=== PATIENT | male | born 1950 ===

== ENCOUNTER 2024-02-24 13:03 | Outpatient (REF) | payer OTHER, MEDICAID, SELFPAY ==
[2024-02-24 16:47] LABS: Urine Cytology See Pathology rpt
== END 2024-02-24 13:04 | disposition home or self-care (01) ==
LOC: HO.LAB 13:03
PROVIDERS: PCP Nurse Practitioner Family; Visit Provider Urology
DX: N39.0 Urinary tract infection, site not specified (principal); N50.89 Other specified disorders of the male genital organs; R32 Unspecified urinary incontinence; N40.1 Benign prostatic hyperplasia with lower urinary tract symptoms; R30.0 Dysuria; Z13.9 Encounter for screening, unspecified
CPT/HCPCS: 51798; 81003; 87086; 88112; 99202

== ENCOUNTER 2024-02-24 13:03 | Outpatient (AMB) | payer OTHER, MEDICAID, SELFPAY ==
--- NOTE | 2024-02-24 13:18 | MHC.OFFVIS ---
Intake Visit Reasons: scrotal abcess Intake Note: Patient is present for [facility]CR[facility] ABC[facility] Urology Medication:FINASTERIDE Antibiotic Allergy:NONE Blood Thinner:ASPIRIN TODAYS PVR:0ML'S [employer] Promotional Sales Required: No Allergies No Known Allergies Allergy (Verified 02/24/24 13:19) HPI Comments Details: States had colonscopy, and 2-3 days later, there was swelling in the testicle he states he received a cream which improved the swelling and now his symptoms are resolved. He states it ibanez when he urinates. He wears pull ups Review of Systems Const All systems reviewed & are unremarkable except as noted in HPI and below Reports no additional complaints Eyes Reports no additional complaints ENT Reports no additional complaints Card Reports no additional complaints Resp Reports no additional complaints GI Reports no additional complaints Reports as per HPI Musc Reports no additional complaints Skin/Breast Reports system reviewed and no additional complaints, except as documented Neuro Reports no additional complaints Psych Reports no additional complaints Endo Reports no additional complaints Vivek/Lymph Reports no additional complaints Aller/Immun Reports no additional complaints Physical Exam Const General: healthy appearing, no acute distress and well developed Orientation/consciousness: patient oriented x3 HEENT Head: Yes normocephalic and Yes atraumatic Eyes Conjunctivae: conjunctivae normal Neck Neck: Yes normal visual inspection Chest Chest palpation & inspection: normal inspection of the chest Resp Effort & Inspection: normal respiratory effort Cardio Rate: regular rate GI Inspection: Yes normal to inspection Palpation (GI): Soft to palpation Other: bilateral testicles, no swelling, nontender Penis: uncircumcised and phimosis Scrotum: scrotum normal Skin General skin exam: no rashes or lesions noted Neuro General: patient oriented x3 Psych Appearance: grossly normal Affect: normal affect Office Procedures Post Void Residual Post Residual Void Post Void Residual (PVR): 0 [id number] Void Residual by ultrasound Assessment & Plan Assessment & Plan Orders: Orders AMB Urinalysis Automated Today Z13.9 - Encounter for screening, unspecified Coding CPT Codes Post Residual Void - PVR CPT Code: [id number] Void Residual by ultrasound ([id number])
== END 2024-02-24 14:41 | disposition home or self-care (01) ==
PROVIDERS: PCP Nurse Practitioner Family; Visit Provider Urology
DX: Z13.9 Encounter for screening, unspecified (principal)

== ENCOUNTER 2024-03-07 08:57 | Outpatient (REF) | payer OTHER, SELFPAY ==
[2024-03-07 11:08] LABS: Prostate Specific Antigen 0.41 ng/mL (<0.05-4.0)
== END 2024-03-07 08:58 | disposition home or self-care (01) ==
LOC: HO.LAB 08:57
PROVIDERS: PCP Internal Medicine; Visit Provider Urology
DX: N41.2 Abscess of prostate (principal); Z12.5 Encounter for screening for malignant neoplasm of prostate
CPT/HCPCS: 36415; 84153

== ENCOUNTER 2024-03-30 09:31 | Outpatient (REF) | payer OTHER, SELFPAY ==
--- NOTE | ~2024-03-30 | US_ITS ---
CLINICAL HISTORY: R39.9 - UTI SYMPTOMS US Renal Comparison: None Findings: Right kidney normal size and echotexture, 13 cm length. Multiple benign cysts are noted. Left kidney normal size and echotexture, 11.7 cm length. Left-sided hydronephrosis and hydroureter. Normal color Doppler. The bladder is thick-walled, trabeculated and exhibits multiple diverticulum. Prevoid volume 400 mL. Postvoid volume 261 mL. Floating debris is present within the bladder. Bilateral ureteral jets are visualized. The prostate volume is 46 mL. IMPRESSION: Thick-walled trabeculated bladder with multiple diverticulum and significant postvoid residual. Left-sided hydronephrosis and hydroureter. This document has been electronically signed by: Garrison Martinez MD on 03/30/2024 13:16:53
--- OUTSIDE RECORDS SUMMARY | 2024-03-30 10:00 | XMS_ITS | Encounter Summary ---
Author Organization [facility] Address [address] [place] [address] Care Team Providers Care Webfocus Developer Name Role Phone Jos Pineda MD Primary Care Provider [phone] Reason for Visit * Reason Onset Date Comments Request For Order(s) 03/27/2024 [facility] - [id number] Encounter Details Date Type Department Care Team (Late st Contact Info) Description 03/27/2024 Telephone Internal Medicine - [place] [address] [place] [address] Nohelia Melo MA Request For Order(s) (Formerly [facility] - L3F7/) Social History Tobacco Use Types Packs/Day Years Used Date Smoking Tobacco: Every Day Cigarettes Smokeless Tobacco: Former Alcohol Use Standard Drinks/Week Comments No 0 (1 standard drink = 0.6 oz pur e alcohol) Sex and Gender Information Value Date Recorded Sex Assigned at Not on file Legal Sex Male 7:40 PM EST Gender Identity Not on file Sexual Orientation Not on file documented as of this encounter Progress Notes * Nohelia Melo MA - 03/29/2024 7:28 AM EST Scanned into chart and faxed to [facility] [phone] * Nohelia Melo MA - 03/27/2024 8:08 AM EST [facility] - L3F7 Please sign & fax [phone] documented in this encounter Plan of Treatment Upcoming Encounters Date Type Department Care Team (Late st Contact Info) Description 04/11/2024 10:00 AM EST Ancillary Procedure [facility] - [facility] 154 [address] [facility] 154 [place] [address] 04/27/2024 8:45 AM EDT Office Visit Orthopedic Surgery - [place] 250 175 [facility] 250 [place] [address] Sravan Jimenez DPM [address] [address] 05/05/2024 3:40 PM EDT Office Visit Endocrinology [facility] [address] [place] [address] Kylee Rueda PA 444 [place] [address] 08/30/2024 8:30 AM EDT Office Visit Internal Medicine - [place] 175 [facility] 200 [place] [address] Jos Pineda MD [address] [address] documented as of this encounter Visit Diagnoses Not on filedocumented in this encounter Additional Health Concerns Assessment Noted Time PHQ-9 Depression Total Score: 2 03/01/19 9:22 AM EST A fall risk assessment has been complete d for the patient 03/01/2024 9:19 AM EST documented as of this encounter Care Teams Webfocus Developer Relationship Specialty Start Date End Date Jos Pineda MD [address] [address] PCP - General Internal Medicine 12/17/17 documented as of this encounter
--- OUTSIDE RECORDS SUMMARY | 2024-03-30 10:00 | XMS_ITS | Encounter Summary ---
Author Organization [facility] Address [address] [place] [address] Care Team Providers Care Etcher Electrolytic Name Role Phone Jos Pineda MD Primary Care Provider [phone] Reason for Visit * Reason Onset Date Comments Request For Order(s) 03/27/2024 [facility] Care Cert 02/27/24-04/26/24 Encounter Details Date Type Department Care Team (Late st Contact Info) Description 03/27/2024 Telephone Internal Medicine - [place] [address] [place] [address] Nohelia Melo MA Request For Order(s) ([facility] Health Care Cert 02/27/24-04/26/24/) Social History Tobacco Use Types Packs/Day Years [...] Notes * Nohelia Melo MA - 03/29/2024 7:18 AM EST Scanned into chart and faxed to [facility] [phone] * Nohelia Melo MA - 03/27/2024 8:17 AM EST [facility] Health Care Cert 02/27/24-04/26/24 Please sign & fax [phone] documented in this encounter Plan of Treatment Upcoming Encounters Date Type Department Care Team (Late st Contact Info) Description 04/11/2024 10:00 AM EST Ancillary Procedure [facility] - [facility] 154 [address] [facility] 154 [place] [address] 04/27/2024 8:45 AM EDT Office Visit Orthopedic Surgery - [place] [address] [address] Sravan Jimenez DPM [address] [address] 05/05/2024 3:40 PM EDT Office [place] [facility] [address] [place] [address] Kylee Rueda PA [address] [place] [address] 08/30/2024 8:30 AM EDT Office Visit Internal Medicine [facility] 175 [facility] 200 [place] [address] Jos Pineda MD [address] [address] documented as of this encounter Visit Diagnoses Not on filedocumented in this encounter Additional Health Concerns Assessment Noted Time PHQ-9 Depression Total Score: 2 03/01/19 9:22 AM EST A fall risk assessment has been complete d for the patient 03/01/2024 9:19 AM EST documented as of this encounter Care Teams Etcher Electrolytic Relationship Specialty Start Date End Date Jos Pineda MD 175 [facility] 200 [place] [address] PCP - General Internal Medicine 12/17/17 documented as of this encounter
--- OUTSIDE RECORDS SUMMARY | 2024-03-30 10:00 | XMS_ITS | Clinical Summary ---
Author Organization [facility] Address [address] [place] [address] Care Team Providers Care Field Reimbursement Manager Name Role Phone Unavailable Primary Care Provider Unavailabl e Source Comments PLEASE NOTE, if this patient is a minor, it may be UNLAWFUL to discuss sensitive information that is contained in these records (such as FAMILY PLANNING, MENTAL HEALTH or SUBSTANCE ABUSE) with the minor patient's parent or other person without the patient's specific authorization.[facility] Allergies No known active allergies Medications divalproex (DEPAKOTE) [address] tabletIndications :Mood disorder (HCC-CMS) Take 1 Tab by mouth once daily. Swallow whole. Do not crush or chew. 6 Active divalproex (DEPAKOTE ER) 500 mg 24 hr tabletIndications :Mood disorder (HCC-CMS) Take 1 Tab by mouth nightly at bedtime. Swallow whole. Do not crush or chew. 6 Active risperiDONE (RISPERDAL) 2 mg tabletIndications :Mood disorder (HCC-CMS) Take 1 Tab by mouth 2 (two) times daily. 6 Active OLANZapine (ZYPREXA) 15 mg tabletIndications :Mood disorder (HCC-CMS) Take 1 Tab by mouth nightly at bedtime. 6 Active diphenhydrAMINE (BENADRYL) 50 mg tabletIndications :Insomnia due to other mental disorder Take 1 Tab by mouth nightly at bedtime as needed for sleep. 6 Active aspirin (ASPIRIN LOW DOSE) [address] tabletIndications :Diabetes mellitus type 2 in nonobese (HCC-CMS) Take 1 Tab by mouth once daily. 6 Active amLODIPine (NORVASC) 5 mg tabletIndications :Essential hypertension Take 1 Tab by mouth once daily. 6 Active lisinopril (PRINIVIL,ZESTRIL ) 5 mg tabletIndications :Essential hypertension 2.5 mg daily 6 Active metoprolol (LOPRESSOR) 25 mg tabletIndications :Essential hypertension 12.5 mg daily 6 Active simvastatin (ZOCOR) 20 mg tabletIndications :Dyslipidemia Take 1 Tab by mouth nightly at bedtime. 6 Active insulin glargine (LANTUS) 100 unit/mL injectionIndicati ons:Diabetes mellitus type 2 in nonobese ([facility]) Inject 80 Units into the skin once daily. 10 mL 6 Active liraglutide (VICTOZA) 0.6 mg/0.1 mL (18 mg/3 mL) injection penIndications:Di abetes mellitus type 2 in nonobese ([facility]) Inject 1.2 mg into the skin once daily. 6 Active Active Problems No known active problems Family History Medical History Relation Name Comments Depression Maternal Grandmother Diabetes Mother Relation Name Status Comments Father Maternal Grandmother Mother Alive Social History Tobacco Use Types Packs/Day Years Used Date Smoking Tobacco: Every Day Comments:since age 19 years of age, 1 pack a day Alcohol Use Standard Drinks/Week Comments No 0 (1 standard drink = 0.6 oz pur e alcohol) Social Connections Answer Date Recorded Connectedness 0 11/04/2023 Financial Resource Strain Answer Date R ecorded Financial Resource Strain 0 2020 Stress Answer Date Recorded Stress 0 02/06/2021 Physical Activity Answer Date Recorded Physical Activity 0 02/06/2021 Food Insecurity Answer Date Recorded Food 0 11/11/2023 Transportation Needs Answer Date Record ed Transportation 0 02/06/2021 Housing Stability Answer Date Recorded Housing 0 02/06/2021 Safety and Environment Answer Date Yaya rded Safety 0 02/06/2021 Utilities Answer Date Recorded Utilities 0 02/06/2021 Employment Answer Date Recorded Stress 0 11/04/2023 Sex and Gender Information Value Date Recorded Sex Assigned at Not on file Legal Sex Male 7:26 AM PDT Gender Identity Not on file Sexual Orientation Not on file Last Filed Vital Signs Vital Sign Reading Time Taken Comments Blood Pressure 110/68 08/23/2015 10:22 AM EDT Pulse 80 08/23/2015 10:22 AM EDT Temperature 36.5 ??C (97.7 ??F) 08/23/2015 10:22 AM E DT Respiratory Rate 16 08/23/2015 10:22 AM EDT Oxygen Saturation - - Inhaled Oxygen Concentration - - Weight 94.8 kg (209 lb) 08/23/2015 10:22 AM EDT Height 186.7 cm (6' 1.5 ) 08/23/2015 10:22 AM ED T Body Mass Index 27.2 08/23/2015 10:22 AM EDT Plan of Treatment Not on file Insurance MEDICARE - [place] MEDICAID
--- OUTSIDE RECORDS SUMMARY | 2024-03-30 10:00 | XMS_ITS | Encounter Summary ---
Author Organization [facility] Address [address] [place] [address] Care Team Providers Care Nibbler Operator Name Role Phone Jos Pineda MD Primary Care Provider [phone] Encounter Details Date Type Department Care Team (Late st Contact Info) Description 03/02/2024 Telephone Internal Medicine - [place] 175 [facility] 200 [place] [address] Jos Pineda MD 175 [facility] 200 [place] [address] Social History Tobacco Use Types Packs/Day Years [...] as of this encounter Progress Notes * Daily Gunn - 03/02/2024 9:16 AM EST Patient needs referral Podiatry - diabetic foot care. documented in this encounter Plan of Treatment Upcoming Encounters Date Type Department Care Team (Late st Contact Info) Description 04/11/2024 10:00 AM EST Ancillary Procedure [facility] - [facility] [address] [facility] 154 [place] [address] 04/27/2024 8:45 AM EDT Office Visit Orthopedic Surgery - [place] 250 175 [facility] 250 [place] [address] Sravan Jimenez DPElisha [address] [address] 05/05/2024 3:40 PM EDT Office Visit [place] [facility] [address] [place] [address] Kylee Rueda PA [address] [place] [address] 08/30/2024 8:30 AM EDT Office Visit Internal Medicine - [place] [address] [address] Jos Pineda MD [address] [address] documented as of this encounter Visit Diagnoses Not on filedocumented in this encounter Additional Health Concerns Assessment Noted Time PHQ-9 Depression Total Score: 2 03/01/19 9:22 AM EST A fall risk assessment has been complete d for the patient 03/01/2024 9:19 AM EST documented as of this encounter Care Teams Nibbler Operator Relationship Specialty Start Date End Date Jos Pineda MD [address] [address] PCP - General Internal Medicine 12/17/17 documented as of this encounter
--- OUTSIDE RECORDS SUMMARY | 2024-03-30 10:00 | XMS_ITS | Encounter Summary ---
Author Organization [facility] Address [address] [place] [address] Care Team Providers Care Content Development Specialist Name Role Phone Jos Pineda MD Primary Care Provider [phone] Reason for Visit * Reason Onset Date Comments Request For Order(s) 03/27/2024 [facility] - LXGY Encounter Details Date Type Department Care Team (Late st Contact Info) Description 03/27/2024 Telephone Internal Medicine - [place] [address] [facility] [address] [place] [address] Nohelia Melo MA Request For Order(s) ([facility] Care - LXGY) Social History Tobacco Use Types Packs/Day Years [...] Notes * Nohelia Melo MA - 03/29/2024 7:30 AM EST Scanned into chart and faxed to [facility] [phone] * Nohelia Melo MA - 03/27/2024 7:36 AM EST [facility] Care - LXGY Please sign & fax [phone] documented in this encounter Plan of Treatment Upcoming Encounters Date Type Department Care Team (Late st Contact Info) Description 04/11/2024 10:00 AM EST Ancillary Procedure [facility] - [facility] 154 [address] [facility] 154 [place] [address] 04/27/2024 8:45 AM EDT Office Visit Orthopedic Surgery - [place] 250 175 [facility] 250 [place] [address] Sravan Jimenez, DPM [address] [address] 05/05/2024 3:40 PM EDT Office Visit Endocrinology [facility] [address] [place] [address] Kylee Rueda PA [address] [place] [address] 08/30/2024 8:30 AM EDT Office Visit Internal Medicine - [place] 175 [facility] 200 [place] [address] Jos Pineda MD [address] [address] documented as of this encounter Visit Diagnoses Not on filedocumented in this encounter Additional Health Concerns Assessment Noted Time PHQ-9 Depression Total Score: 2 03/01/19 9:22 AM EST A fall risk assessment has been complete d for the patient 03/01/2024 9:19 AM EST documented as of this encounter Care Teams Content Development Specialist Relationship Specialty Start Date End Date Jos Pineda MD [address] [address] PCP - General Internal Medicine 12/17/17 documented as of this encounter
--- OUTSIDE RECORDS SUMMARY | 2024-03-30 10:01 | XMS_ITS | Encounter Summary ---
Author Organization [facility] Address [address] [place] [address] Care Team Providers Care Safety Equipment Tester Name Role Phone Jos Pineda MD Primary Care Provider Reason for Referral * Consultation (Routine) - Authorized Specialty Diagnoses / Procedures Referred By Contact Referred To Contact Podiatry / Orthopaedic Surgery Diagnoses Dermatophytosis of nail Jos Pineda MD 175 [facility] [address] [place] [address] Phone: tel: fax: Sravan Jimenez, DPM 175 [facility] [address] [place] [address] Phone: tel: fax: Referral ID Status Reason Start Date Expiration Date Visits Requested Visits Authorized [id number] Authorized Specialty Services Required 03/01/2024 03/01/2025 1 1 Reason for Visit * Reason Comments Medicare Annual Wellness Visit [facility] t Encounter Details Date Type Department Care Team (Late st Contact Info) Description 03/01/2024 9:30 AM EST Office Visit Internal Medicine - [place] 175 [facility] [address] [place] [address] Jos Pineda MD 175 [facility] 200 [place] [address] Type 2 diabetes mellitus without complication, with long-term current use of insulin ([facility]) (Primary Dx); Primary hypertension; Dermatophytosis of nail; Smoker Social History Tobacco Use Types Packs/Day Years [...] on file documented as of this encounter Last Filed Vital Signs Vital Sign Reading Time Taken Comments Blood Pressure 134/80 03/01/2024 9:16 AM EST Pulse 66 03/01/2024 9:16 AM EST Temperature 36.3 ??C (97.3 ??F) 03/01/2024 9:16 AM ES T Respiratory Rate - - Oxygen Saturation 97% 03/01/2024 9:16 AM EST Inhaled Oxygen Concentration - - Weight 92.5 kg (204 lb) 03/01/2024 9:16 AM EST Height 185.4 cm (6' 1 ) 03/01/2024 9:16 AM EST Body Mass Index 26.91 03/01/2024 9:16 AM EST documented in this encounter Ordered Prescriptions Prescription Sig Dispense Quantity Refills Last Filled Start Date End Date atorvastatin (LIPITOR) 10 mg tablet Take 1 tablet (10 mg total) by mouth 1 (one) time each day. 30 each 5 03/01/2024 08/28/2024 documented in this encounter Progress Notes * Jos Pineda MD - 03/01/2024 9:30 AM ESTAssociated Problem(s): Diabetes mellitus type 2, uncomplicated ([facility]) Diabetes need better control on Lantus insulin metformin and Humalog insulin A1c done recently was 8 * Jos Pineda MD - 03/01/2024 9:30 AM ESTAssociated Problem(s): Hypertension Hypertension is under control on lisinopril and amlodipine. * Jos Pineda MD - 03/01/2024 9:30 AM ESTAssociated Problem(s): Dermatophytosis of nail Orders: Ambulatory referral to Podiatry; Future * Jos Pineda MD - 03/01/2024 9:30 AM ESTAddended by: JOS PINEDA on: 03/13/2024 06:27 PM Modules accepted: Level of Service * Jos Pineda MD - 03/01/2024 9:30 AM EST Images from the original note were not included. Medicare Annual Wellness Visit Note Patient Name: Koko Sosa Date of : 1950 Race: Black or Koko chose not to disclose race. This has been discussed with the patient and they still prefer not to disclose their race. Ethnicity: Not Hispan/Lat Date of Service: 03/01/2024 Koko is a 73 y.o. male presenting for Medicare Annual Wellness Visit Subsequent History of Present Illness HPI Diabetes needs better control on metformin Lantus insulin and Humalog. Hypertension is under control on amlodipine and lisinopril. Comprehensive Medical and Social History: Patient Active Problem List Diagnosis Atrioventricular block, complete (CMS/HCC) Benign prostatic hyperplasia Cellulitis of leg, left Coronary artery disease Dermatophytosis of nail Diabetes mellitus type 2, uncomplicated (CMS/HCC) Dysphagia Edema Fall GERD (gastroesophageal reflux disease) Hyperlipidemia Hypertension Lactose intolerance Pulmonary nodules/lesions, multiple Schizophrenia (CMS/HCC) Sacral wound Type 2 diabetes mellitus with diabetic neuropathy, unspecified (CMS/HCC) Essential (primary) hypertension Schizoaffective disorder, unspecified (CMS/HCC) Gastro-esophageal reflux disease without esophagitis 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 Follow instructions given by office for timing diphenhydrAMINE (BENADRYL) 25 mg tablet 25 mg as needed. divalproex (DEPAKOTE) [address] tablet Take 500 mg by mouth 2 times daily. 500 mg in AM and 1000mg in PM finasteride (PROSCAR) 5 mg tablet Take 1 tablet (5 mg total) by mouth 1 (one) time each day. furosemide (LASIX) 20 mg tablet Take 1 tablet (20 mg total) by mouth 1 (one) time each day. gabapentin (NEURONTIN) 100 mg capsule Take 100 mg by mouth daily. Per [facility] report ibuprofen (ADVIL,MOTRIN) 600 mg tablet Take 1 tablet by mouth every 6 hours as needed for Pain. Take with food. insulin lispro (HumaLOG KwikPen Insulin) 100 unit/mL injection pen Use before each meal, up to 3 times a day, sliding scale 100-149: 0 units 150-199: 2 units 200-249: 3 units 250-299: 4 units 300-349:5 units 350-400: 6 units Greater than 400, call me. Lantus Solostar U-100 Insulin 100 unit/mL (3 mL) injection pen INJECT 48-50 UNITS INTO THE SKIN AT BEDTIME. 48-50 U PER NIGHT 45 mL 2 lisinopriL (PRINIVIL,ZESTRIL) 2.5 mg tablet Take 1 tablet (2.5 mg total) by mouth 1 (one) time eachday. metFORMIN (GLUCOPHAGE) 1,000 mg tablet TAKE 1 TABLET BY MOUTH TWICE A DAY WITH MEALS 180 tablet 1 metoprolol succinate (TOPROL-XL) 25 mg 24 hr tablet Take 1 tablet (25 mg total) by mouth 1 (one) time each day. naproxen sodium (ANAPROX) 220 mg tablet Take 1 Tablet by mouth 2 times daily (with meals). OLANZapine (ZyPREXA) 10 mg tablet Take 10 mg by mouth at bedtime. Per [facility] report pen needle, diabetic (BD Ultra-Fine Short Pen Needle) 31 gauge x 5/16 needle USE WITH INSULIN PEN ONCE DAILY. polyethylene glycol (GoLYTELY) 236-22.74-6.74 -5.86 gram solution Take 240 mL by mouth once for 1 dose. Take 4L by mouth once for one dose. May substitue any PEG. Starting at 6PM the night before your procedure drink 1 8oz glasses at your own pace until rectals run clear risperiDONE (RisperDAL) 2 mg tablet Take 2 mg by mouth 2 times daily. senna-docusate (Senna with Docusate Sodium) 8.6-50 mg per tablet Take 1 Tablet by mouth daily for 360 days tamsulosin (FLOMAX) 0.4 mg 24 hr capsule Take 1 Capsule by mouth daily. Take 30 mins after same meal every day. No current facility-administered medications for this visit. Past Medical History: Diagnosis Date Benign prostatic hyperplasia 05/23/2019 DX:Benign prostatic hyperplasia Coronary artery disease 05/23/2019 DX:Coronary artery disease; COMMENT: Old [place] 1995 Dermatophytosis of nail 01/26/2013 DX:Dermatophytosis of nail Diabetes mellitus type 2, uncomplicated ([facility]) 05/13/2017 DX:Diabetes mellitus type 2, uncomplicated ([facility]) GERD (gastroesophageal reflux disease) 05/23/2019 DX:GERD (gastroesophageal reflux disease) History of encephalopathy 04/14/2017 DX:History of encephalopathy History of rhabdomyolysis 04/14/2017 DX:History of rhabdomyolysis Hyperlipidemia 05/13/2017 DX:Hyperlipidemia Hypertension 05/13/2017 DX:Hypertension Lactose intolerance 05/23/2019 DX:Lactose intolerance Pulmonary nodules/lesions, multiple 09/04/2014 DX:Pulmonary nodules/lesions, multiple S/P placement of cardiac pacemaker 05/13/2017 DX:S/P placement of cardiac pacemaker; COMMENT: Comments: 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 Sacral wound 03/30/2017 DX:Sacral wound Schizophrenia ([facility]) 05/13/2017 DX:Schizophrenia ([facility]) Tobacco abuse disorder DX:Tobacco abuse disorder Past Surgical History: Procedure Laterality Date CATARACT EXTRACTION Bilateral 10/2014 PROCEDURE: HISTORICAL CATARACT REMOVAL COLONOSCOPY 12/19/2001 PROCEDURE: HISTORICAL COLONOSCOPY COLONOSCOPY 06/18/2016 PROCEDURE: HISTORICAL COLONOSCOPY; COMMENT: repeat 3 years OTHER SURGICAL HISTORY PROCEDURE: ME BIOPSY TESTIS INCISIONAL SEPARATE PROCEDURE Social History Socioeconomic History Marital status: Single Spouse name: Not on file Number of children: Not on file Years of education: 11 Highest education level: Not on file Occupational History Not on file Tobacco Use Smoking status: Every Day Current packs/day: 1.00 Types: Cigarettes Smokeless tobacco: Former Substance and Sexual Activity Alcohol use: No Drug use: Not Currently Types: Cocaine Sexual activity: Not on file Other Topics Concern Not on file Social History Narrative Not on file Family History Problem Relation Name Age of Onset Diabetes Mother 80.00 Other (Other: unkown) Father 52.00 Immunizations: Immunization History Administered Date(s) Administered Influenza, Unspecified 12/05/2020 [employer] SARS-CoV-2 COVID-19, vector-nr, rS-Ad26, preservative free 05/03/2020 Pfizer (ages 12 & older) Bivalent, COVID-19 04/04/2022 Pfizer SARS-CoV-2 COVID-19, mRNA, LNP-S, preservative free 12/05/2020 Pneumococcal conjugate 20 valent (Prevnar 20, PCV 20) 2mo and older 03/19/2022 Hospitalization in the last year: Has not been hospitalized in the past 12 months. Current Providers and Suppliers: Patient Care Team: Jos Pineda MD as PCP - General (Internal Medicine) Eliseo Morejon MD as Surgeon (Cardiology) Olivia Haskins NP as Nurse Practitioner (Cardiology) Patient does not have/use current medical supplier Risk Assessments: Cognitive Function Assessment No cognitive concerns, No screenings indicated. Depression Screening (PHQ2/9): Depression Screening Over the last 2 weeks, how often have you been bothered by little interest or pleasure in doing things?: Several days Over the last 2 weeks, how often have you been bothered by feeling down, depressed, or hopeless?: Several days Depression Risk: 2 PHQ9 Full Set of Questions Over the last 2 weeks, how often have you been bothered by little interest or pleasure in doing things?: Several days Over the last 2 weeks, how often have you been bothered by feeling down, depressed, or hopeless?: Several days Over the last 2 weeks, how often have you been bothered by trouble falling or staying asleep, or sleeping too much?: Not at all Over the last 2 weeks, how often have you been bothered by feeling tired or having little energy?: Not at all Over the last 2 weeks, how often have you been bothered by poor appetite or overeating? : Not at all Over the last 2 weeks, how often have you been bothered by feeling bad about yourself -- or that you are a failure or have let yourself or your family down?: Not at all Over the last 2 weeks, how often have you been bothered by trouble concentrating on things, such asreading the newspaper or watching television?: Not at all Over the last 2 weeks, how often have you been bothered by moving or speaking so slowly that other people could have noticed? Or the opposite -- being so fidgety or restless that you have been movingaround a lot more than usual?: Not at all Over the last 2 weeks, how often have you been bothered by thoughts that you would be better off or of hurting yourself in some way?: Not at all Depression Risk Score NEW: 2 Depression Plan : Screen was negative Anxiety Screening: Alcohol Screening: Substance Abuse Screening: Pain: Pain Medications: Patient does not take any opioid medications BMI: Body mass index is 26.91 kg/m??. The BMI is above average. No BMI management plan is appropriate. Functional Ability and Level of Safety Review Health Status: In general, the patient reports health as: good In general, patient reports life as: good Patient reports sleep pattern as: sleeping well Activity of Daily Living (ADLs): Do you need help from others for your personal care such as eating, dressing, toileting, or gettingaround the house?: No Do you experience incontinence?: Yes Instrumental Activities of Daily Living (IADLs): Do you need help with using the telephone?: No Do you need help with shopping?: No Do you need help with food preparation?: No Do you need help with housekeeping?: No Do you need help with laundry?: No Do you need help handling finances?: No Do you drive?: No Do you manage your own medication?: No Physical Activity: Do you exercise for about 20 minutes or more three days a week?: Yes, always Nutritional Assessment: Do you eat a balanced diet including daily serving of fruits, vegetables, and whole grains?: Yes, most of the time Social Influencer of Health (SIOH): Sexual Health: Have you been bothered by sexual problems: No Fall Risk: Have you fallen in the past year? no. Are you worried about falling? no. . Hearing: No data recorded Vision Screening: Required for Medicare Initial Preventative Physical Exam (IPPE) No data recorded Objective BP 134/80 (BP Location: Right arm, Patient Position: Sitting, BP Cuff Size: Adult long) Pulse 66 Temp 36.3 ??C (97.3 ??F) (Temporal) Ht 1.854 m (73 ) Wt 92.5 kg (204 lb) BMI 26.91 kg/m?? SpO2: 97 % Physical Exam Cardiovascular heart sound normal lungs clear abdomen negative ENVIRONMENTAL ENGINEERING MANAGER nonfocal. Assessment/Plan Patient presented today for an Initial Medicare Wellness Visit with management of chronic condition(s). Assessment & Plan Type 2 diabetes mellitus without complication, with long-term current use of insulin ([facility]) Diabetes need better control on Lantus insulin metformin and Humalog insulin A1c done recently was 8 Primary hypertension Hypertension is under control on lisinopril and amlodipine. Dermatophytosis of nail Orders: Ambulatory referral to Podiatry; Future Smoker Still smokes half pack per day. Advised to quit smoking. Advance Care Planning Discussion: Advance Care Planning was discussed. Koko reports that he does not have advance directives or surrogate decision maker. Patient has not identified their surrogate decision maker. During the visit we discussed: Code Status was discussed No Order A total time of 16 minutes or greater was spent on Advance Care Planning today :No Fall Prevention Education Discussed: clear pathways/stairs Health Maintenance Topic Date Due Diabetes: Annual Foot Exam Never done Diabetes: Annual Retina Eye Exam Never done DTaP,Tdap,and Td Vaccines (1 - Tdap) Never done Hepatitis A Vaccines (1 of 2 - Risk 2-dose series) Never done Zoster Vaccines (1 of 2) Never done RSV Immunization Patients 60+ Years Old (1 - Risk 60-74 years 1-dose series) Never done Abdominal Aortic Aneurysm (AAA) Screen Never done Depression Screening Never done Hepatitis C Screening Never done Social Influencers of Health Screening Never done Medicare Annual Wellness Visit Never done Influenza Vaccine (1) 10/17/2023 COVID-19 Vaccine ( season) 2023 Diabetes: Blood Sugar Control Test (HGBA1C) 08/07/2024 Diabetes: Annual GFR (Glomerular Filtration Rate) 02/06/2025 Diabetes: Annual Urine Albumin-Creatinine Ratio (uACR) 02/06/2025 Hypertension/CHF/CAD Annual BMP Blood Test 02/06/2025 Falls Risk Assessment 03/01/2025 Cholesterol Screening (Lipid Panel) 09/17/2027 Colorectal Cancer Screening: Colonoscopy 10/25/2033 Pneumococcal Vaccine: 65+ Years Completed HIB Vaccines Aged Out Hepatitis B Vaccines Aged Out IPV Vaccines Aged Out MMR Vaccines Aged Out Varicella Vaccines Aged Out Meningococcal ACWY Vaccine Aged Out HPV Vaccines Aged Out RSV Immunization Patients Under 20 months Aged Out Fall risk is negative .depression screen negative .he is independent of activities of daily living.Home situation is safe .current on immunization and screening guidelines Jos Pineda MD INTERNAL MEDICINE - [place] 175 [facility] 200 [facility] [address] Dept: [phone] Dept documented in this encounter Plan of Treatment Upcoming Encounters Date Type Department Care Team (Late st Contact Info) Description 04/11/2024 10:00 AM EST Ancillary Procedure [facility] 154 [address] [facility] 154 [place] [address] 04/27/2024 8:45 AM EDT Office Visit Orthopedic Surgery - [place] [address] [address] Sravan Jimenez DPM [address] [address] 05/05/2024 3:40 PM EDT Office Visit Endocrinology [address] [address] Kylee Rueda PA [address] [place] [address] 08/30/2024 8:30 AM EDT Office Visit Internal Medicine - [place] 175 [facility] 200 [place] [phone] Jos Pineda MD [address] [address] Scheduled Referrals Name Type Priority Associated Diagnoses Order Schedule Ambulatory referral to Podiatry Outpatient Referral Routine Dermatophytosis of nail 1 Occurrences starting 03/01/2024 until 03/01/2025 documented as of this encounter Visit Diagnoses Diagnosis Type 2 diabetes mellitus without complication, with long-term current use of insulin ([facility])- Primary Primary hypertension Unspecified essential hypertension Dermatophytosis of nail Smoker Tobacco use disorder Encounter for adjustment or management of cardiac device documented in this encounter Additional Health Concerns Assessment Noted Time PHQ-9 Depression Total Score: 2 03/01/19 25 9:22 AM EST A fall risk assessment has been complete d for the patient 03/01/2024 9:19 AM EST documented as of this encounter Care Teams Safety Equipment Tester Relationship Specialty Start Date End Date Jos Pineda MD [address] [address] PCP - General Internal Medicine 12/17/17 documented as of this encounter
--- OUTSIDE RECORDS SUMMARY | 2024-03-30 10:01 | XMS_ITS | Encounter Summary ---
Author Organization [facility] Address [address] [place] [address] Care Team Providers Care Laborer Filter Plant Name Role Phone Jos Pineda MD Primary Care Provider [phone] Reason for Visit * Reason Onset Date Comments MEDICATION 02/29/2024 Encounter Details Date Type Department Care Team (Late st Contact Info) Description 02/29/2024 Telephone Endocrinology - [place] [address] [place] [address] Kylee Rueda PA [address] [place] [address] MEDICATION Social History Tobacco Use Types Packs/Day Years [...] as of this encounter Progress Notes * MIRELLA Zuleta - 03/01/2024 5:15 PM EST FYI * Sasha Villa - 02/29/2024 2:15 PM EST Lana from [facility] is calling, asking provider to consider a statin at next OV for his diabetes. No upcoming OV documented in this encounter Plan of Treatment Upcoming Encounters Date Type Department Care Team (Late st Contact Info) Description 04/11/2024 10:00 AM EST Ancillary Procedure [facility] - [facility] 154 300 [facility] 154 [place] [address] 04/27/2024 8:45 AM EDT Office Visit Orthopedic Surgery - [place] 250 175 [facility] 250 [place] [address] Sravan Jimenez, DPM 175 [facility] 250 [place] [address] 05/05/2024 3:40 PM EDT Office Visit Endocrinology [facility] [address] [place] [address] Kylee Rueda PA [address] [place] [address] 08/30/2024 8:30 AM EDT Office Visit Internal Medicine - [place] 175 [facility] 200 [place] [address] Jos Pineda MD [address] [address] documented as of this encounter Visit Diagnoses Not on filedocumented in this encounter Care Teams Laborer Filter Plant Relationship Specialty Start Date End Date Jos Pineda MD 175 [facility] 200 [place] [address] PCP - General Internal Medicine 12/17/17 documented as of this encounter
--- OUTSIDE RECORDS SUMMARY | 2024-03-30 10:01 | XMS_ITS | Encounter Summary ---
Author Organization [facility] Address [address] [place] [address] Care Team Providers Care Welder Journeyman Name Role Phone Jos Pineda MD Primary Care Provider [phone] Reason for Visit * Reason Onset Date Comments Scheduling Recall 02/18/2024 Encounter Details Date Type Department Care Team (Late st Contact Info) Description 02/18/[address] [place] [phone] Eliseo Morejon MD [address] [place] [address] [address] [place] [address] Scheduling Recall Social History Tobacco Use Types Packs/Day Years [...] as of this encounter Progress Notes * Leslye Cabrera - 02/18/2024 8:50 AM EST I called the patient to schedule a follow up office visit and no answer. I left a message on the machine with details and the number to call back and schedule at their earliest convenience. documented in this encounter Plan of Treatment Upcoming Encounters Date Type Department Care Team (Late st Contact Info) Description 04/11/2024 10:00 AM EST Ancillary Procedure [facility] 154 [address] [facility] 154 [place] [address] 04/27/2024 8:45 AM EDT Office Visit Orthopedic Surgery - [place] 250 175 [facility] 250 [place] [address] Sravan Jimenez, DPM 175 [facility] 250 [place] [address] 05/05/2024 3:40 PM EDT Office Visit Endocrinology - [place] [address] [place] [address] Kylee Rueda PA [address] [place] [address] 08/30/2024 8:30 AM EDT Office Visit Internal Medicine - [place] 175 [facility] 200 [place] [address] Jos Pineda MD 175 [facility] 200 [place] [address] documented as of this encounter Visit Diagnoses Not on filedocumented in this encounter Care Teams Welder Journeyman Relationship Specialty Start Date End Date Jos Pineda MD 175 [facility] 200 [place] [address] PCP - General Internal Medicine 12/17/17 documented as of this encounter
--- OUTSIDE RECORDS SUMMARY | 2024-03-30 10:01 | XMS_ITS | Clinical Summary ---
Author Organization 175 [facility] Address [address] [place] [address] Phone Care Team Providers Care Application Integration Engineer Name Role Phone Jos Pineda MD Primary Care Provider [phone] Allergies No known active allergies Medications senna-docusate (Senna with Docusate Sodium) 8.6-50 mg per tablet Take 1 Tablet by mouth daily for 360 days Active metoprolol succinate (TOPROL-XL) 25 mg 24 hr tablet Take 1 tablet (25 mg total) by mouth 1 (one) time each day. 06/23/19 24 Active pen needle, diabetic (BD Ultra-Fine Short Pen Needle) 31 gauge x 5/16 needle USE WITH INSULIN PEN ONCE DAILY. 06/03/19 24 Active lisinopriL (PRINIVIL,ZESTRIL ) 2.5 mg tablet Take 1 tablet (2.5 mg total) by mouth 1 (one) time each day. 09/24/19 23 Active furosemide (LASIX) 20 mg tablet Take 1 tablet (20 mg total) by mouth 1 (one) time each day. 05/19/19 24 Active naproxen sodium (ANAPROX) 220 mg tablet Take 1 Tablet by mouth 2 times daily (with meals). Active tamsulosin (FLOMAX) 0.4 mg 24 hr capsule Take 1 Capsule by mouth daily. Take 30 mins after same meal every day. Active finasteride (PROSCAR) 5 mg tablet Take 1 tablet (5 mg total) by mouth 1 (one) time each day. Active gabapentin (NEURONTIN) 100 mg capsule Take 100 mg by mouth daily. Per [facility] report Active divalproex (DEPAKOTE) [address] tablet Take 500 mg by mouth 2 times daily. 500 mg in AM and 1000mg in PM Active OLANZapine (ZyPREXA) 10 mg tablet Take 10 mg by mouth at bedtime. Per [facility] report Active ibuprofen (ADVIL,MOTRIN) 600 mg tablet Take 1 tablet by mouth every 6 hours as needed for Pain. Take with food. 08/27/19 21 Active risperiDONE (RisperDAL) 2 mg tablet Take 2 mg by mouth 2 times daily. Active alcohol swabs pads, medicated 06/08/19 09 Active diphenhydrAMINE (BENADRYL) 25 mg tablet 25 mg as needed. 07/05/19 15 Active bisacodyL (DULCOLAX) 5 mg EC tablet Take 2 tabs by mouth right before beginning bowel prep. Follow instructions given by office for timing Active polyethylene glycol (GoLYTELY) 236-22.74-6.74 -5.86 gram solution Take 240 mL by mouth once for 1 dose. Take 4L by mouth once for one dose. May substitue any PEG. Starting at 6PM the night before your procedure drink 1 8oz glasses at your own pace until rectals run clear Active metFORMIN (GLUCOPHAGE) 1,000 mg tabletIndications :Type 2 diabetes mellitus without complications (CMS/HCC) TAKE 1 TABLET BY MOUTH TWICE A DAY WITH MEALS 180 tablet 1 01/11/20 24 Active aspirin 81 mg chewable tablet TAKE 1 TABLET BY MOUTH EVERY DAY 90 tablet 1 01/11/20 24 Active insulin lispro (HumaLOG KwikPen Insulin) 100 unit/mL injection pen Use before each meal, up to 3 times a day, sliding scale 100-149: 0 units 150-199: 2 units 200-249: 3 units 250-299: 4 units 300-349:5 units 350-400: 6 units Greater than 400, call pa. 02/07/20 24 Active Lantus Solostar U-100 Insulin 100 unit/mL (3 mL) injection pen INJECT 48-50 UNITS INTO THE SKIN AT BEDTIME. 48-50 U PER NIGHT 45 mL 2 02/14/20 24 Active amLODIPine (NORVASC) 5 mg tabletIndications :Essential (primary) hypertension TAKE 1 TABLET BY MOUTH EVERY DAY 90 tablet 2 02/15/20 24 Active atorvastatin (LIPITOR) 10 mg tablet Take 1 tablet (10 mg total) by mouth 1 (one) time each day. 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 It seems to be more throat that esophagus. We will send the patient for a barium swallow and set up to see ENT Atrioventricular block, complete 06/07/2020 Overview (11/22/2023): Last Assessment & Plan: Patient with a history of complete heart block. Permanent pacing in place. Interrogation shows at least 4 years of generator life left. Interrogation also shows 2 short episodes of A-fib occurring in November the longest lasting for 10 seconds nonsense. No V. tach identified which has been a previous problem Cellulitis of leg, left 06/06/2020 Edema 06/06/2020 Fall 05/23/2020 Benign prostatic hyperplasia 05/23/2019 Coronary artery disease 05/23/2019 Overview (11/22/2023): Old [place] 1995 at age 45 Last Assessment & Plan: Previous history of myocardial infarction. No residual ischemia on stress testing. History nonsustained V. tach in the past no further episodes identified on monitor. Recent episode of weakness no indication of being cardiac. GERD (gastroesophageal reflux disease) 0 Lactose intolerance 05/23/2019 Diabetes mellitus type 2, uncomplicated 05/14/19 18 Assessment & Plan (03/01/2024 10:40 AM EST): Diabetes need better control on Lantus insulin metformin and Humalog insulin A1c done recently was 8 Hyperlipidemia 05/13/2017 Overview (11/22/2023): Last Assessment & Plan: Lipid profile 5 months ago within normal limits except for slightly low HDL Hypertension 05/13/2017 Overview (11/22/2023): Last Assessment & Plan: Well controlled on present medical therapies. No changes today. Assessment & Plan (03/01/2024 10:40 AM EST): Hypertension is under control on lisinopril and amlodipine. Schizophrenia 05/13/2017 Overview (11/22/2023): [facility] admit 06/2012 Sacral wound 03/30/2017 Pulmonary nodules/lesions, multiple 09/04/2014 Dermatophytosis of nail 01/26/2013 Assessment & Plan (03/01/2024 10:40 AM EST): Orders: Ambulatory referral to Podiatry; Future Encounters Date Type Department Care Team Description 03/30/2024 Telephone Internal Medicine - [place] [address] [phone] Nohelia Melo MA Request For Order(s) ([facility] - 6CLN/) 03/27/2024 Telephone Internal Medicine [facility] [address] [address] Nohelia Melo MA Request For Order(s) ([facility] 02/27/24-04/26/24/) 03/27/2024 Telephone Internal Medicine - [place] [address] [phone] Nohelia Melo MA Request For Order(s) ([facility] - [id number]/) 03/27/2024 Telephone Internal Medicine [facility] [address] [address] Nohelia Melo MA Request For Order(s) ([facility] - LXGY) 03/02/2024 Telephone Internal Medicine [facility] [address] [address] Jos Pineda MD 03/01/2024 9:30 AM EST Office Visit Internal Medicine [address] [phone] Jos Pineda MD Type 2 diabetes mellitus without complication, with long-term current use of insulin (CMS/HCC) (Primary Dx); Primary hypertension; Dermatophytosis of nail; Smoker 02/29/[address] [phone] Kylee Rueda PA MEDICATION 02/29/2024 Telephone Internal Medicine [address] [phone] Felicia Haney MA faxed order ([facility]) 02/18/2024 Telephone [facility] [address] [place] [phone] Eliseo Morejon MD Scheduling Recall 02/17/2024 Telephone Internal Medicine [address] [phone] Nohelia Melo MA Request For Order(s) ([facility] - [id number]/) 02/07/2024 11:40 AM EST Office Visit [address] [phone] Kylee Rueda PA Type 2 diabetes mellitus without complication, with long-term current use of insulin (CMS/HCC) (Primary Dx) 02/01/2024 Telephone Internal Medicine [address] [address] Nohelia Melo MA Request For Order(s) ([facility] - ALG4/) 01/28/2024 Billing Patient Not Present Internal Medicine [address] [phone] Jos Pineda MD Type 2 diabetes mellitus with diabetic neuropathy, unspecified whether mcfp insulin use (CMS/HCC) (Primary Dx); Essential (primary) hypertension; Schizoaffective disorder, unspecified type (CMS/HCC); Gastro-esophageal reflux disease without esophagitis; 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; Paranoid schizophrenia ([facility]) 01/21/2024 Telephone Internal Medicine - [place] [address] [phone] Nohelia Melo MA Request For Order(s) ([facility] - [id number]/) 01/20/2024 Telephone Internal Medicine [address] [phone] Nohelia Melo MA Request For Order(s) ([facility] - Cert 12/29/23-02/26/24 Plan Of Care /) 01/19/2024 Telephone Internal Medicine [address] [phone] Nohelia Melo MA Request For Order(s) ([facility] - [id number]/) 01/07/2024 Telephone Gastroenterology [address] [phone] Thierry Ordonez PA Provider Call Back from Last 3 Months Immunizations Name Administration Dates Next Due Influenza, Unspecified 12/05/2020 Pfizer SARS-CoV-2 COVID-19, mRNA, LNP-S, preservative free 12/05/2020 Pneumococcal conjugate 20 va lent (Prevnar 20, PCV 20) 2mo and older 03/19/2022 Surgical History Surgery Date Site/Laterality Comments COLONOSCOPY 12/19/2001 PROCEDURE: HISTORICAL COLONOSCOPY COLONOSCOPY 06/18/2016 PROCEDURE: HISTORICAL COLONOSCOPY; COMMENT: repeat 3 years CATARACT EXTRACTION 10/2014 Bilateral PROCEDURE: HISTORICAL CATARACT REMOVAL OTHER SURGICAL HISTORY PROCEDURE: AL BIOPSY TESTIS INCISIONAL SEPARATE PROCEDURE Medical History Medical History Date Comments History of encephalopathy 04/14/2017 DX:His tory of encephalopathy History of rhabdomyolysis 04/14/2017 DX:His tory of rhabdomyolysis Hyperlipidemia 05/13/2017 DX:Hyperlipidemi a Hypertension 05/13/2017 DX:Hypertension Dermatophytosis of nail 01/26/2013 DX:Kamas tophytosis of nail S/P placement of cardiac pacemaker 05/13/2017 DX:S/P placement of cardiac pacemaker; COMMENT: Comments: 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 Schizophrenia (CMS/HCC) 05/13/2017 DX:Schiz ophrenia (HCC) Pulmonary nodules/lesions, multiple 09/04/2014 DX:Pulmonary nodules/lesions, multiple Diabetes mellitus type 2, uncomplicated (CMS/HCC) 05/13/2017 DX:Diabetes mellitus type 2, uncomplicated (HCC) Sacral wound 03/30/2017 DX:Sacral wound Coronary artery disease 05/23/2019 DX:Coron timur artery disease; COMMENT: [place] 1995 GERD (gastroesophageal reflux disease) 0 DX:GERD (gastroesophageal reflux disease) Benign prostatic hyperplasia 05/23/2019 DX: Benign prostatic hyperplasia Lactose intolerance 05/23/2019 DX:Lactose i ntolerance Tobacco abuse disorder DX:Tobacc o abuse disorder Family History Medical History Relation Name Comments Other: unkown Father Diabetes Mother Relation Name Status Comments Father Mother Social History Tobacco Use Types Packs/Day Years Used Date Smoking Tobacco: Every Day Cigarettes Smokeless Tobacco: Former Alcohol Use Standard Drinks/Week Comments No 0 (1 standard drink = 0.6 oz pur e alcohol) Sex and Gender Information Value Date Recorded Sex Assigned at Not on file Legal Sex Male 7:40 PM EST Gender Identity Not on file Sexual Orientation Not on file Obstetrics History Last Filed Vital Signs Vital Sign Reading Time Taken Comments Blood Pressure 134/80 03/01/2024 9:16 AM EST Pulse 66 03/01/2024 9:16 AM EST Temperature 36.3 ??C (97.3 ??F) 03/01/2024 9:16 AM ES T Respiratory Rate 16 02/07/2024 11:22 AM EST Oxygen Saturation 97% 03/01/2024 9:16 AM EST Inhaled Oxygen Concentration - - Weight 92.5 kg (204 lb) 03/01/2024 9:16 AM EST Height 185.4 cm (6' 1 ) 03/01/2024 9:16 AM EST Body Mass Index 26.91 03/01/2024 9:16 AM EST Plan of Treatment Upcoming Encounters Date Type Department Care Team (Late st Contact Info) Description 04/11/2024 10:00 AM EST Ancillary Procedure [facility] - [address] [facility] [address] [place] [phone] 04/27/2024 8:45 AM EDT Office Visit Orthopedic Surgery - [place] 250 [address] [facility] 250 [place] [phone] Sravan Jimenze DPM 175 [facility] 250 [place] [address] 05/05/2024 3:40 PM EDT Office Visit Endocrinology - [place] [address] [place] [address] Kylee Rueda PA [address] [place] [address] 08/30/2024 8:30 AM EDT Office Visit Internal Medicine - [place] 175 [facility] 200 [place] [phone] Jos Pineda MD 175 [facility] 200 [place] [address] Health Maintenance Due Date Last Done Comments Diabetes: Annual Foot Exam 04/24/1961 Diabetes: Annual Retina Eye Exam 04/24/1961 DTaP,Tdap,and Td Vaccines (1 - Tdap) 04/24/1970 Hepatitis A Vaccines (1 of 2 - Risk 2-dose series) 04/24/1970 Zoster Vaccines (1 of 2) 04/24/2001 RSV Immunization Patients 60+ Years Old (1 - Risk 60-74 years 1-dose series) 2011 Abdominal Aortic Aneurysm (AAA) Screen 01/24/2022 Hepatitis C Screening 01/24/2022 Social Influencers of Health Screening 01/24/2022 COVID-19 Vaccine ( season) 2023 04/04/2022, 06/10/2021, 12/05/2020, Additional history exists Influenza Vaccine (#1) 2023 , 12/05/2020, 01/15/2004, Additional history exists Diabetes: Blood Sugar Control Test (HGBA1C) 08/07/2024 02/07/2024, 09/30/2023, 09/30/2023, Additional history exists Diabetes: Annual Urine Albumin-Creatinine Ratio (uACR) 02/06/2025 02/07/2024, 09/16/2022 Diabetes: Annual GFR (Glomerular Filtration Rate) 02/06/2025 02/07/2024, 06/28/2023, 06/28/2023 Hypertension/CHF/CAD Annual BMP Blood Test 02/06/2025 02/07/2024, 06/28/2023, 06/28/2023 Depression Screening 03/01/2025 03/01/2024 Falls Risk Assessment 03/01/2025 03/01/2024 Medicare Annual Wellness Visit 03/01/2025 03/01/2024 Cholesterol Screening (Lipid Panel) 09/17/2027 09/16/2022, 08/23/2015 Colorectal Cancer Screening: Colonoscopy 10/25/2033 10/26/2023 Pneumococcal Vaccine: 50+ Years Completed 03/19/2022, 07/15/2001 HIB Vaccines Aged Out No longer eligi ble based on patient's age to complete this topic HPV Vaccines Aged Out No longer eligi ble based on patient's age to complete this topic Hepatitis B Vaccines Aged Out No long er eligible based on patient's age to complete this topic IPV Vaccines Aged Out No longer eligi ble based on patient's age to complete this topic MMR Vaccines Aged Out No longer eligi ble based on patient's age to complete this topic Meningococcal ACWY Vaccine Aged Out N o longer eligible based on patient's age to complete this topic Meningococcal B Vacine Aged Out No lo nger eligible based on patient's age to complete this topic RSV Immunization Patients Under 20 months Aged Out No longer eligible based on patient's age to complete this topic Varicella Vaccines Aged Out No longer eligible based on patient's age to complete this topic Procedures Procedure Name Priority Date/Time Associated Diagnosis Comments HEMOGLOBIN A1C Routine 02/07/2024 12:18 PM EST Type 2 diabetes mellitus without complication, with long-term current use of insulin ([facility]) BASIC METABOLIC PANEL Routine 02/07/2024 12:18 PM EST Type 2 diabetes mellitus without complication, with long-term current use of insulin ([facility]) MICROALBUMIN CREATININE URINE RATIO Routine 02/07/2024 12:18 PM EST Type 2 diabetes mellitus without complication, with long-term current use of insulin ([facility]) HM COLONOSCOPY Routine 10/26/2023 LIPID PANEL Routine 09/16/2022 from Last 3 Months or Most Recently Relevant to Health Maintenance Results * (ABNORMAL) Microalbumin creatinine urine ratio (02/07/2024 12:18 PM EST) Creatinine, Urine 41.0 mg/dL LAB CHEMISTRY METHOD 02/07/2024 3:00 PM EST [facility] Microalb, Ur 29.6(H) 0.0 - 29.0 mg/L LAB CHEMISTRY METHOD 02/07/2024 3:00 PM EST [facility] Microalb/Crea t Ratio 72(H) <30 mg/g creat LAB CHEMISTRY METHOD 02/07/2024 3:00 PM EST [facility] Urine Urine specimen obtained by clean catch procedure / Unknown Non-blood Collection / Unknown 02/07/2024 12:18 PM EST 02/07/2024 12:18 PM EST us Kylee VU LAB URINE ORDERABLES Final Resul t [facility] [address] [place] [address], * (ABNORMAL) Hemoglobin A1c (02/07/2024 12:18 PM EST) Hemoglobin A1C 8.0(H) <6.5 % LAB CHEMISTRY METHOD 02/07/2024 2:27 PM EST [facility] Mean Bld Glu Estim. 183 mg/dL LAB CHEMISTRY METHOD 02/07/2024 2:27 PM EST [facility] Blood Venous blood specimen / Unknown Venipuncture / Unknown 02/07/2024 12:18 PM EST 02/07/2024 12:18 PM EST us Kylee VU LAB BLOOD ORDERABLES Final Resul t [facility] [address] [place] [address], [place] [phone] * (ABNORMAL) Basic metabolic panel (02/07/2024 12:18 PM EST) Sodium 137 133 - 145 mmol/L LAB CHEMISTRY METHOD 02/07/2024 5:07 PM [facility] Potassium 4.3 3.5 - 5.5 mmol/L LAB CHEMISTRY METHOD 02/07/2024 5:07 PM [facility] Chloride 101 96 - 110 mmol/L LAB CHEMISTRY METHOD 02/07/2024 5:07 PM [facility] CO2 31 21 - 32 mmol/L LAB CHEMISTRY METHOD 02/07/2024 5:07 PM [facility] Anion Gap 5 3 - 11 LAB CHEMISTRY METHOD 02/07/2024 5:07 PM [facility] Glucose 208(H) 70 - 100 mg/dL LAB CHEMISTRY METHOD 02/07/2024 5:07 PM [facility] BUN 10 5 - 25 mg/dL LAB CHEMISTRY METHOD 02/07/2024 5:07 PM [facility] Creatinine 0.73 0.70 - 1.30 mg/dL LAB CHEMISTRY METHOD 02/07/2024 5:07 PM [facility] eGFR 97 >=60 mL/min/1. 73m2 LAB CHEMISTRY METHOD 02/07/2024 5:07 PM [facility] Comment:Calculation based on the??Chronic Kidney Disease Epidemiology Collaboration (CKD-EPI) equation refit??without adjustment for race. BUN/Creatinine Ratio 13.7 LAB CHEMISTRY METHOD 02/07/2024 5:07 PM [facility] Calcium 9.1 8.5 - 10.5 mg/dL LAB CHEMISTRY METHOD 02/07/2024 5:07 PM EST [facility] Blood Venous blood specimen / Unknown Venipuncture / Unknown 02/07/2024 12:18 PM EST 02/07/2024 12:18 PM EST Kylee VU LAB BLOOD ORDERABLES Final Resul t [facility] [address] [place] [address], [place] [phone] * Colonoscopy (10/26/2023) Colonoscopy no interpretation , abstracted Anatomical Region Laterality Modality Other Historical Provider HEALTH MAINTENANCE Final Result * (ABNORMAL) Lipid panel (09/16/2022) LDL/HDL Ratio 5(A) 0 - 4 Triglycerides 134 0 - 150 mg/dL Cholesterol 139 0 - 200 mg/dL HDL 28(A) >=40 mg/dL LDL Cholesterol 85 0 - 100 mg/dL Blood Venous blood specimen / Unknown Historical Provider LAB BLOOD ORDERABLES Yani l Result from Last 3 Months or Most Recently Relevant to Health Maintenance Insurance [employer] Advance Directives Documents on File Type Date Recorded Patient Er Manager Expl anation Health Care Decision (hx) 04/11/2020 AD ARMANDO DIRECTIVE Health Care Decision (hx) 04/11/2020 AD ARMANDO DIRECTIVE Health Care Decision (hx) 04/10/2020 AD ARMANDO DIRECTIVE Care Teams Application Integration Engineer Relationship Specialty Start Date End Date Jos Pineda MD [address] [address] PCP - General Internal Medicine 12/17/17
--- OUTSIDE RECORDS SUMMARY | 2024-03-30 10:01 | XMS_ITS | Encounter Summary ---
Author Organization [facility] Address [address] [place] [address] Care Team Providers Care Reinforcer Name Role Phone Jos Pineda MD Primary Care Provider [phone] Reason for Visit * Reason Onset Date Comments faxed order 02/29/2024 [facility] Encounter Details Date Type Department Care Team (Late st Contact Info) Description 02/29/2024 Telephone Internal Medicine - [place] [address] [facility] [address] [place] [address] Felicia Haney MA faxed order ([facility]) Social History Tobacco Use Types Packs/Day Years [...] as of this encounter Progress Notes * Felicia Haney MA - 03/01/2024 1:36 PM EST Faxed to [facility] [phone] * Felicia Haney MA - 02/29/2024 2:06 PM EST [facility] written order for Adult diapers. Placed in providers folder for signature. documented in this encounter Plan of Treatment Upcoming Encounters Date Type Department Care Team (Late st Contact Info) Description 04/11/2024 10:00 AM EST Ancillary Procedure [facility] - [facility] [address] [facility] [address] [place] [address] 04/27/2024 8:45 AM EDT Office Visit Orthopedic Surgery - [place] 250 [facility] [address] [place] [address] Sravan Jimenez DPElisha 175 [facility] [address] [place] [address] 05/05/2024 3:40 PM EDT Office Visit Endocrinology [facility] [address] [place] [address] Kylee Rueda PA [address] [place] [address] 08/30/2024 8:30 AM EDT Office Visit Internal Medicine - [place] 175 [facility] [address] [place] [address] Jos Pineda MD 175 [facility] 200 [place] [address] documented as of this encounter Visit Diagnoses Not on filedocumented in this encounter Care Teams Reinforcer Relationship Specialty Start Date End Date Jos Pineda MD 175 [facility] 200 [place] [address] PCP - General Internal Medicine 12/17/17 documented as of this encounter
== END 2024-03-30 09:32 | disposition home or self-care (01) ==
LOC: HO.US 09:31
PROVIDERS: PCP Internal Medicine; Visit Provider Urology
DX: R39.9 Unspecified symptoms and signs involving the genitourinary system (principal)
CPT/HCPCS: 76770

== ENCOUNTER → 2024-03-30 09:33 | Outpatient (BNV) | payer OTHER, SELFPAY | PROVIDERS: PCP Internal Medicine; Visit Provider Radiology Vascular & Interventional Radiology | DX: R39.9 Unspecified symptoms and signs involving the genitourinary system (principal) | CPT/HCPCS: 76770 ==

== ENCOUNTER 2024-04-13 15:53 | Outpatient (AMB) | payer OTHER, SELFPAY ==
--- NOTE | 2024-04-13 16:23 | MHC.OFFVIS ---
Intake Visit Reasons: 6w/US/PSA(set) Intake Note: Patient is present for 6w US/ PSA f/u Urology Meds:finasteride Antibiotic Allergies: no Blood Thinners: ASA Scheduling Coordinator Required: No Accompanied by: Self / Same As Patient Allergies No Known Allergies Allergy (Verified 04/13/24 16:32) HPI Comments Details: 04/13/24--Bakari is a 73-year-old male presenting for the follow-up of urinary system evaluations. An ultrasound has identified left kidney hydronephrosis, hydroureter and bladder wall thickening, suggestive of potential complication from Benign Prostatic Hyperplasia (BPH). His treatment history includes Finasteride, he states he stopped the tamsulosin because it caused him diarrhea. A PSA blood test showed normal results, 0.41 ng/mL. Today- hematuria on urinalysis, discussed further diagnostic plans including a CT urogram. Urinary Symptoms Review - Hematuria has been noted. Results - Labs: PSA level at 0.41 on March 07, 2024 - Imaging: Ultrasound results indicating hydronephrosis in the left kidney and thickening of the bladder wall. 02/24/24--Koko is a 73 year old male who is here for testicular pain and scrotal swelling. He states he had colonscopy, and then about 2-3 days later, there was swelling in the testicle he states he received a cream which improved the swelling and now his symptoms are resolved. He states it ibanez sometimes when he urinates. He wears pull ups. Exam--bilateral testicles, no swelling, nontender Review of Systems Const All systems reviewed & are unremarkable except as noted in HPI and below Reports no additional complaints Eyes Reports no additional complaints ENT Reports no additional complaints Card Reports no additional complaints Resp Reports no additional complaints GI Reports no additional complaints Reports as per HPI Musc Reports no additional complaints Skin/Breast Reports system reviewed and no additional complaints, except as documented Neuro Reports no additional complaints Psych Reports no additional complaints Endo Reports no additional complaints Vivek/Lymph Reports no additional complaints Aller/Immun Reports no additional complaints Results AMB Urinalysis, Automated UA Leukoctes 500 Ezra/uL Last Edit by Cari Wei MA on 04/13/24 16:34 UA Nitrite Negative Last Edit by Cari Wei MA on 04/13/24 16:34 UA Urobilinogen 0.2 mg/dL Last Edit by Cari Wei MA on 04/13/24 16:34 UA Protein 15 mg/dL Last Edit by Cari Wei MA on 04/13/24 16:34 UA pH 6.0 Last Edit by Cari Wei MA on 04/13/24 16:34 UA Blood 25 Demetrius/uL Last Edit by Cari Wei MA on 04/13/24 16:34 UA Specific [place] 1.015 Last Edit by Cari Wei MA on 04/13/24 16:34 UA Ketone Negative Last Edit by Cari Wei MA on 04/13/24 16:34 UA Bilirubin 0 mg/dL Last Edit by Cari Wei MA on 04/13/24 16:34 UA Glucose 0 mg/dL Last Edit by Cari Wei MA on 04/13/24 16:34 Results Reviewed Results Reviewed: Laboratory Last Values Urine pH (Auto) 6.0 04/13/24 16:31 Specific [place] (Auto) 1.015 04/13/24 16:31 Urine Protein (Auto) 15 mg/dL 04/13/24 16:31 Glucose (UA)(Auto) 0 mg/dL 04/13/24 16:31 Urine Ketones (Auto) Negative 04/13/24 16:31 Urine Blood (Auto) 25 Demetrius/uL 04/13/24 16:31 Urine Nitrite (Auto) Negative 04/13/24 16:31 Urine Bilirubin (Auto) 0 mg/dL 04/13/24 16:31 Urine Urobilinogen (Auto) 0.2 mg/dL 04/13/24 16:31 Leukocyte Esterase (Auto) 500 Ezra/uL 04/13/24 16:31 Date of Service: 03/30/24 CLINICAL HISTORY: R39.9 - UTI SYMPTOMS US Renal Comparison: None Findings: Right kidney normal size and echotexture, 13 cm length. Multiple benign cysts are noted. Left kidney normal size and echotexture, 11.7 cm length. Left-sided hydronephrosis and hydroureter. Normal color Doppler. The bladder is thick-walled, trabeculated and exhibits multiple diverticulum. Prevoid volume 400 mL. Postvoid volume 261 mL. Floating debris is present within the bladder. Bilateral ureteral jets are visualized. The prostate volume is 46 mL. IMPRESSION: Thick-walled trabeculated bladder with multiple diverticulum and significant postvoid residual. Left-sided hydronephrosis and hydroureter. Assessment & Plan Assessment & Plan (1) BPH loc w urin obs/LUTS: Code(s): N40.1 - Benign prostatic hyperplasia with lower urinary tract symptoms Category: Medical (2) Hematuria: Code(s): R31.9 - Hematuria, unspecified Category: Medical (3) Bladder wall thickening: Code(s): N32.89 - Other specified disorders of bladder Category: Medical (4) Hydronephrosis, left: Code(s): N13.30 - Unspecified hydronephrosis Category: Medical (5) Hydroureter, left: Code(s): N13.4 - Hydroureter Category: Medical Plan Discussion Notes During the visit, I discussed the ultrasound findings and the associated kidney and bladder concerns with the patient. We have planned further diagnostic imaging including a CT urogram. I explained the necessity of blood work prior to this imaging to ensure renal function is uncompromised. A cystoscopy was also discussed, including the process and goal of directly observing the bladder. I assured him of its safety, and that numbing jelly will minimize discomfort. Consent for these evaluations was obtained after discussing the risks and benefits. The patient is set for follow-up in roughly six weeks to reassess and proceed with the results. Plan The immediate plan involves obtaining a CT urogram to assess any underlying renal pathology causing the observed kidney swelling. Concurrently, a cystoscopy is scheduled to directly evaluate any internal bladder changes. Necessary blood work for kidney function to precede the CT scan is ordered. Continuation of Finasteride for managing Bladder Prostate Hypertrophy is advised, while avoiding previous intolerant medication. Follow-up in six weeks will coordinate with the test outcomes. Orders: Orders AMB Urinalysis Automated Today Z13.9 - Encounter for screening, unspecified Urine Cytology Today R30.0 - Dysuria CT urogram Today N13.30 - Unspecified hydronephrosis, N13.4 - Hydroureter, R31.9 - Hematuria, unspecified Urine Culture Today R30.0 - Dysuria Creatinine Today R31.9 - Hematuria, unspecified Blood Urea Nitrogen Today R31.9 - Hematuria, unspecified Patient Instructions: Patient Instructions - Undergo blood work for kidney function next week. - A CT urogram will be scheduled; await a call from Radiology for details. - Follow-up appointment in six weeks to review imaging results. - Continue Finasteride 5 mg daily. - Report any new or worsening symptoms immediately. - Avoid previously intolerant medications. The patient had an opportunity to ask questions regarding treatment plan. The patient expressed understanding and agreement with the above treatment plan. The patient is aware they should contact our office by phone for worsening of their current condition or the appearance of new symptoms. Compliance is encouraged with any medications and followup testing that is ordered. It is a privilege to be allowed the opportunity to participate in the urologic care of your patient. If you have any questions or concerns regarding treatment for the above conditions please do not hesitate to contact me. The office telephone contact is [phone]. This note is constructed in part using voice recognition software. While every effort has been made to ensure accuracy collar fuser errors may have been included. Yours sincerely, Sonia Rojas MD Scribe Plan - Not visible on output: Patient was informed and verbally consented to the use of an ambient scribe for clinic note documentation during this visit. Coding Level of Care Code Est Pt Level 4 (34313) Diagnoses BPH loc w urin obs/LUTS N40.1 Hematuria R31.9 Bladder wall thickening N32.89 Hydronephrosis, left N13.30 Hydroureter, left N13.4
--- OUTSIDE RECORDS SUMMARY | 2024-04-13 19:08 | XMS_ITS | Encounter Summary ---
Author Organization [facility] Address [address] [place] [address] Care Team Providers Care Home Health Clinician Name Role Phone Jos Pineda MD Primary Care Provider [phone] Reason for Visit * Other Medical (Routine) - Authorized Specialty Diagnoses / Procedures Referred By Rasheeda silverio Referred To Contact Cardiology Diagnoses Encounter for adjustment or management of cardiac device [per device clinic, 1yr.]; 10/06/23 device chk,sched w pt, appt ltr gvn -emilys Procedures CARDIAC DEVICE CHECK - IN CLINIC DEVICE CHECK - IN CLINIC Jos Pineda MD [address] [place] [address] Phone: tel: fax: [facility] - [address] [place] [address] Phone: tel: fax: Referral ID Status Reason Start Date Expiration Date V isits Requested Visits Authorized [id number] Authorized 09/22/2023 09/20/2024 5 5 Encounter Details Date Type Department Care Team (Latest Contact Info) Description 04/11/2024 10:00 AM EST Ancillary Procedure [facility] Cardiology [facility] [address] [place] [phone] Encounter for adjustment or management of cardiac device Social History Tobacco Use Types Packs/Day Years [...] on file documented as of this encounter Plan of Treatment Upcoming Encounters Date Type Department Care Team (Late st Contact Info) Description 04/27/2024 8:45 AM EDT Office Visit Orthopedic Surgery - [place] [address] [facility] [address] [place] [address] Sravan Jimenez, DPElisha 175 [facility] [address] [place] [address] 05/05/2024 3:40 PM EDT Office Visit [place]ocrinology [facility] [address] [place] [address] Kylee Rueda PA [address] [place] [address] 08/30/2024 8:30 AM EDT Office Visit Internal Medicine - [place] 175 [facility] [address] [place] [address] Jos Pineda MD 175 [facility] 200 [place] [address] 10/11/2024 10:30 AM EDT Ancillary Procedure [facility] - [facility] [address] [facility] [address] [place] [address] documented as of this encounter Procedures Procedure Name Priority Date/Time Associated Diagnosis Comments CARDIAC DEVICE CHECK- IN CLINIC- MURJ Routine 04/11/2024 9:50 AM EST Encounter for adjustment or management of cardiac device documented in this encounter Results * CARDIAC DEVICE CHECK- IN CLINIC- MURJ (04/11/2024 9:50 AM EST) Date Time Interrogation Session [id number] CV DEVICE CHECK Implantable Pulse Generator [employer] CV DEVICE CHECK Implantable Pulse Generator Type IPG CV DEVICE CHECK Implantable Pulse Generator Model Assurity MRI 2272 CV DEVICE CHECK Implantable Pulse Generator Serial Number [id number] CV DEVICE CHECK Implantable Pulse Generator Implant Date [id number] CV DEVICE CHECK Battery Voltage 2.950 CV D EVICE CHECK Battery Status Middle of Service CV DEVICE CHECK Ananda Statistic RA Percent Paced 23.00 CV DEVICE CHECK Ananda Statistic RV Percent Paced 99.86 CV DEVICE CHECK Atrial Tachy Statistic AT/AF [place] Percent 1.00 CV DEVICE CHECK Lead Channel Sensing Intrinsic Amplitude 4.500 CV DEVICE CHECK Lead Channel Setting Sensing Sensitivity 0.50 CV DEVICE CHECK Lead Channel Impedance Value 440 CV DEVICE CHECK Lead Channel Pacing Threshold Amplitude 0.750 CV DEVICE CHECK Lead Channel Pacing Threshold Pulse Width 0.5 CV DEVICE CHECK Lead Channel RA Pacing Threshold Date 2024-04-11 CV DEVICE CHECK Lead Channel Setting Pacing Amplitude 1.750 CV DEVICE CHECK Lead Channel Setting Pacing Pulse Width 0.5 CV DEVICE CHECK Lead Channel Sensing Intrinsic Amplitude 9.700 CV DEVICE CHECK Lead Channel Setting Sensing Sensitivity 2.00 CV DEVICE CHECK Lead Channel Impedance Value 460 CV DEVICE CHECK Lead Channel Pacing Threshold Amplitude 0.500 CV DEVICE CHECK Lead Channel Pacing Threshold Pulse Width 0.5 CV DEVICE CHECK Lead Channel RV Pacing Threshold Date 2024-04-11 CV DEVICE CHECK Lead Channel Setting Pacing Amplitude 0.750 CV DEVICE CHECK Lead Channel Setting Pacing Pulse Width 0.5 CV DEVICE CHECK Ananda Setting Mode (NBG Code) DDD CV DEVICE CHECK Ananda Setting Lower Rate Limit 60 CV DEVICE CHECK Ananda Setting AT Mode Switch Rate 180 CV DEVICE CHECK Ananda Setting Maximum Tracking Rate 120 CV DEVICE CHECK Ananda Setting Maximum Sensor Rate 120 CV DEVICE CHECK Ananda Setting PAV Delay 180 CV DEVICE CHECK Ananda Setting ARI Delay 150 CV DEVICE CHECK Date of Service 2024-10-04 CV DEVICE CHECK Anatomical Region Laterality Modality Device Interroga tion 04/11/2024 Impressions 04/12/2024 8:46 PM EST Normal In-Office: No Events * Normal Device Function * Alerts or events: No sustained events noted * Battery: MOS, 3.10 yrs * Sensing, impedance and thresholds reviewed and tested * Presenting Rhythm: - CONCRETE POURER 60 - 80's * Underlying Rhythm: VS 40's * Heart Rate Histograms reviewed * Pacing and Detection Parameters were evaluated Narrative Procedure Note Rosario Damico MD - 04/12/2024 IMPRESSION: Normal In-Office: No Events * Normal Device Function * Alerts or events: No sustained events noted * Battery: MOS, 3.10 yrs * Sensing, impedance and thresholds reviewed and tested * Presenting Rhythm: - CONCRETE POURER 60 - 80's * Underlying Rhythm: VS 40's * Heart Rate Histograms reviewed * Pacing and Detection Parameters were evaluated us Order Referral Cardiovascular CV IMPLANTABLE CAR DIAC DEVICE PROCEDURES Final Result documented in this encounter Visit Diagnoses Diagnosis Encounter for adjustment or management of cardiac device Encounter for adjustment or management of cardiac device documented in this encounter Additional Health Concerns Assessment Noted Time PHQ-9 Depression Total Score: 2 03/01/19 9:22 AM EST A fall risk assessment has been complete d for the patient 03/01/2024 9:19 AM EST documented as of this encounter Care Teams Home Health Clinician Relationship Specialty Start Date End Date Jos Pinead MD 175 [facility] 200 [place] [address] PCP - General Internal Medicine 12/17/17 documented as of this encounter
--- OUTSIDE RECORDS SUMMARY | 2024-04-13 19:09 | XMS_ITS | Encounter Summary ---
Author Organization [facility] Address [address] [place] [address] Care Team Providers Care Spooling Operator Name Role Phone Jos Pineda MD Primary Care Provider [phone] Reason for Visit * Reason Onset Date Comments Request For Order(s) 04/12/2024 [facility] Care - S5T3 Encounter Details Date Type Department Care Team (Late Contact Info) Description 04/12/2024 Telephone Internal Medicine - [place] [address] [facility] [address] [place] [address] Nohelia Melo MA Request For Order(s) ([facility] Care - S5T3) Social History Tobacco Use Types Packs/Day Years [...] Progress Notes * Nohelia Melo MA - 04/12/2024 7:30 AM EST [facility] - S5T3 Please sign & fax [phone] documented in this encounter Plan of Treatment Upcoming Encounters Date Type Department Care Team (Late Contact Info) Description 04/27/2024 8:45 AM EDT Office Visit Orthopedic Surgery - [place] [address] [facility] [address] [place] [phone] Sravan Jimenez, DPM 175 [facility] [address] [place] [address] 05/05/2024 3:40 PM EDT Office Visit Endocrinology - [place] [address] [place] [address] Kylee Rueda PA [address] [place] [address] 08/30/2024 8:30 AM EDT Office Visit Internal Medicine - [place] [address] [facility] [address] [place] [phone] Jos Pineda MD [address] [address] 10/11/2024 10:30 AM EDT Ancillary Procedure [facility] - [facility] [address] [facility] [address] [place] [address] documented as of this encounter Visit Diagnoses Not on filedocumented in this encounter Additional Health Concerns Assessment Noted Time PHQ-9 Depression Total Score: 2 03/01/19 25 9:22 AM EST A fall risk assessment has been complete d for the patient 03/01/2024 9:19 AM EST documented as of this encounter Care Teams Spooling Operator Relationship Specialty Start Date End Date Jos Pineda MD 175 [facility] [address] [place] [address] PCP - General Internal Medicine 12/17/17 documented as of this encounter
--- OUTSIDE RECORDS SUMMARY | 2024-04-13 19:09 | XMS_ITS | Encounter Summary ---
Author Organization [facility] Address [address] [place] [address] Care Team Providers Care Health Information Assistant Name Role Phone Jos Pineda MD Primary Care Provider [phone] Encounter Details Date Type Department Care Team (Late Contact Info) Description 03/02/2024 Telephone Internal Medicine - [place] [address] [facility] [address] [place] [phone] Jos Pineda MD [address] [facility] [address] [place] [address] Social History Tobacco Use Types Packs/Day Years [...] AM EDT Office Visit Orthopedic Surgery - [place] [address] [facility] [address] [place] [phone] Sravan Jimenez, DPM 175 [facility] 250 [place] [address] 05/05/2024 3:40 PM EDT Office Visit Endocrinology - [place] [address] [place] [address] Kylee Rueda PA [address] [place] [address] 08/30/2024 8:30 AM EDT Office Visit Internal Medicine - [place] 175 [facility] 200 [place] [address] Jos Pineda MD [address] [address] 10/11/2024 10:30 AM EDT Ancillary Procedure [facility] - [facility] [address] [facility] [address] [place] [address] documented as of this encounter Visit Diagnoses Not on filedocumented in this encounter Additional Health Concerns Assessment Noted Time PHQ-9 Depression Total Score: 2 03/01/19 9:22 AM EST A fall risk assessment has been complete d for the patient 03/01/2024 9:19 AM EST documented as of this encounter Care Teams Health Information Assistant Relationship Specialty Start Date End Date Jos Pineda MD 175 [facility] 200 [place] [address] PCP - General Internal Medicine 12/17/17 documented as of this encounter
--- OUTSIDE RECORDS SUMMARY | 2024-04-13 19:09 | XMS_ITS | Clinical Summary ---
Author Organization 175 [facility] Address [address] [place] [address] Phone Care Team Providers Care Foreign Exchange Clerk Name Role Phone Jos Pineda MD Primary Care Provider [phone] Allergies No known active allergies Medications senna-docusate (Senna with Docusate Sodium) 8.6-50 mg per tablet Take 1 Tablet by mouth daily for 360 days Active pen needle, diabetic (BD Ultra-Fine Short Pen Needle) 31 gauge x 5/16 needle USE WITH INSULIN PEN ONCE DAILY. 024 Active lisinopriL (PRINIVIL,ZESTRI L) 2.5 mg tablet Take 1 tablet (2.5 mg total) by mouth 1 (one) time each day. 023 Active furosemide (LASIX) 20 mg tablet Take 1 tablet (20 mg total) by mouth 1 (one) time each day. 024 Active naproxen sodium (ANAPROX) 220 mg tablet [...] as needed for Pain. Take with food. Active risperiDONE (RisperDAL) 2 mg tablet Take 2 mg by mouth 2 times daily. Active alcohol swabs pads, medicated Active diphenhydrAMINE (BENADRYL) 25 mg tablet 25 mg as needed. Active bisacodyL (DULCOLAX) 5 mg EC tablet [...] run clear Active metFORMIN (GLUCOPHAGE) 1,000 mg tabletIndication s:Type 2 diabetes mellitus without complications (CMS/HCC) TAKE 1 TABLET BY MOUTH TWICE A DAY WITH MEALS 180 tablet 1 Active aspirin 81 mg chewable tablet TAKE 1 TABLET BY MOUTH EVERY DAY 90 tablet 1 Active insulin lispro (HumaLOG KwikPen Insulin) 100 unit/mL injection pen Use before each meal, up to 3 times a day, sliding scale 100-149: 0 units 150-199: 2 units 200-249: 3 units 250-299: 4 units 300-349:5 units 350-400: 6 units Greater than 400, call me. Active Lantus Solostar U-100 Insulin 100 unit/mL (3 mL) injection pen INJECT 48-50 UNITS INTO THE SKIN AT BEDTIME. 48-50 U PER NIGHT 45 mL 2 Active amLODIPine (NORVASC) 5 mg tabletIndication s:Essential (primary) hypertension TAKE 1 TABLET BY MOUTH EVERY DAY 90 tablet 2 Active atorvastatin (LIPITOR) 10 mg tablet Take 1 tablet (10 mg total) by mouth 1 (one) time each day. 30 each 5 025 2024 Active metoprolol succinate (TOPROL-XL) 25 mg 24 hr tablet TAKE 1 TABLET BY MOUTH EVERY DAY 90 tablet 1 025 Active metoprolol succinate (TOPROL-XL) 25 mg 24 hr tablet Take 1 tablet (25 mg total) by mouth 1 (one) time each day. 024 2024 Discontinued Active Problems Problem Noted Date Diagnosed Date [...] Coronary artery disease 05/23/2019 Overview (11/22/2023): Old [place] 1994 at age 45 Last Assessment & [...] Encounters Date Type Department Care Team Description 04/12/2024 Telephone Internal Medicine [facility] 175 [facility] 200 [place] [phone] Nohelia Melo MA Request For Order(s) ([facility] Care - S5T3) 04/11/2024 10:00 AM EST Ancillary Procedure [facility] - [facility] [address] [facility] [address] [place] [address] Encounter for adjustment or management of cardiac device 03/30/2024 Telephone Internal Medicine [facility] 175 [facility] [address] [place] [address] Nohelia Melo MA Request For Order(s) ([facility] Care - 6CLN/) 03/27/2024 Telephone Internal Medicine - [place] 175 [facility] 200 [place] [address] Nohelia Melo MA Request For Order(s) ([facility] Cert 02/27/24-04/26/24/) 03/27/2024 Telephone Internal Medicine - [address] [address] Nohelia Melo MA Request For Order(s) ([facility] - [id number]/) 03/27/2024 Telephone Internal Medicine [address] [address] Nohelia Melo MA Request For Order(s) ([facility] - LXGY) 03/02/2024 Telephone Internal Medicine [address] [address] Jos Pineda MD 03/01/2024 9:30 AM EST Office Visit Internal Medicine [address] [phone] Jos Pineda MD Type 2 diabetes mellitus without complication, with long-term current use of insulin (CMS/HCC) (Primary Dx); Primary hypertension; Dermatophytosis of nail; Smoker 02/29/2024 Telephone Endocrinology - [address] [phone] Kylee Rueda PA MEDICATION 02/29/2024 Telephone Internal Medicine [address] [phone] Felicia Haney MA faxed order ([facility]) 02/18/2024 Telephone [facility] - [address] [place] [address] Eliseo Morejon MD Scheduling Recall 02/17/2024 Telephone Internal Medicine [address] [address] Nohelia Melo MA Request For Order(s) ([facility] - [id number]/) 02/07/2024 11:40 AM EST Office Visit Endocrinology [address] [phone] Kylee Rueda PA Type 2 diabetes mellitus without complication, with long-term current use of insulin (CMS/HCC) (Primary Dx) 02/01/2024 Telephone Internal Medicine [facility] [address] [phone] Nohelia Melo MA Request For Order(s) ([facility] - ALG4/) 01/28/2024 Billing Patient Not Present Internal Medicine [facility] [address] [phone] Jos Pineda MD Type 2 diabetes mellitus with diabetic neuropathy, unspecified whether superintendent terminal insulin use (CMS/[facility]) (Primary Dx); Essential (primary) hypertension; Schizoaffective disorder, unspecified type (CMS/[facility]); Gastro-esophageal reflux disease without esophagitis; 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; Paranoid schizophrenia ([facility]) 01/21/2024 Telephone Internal Medicine [facility] [address] [phone] Nohelia Melo MA Request For Order(s) ([facility] - [id number]/) 01/20/2024 Telephone Internal Medicine - [place] [address] [phone] Nohelia Melo MA Request For Order(s) ([facility] Care - Cert 12/29/23-02/26/24 Plan Of Care /) 01/19/2024 Telephone Internal Medicine [address] [phone] Nohelia Melo MA Request For Order(s) ([facility] - 31CJ/) from Last 3 Months Immunizations Name Administration [...] HISTORICAL CATARACT REMOVAL OTHER SURGICAL HISTORY PROCEDURE: OK BIOPSY TESTIS INCISIONAL SEPARATE PROCEDURE Medical History Medical History Date Comments History of encephalopathy 04/14/2017 DX:His tory of encephalopathy History of rhabdomyolysis 04/14/2017 DX:His tory of rhabdomyolysis Hyperlipidemia 05/13/2017 DX:Hyperlipidemi a Hypertension 05/13/2017 DX:Hypertension Dermatophytosis of nail 01/26/2013 DX:[place] tophytosis of nail S/P placement of cardiac pacemaker 05/13/2017 DX:S/P placement of cardiac pacemaker; COMMENT: Comments: 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 Schizophrenia (CMS/HCC) 05/13/2017 DX:Schiz ophrenia (HCC) Pulmonary nodules/lesions, multiple 09/04/2014 DX:Pulmonary nodules/lesions, multiple Diabetes mellitus type 2, uncomplicated (CMS/HCC) 05/13/2017 DX:Diabetes mellitus type 2, uncomplicated ([facility]) Sacral wound 03/30/2017 DX:Sacral wound Coronary artery disease 05/23/2019 DX:Coron timur artery disease; COMMENT: Old [place] 1995 GERD (gastroesophageal reflux disease) 0 DX:GERD [...] AM EDT Office Visit Orthopedic Surgery - [place] 250 175 [facility] [address] [place] [phone] Sravan Jimenez DPElisha 175 [facility] 250 [place] [address] 05/05/2024 3:40 PM EDT Office Visit Endocrinology [facility] [address] [place] [address] Kylee Rueda PA [address] [place] [address] 08/30/2024 8:30 AM EDT Office Visit Internal Medicine - [place] 175 [facility] [address] [place] [address] Jos Pineda MD 175 [facility] 200 [place] [address] 10/11/2024 10:30 AM EDT Ancillary Procedure [facility] - [facility] 154 300 [facility] 154 [place] [phone] Health Maintenance Due Date Last Done Comments [...] Influencers of Health Screening 01/24/2022 COVID-19 Vaccine (5 - 4-25 season) 2023 04/04/2022, 06/10/2021, 12/05/2020, Additional history [...] for adjustment or management of cardiac device HEMOGLOBIN A1C Routine 02/07/2024 12:18 PM EST Type 2 diabetes mellitus without complication, with long-term current use of insulin ([facility]) BASIC METABOLIC PANEL Routine 02/07/2024 12:18 PM EST Type 2 diabetes mellitus without complication, with long-term current use of insulin ([facility]) MICROALBUMIN CREATININE URINE RATIO Routine 02/07/2024 12:18 PM EST Type 2 diabetes mellitus without complication, with long-term current use of insulin ([facility]) HM COLONOSCOPY Routine 10/26/2023 LIPID PANEL Routine 09/16/2022 from Last 3 Months or Most Recently Relevant to Health Maintenance Results * CARDIAC DEVICE CHECK- [facility] (04/11/2024 9:50 AM EST) Date Time Interrogation Session [id number] CV DEVICE CHECK Implantable Pulse Generator Chemistry Quality Control Analyst [facility] CV DEVICE CHECK Implantable Pulse Generator Type IPG CV DEVICE CHECK Implantable Pulse Generator Model Assurity MRI 2272 CV DEVICE CHECK Implantable Pulse Generator Serial Number [id number] CV DEVICE CHECK Implantable Pulse Generator Implant Date [id number] CV DEVICE CHECK Battery Voltage 2.950 CV D EVICE CHECK Battery Status Middle of Service CV DEVICE CHECK Ananda Statistic RA Percent Paced 23.00 CV DEVICE CHECK Ananda Statistic RV Percent Paced 99.86 CV DEVICE CHECK Atrial Tachy Statistic AT/AF Only Percent 1.00 CV DEVICE CHECK Lead Channel [...] reviewed and tested * Presenting Rhythm: - DIESEL ENGINE TESTER 60 - 80's * Underlying Rhythm: VS 40's * Heart Rate Histograms reviewed * Pacing and Detection Parameters were evaluated Narrative Procedure Note Rosario Damico MD - 04/12/2024 IMPRESSION: Normal In-Office: No Events * Normal Device Function * Alerts or events: No sustained events noted * Battery: MOS, 3.10 yrs * Sensing, impedance and thresholds reviewed and tested * Presenting Rhythm: - DIESEL ENGINE TESTER 60 - 80's * Underlying Rhythm: VS 40's * Heart Rate Histograms reviewed * Pacing and Detection Parameters were evaluated us Order Referral Cardiovascular CV IMPLANTABLE CAR DIAC DEVICE PROCEDURES Final Result * (ABNORMAL) Microalbumin creatinine urine ratio (02/07/2024 12:18 PM EST) Creatinine, Urine 41.0 mg/dL LAB CHEMISTRY METHOD 02/07/2024 3:00 PM EST [facility] Microalb, Ur 29.6(H) 0.0 - 29.0 mg/L LAB CHEMISTRY METHOD 02/07/2024 3:00 PM EST [facility] Microalb/Crea t Ratio 72(H) <30 mg/g creat LAB CHEMISTRY METHOD 02/07/2024 3:00 PM EST [facility] Urine Urine specimen obtained by clean catch procedure / Unknown Non-blood Collection / Unknown 02/07/2024 12:18 PM EST 02/07/2024 12:18 PM EST Kylee VU LAB URINE ORDERABLES Final Resul t Performing Organization Address City/[facility]/ZIP Co de Phone Number [facility] [address] [place] [address], [place] [phone] * (ABNORMAL) Hemoglobin A1c (02/07/2024 12:18 PM EST) Hemoglobin A1C 8.0(H) <6.5 % LAB CHEMISTRY METHOD 02/07/2024 2:27 PM [facility] Mean Bld Glu Estim. 183 mg/dL LAB CHEMISTRY METHOD 02/07/2024 2:27 PM [facility] Blood Venous blood specimen / Unknown Venipuncture / Unknown 02/07/2024 12:18 PM EST 02/07/2024 12:18 PM EST Kylee VU LAB BLOOD ORDERABLES Final Resul t [facility] [address] [place] [address], [place] [phone] * (ABNORMAL) Basic metabolic panel (02/07/2024 12:18 PM EST) Sodium 137 133 - 145 mmol/L LAB CHEMISTRY METHOD 02/07/2024 5:07 PM [facility] Potassium 4.3 3.5 - 5.5 mmol/L LAB CHEMISTRY METHOD 02/07/2024 5:07 PM [facility] Chloride 101 96 - 110 mmol/L LAB CHEMISTRY METHOD 02/07/2024 5:07 PM [facility] CO2 31 21 - 32 mmol/L LAB CHEMISTRY METHOD 02/07/2024 5:07 PM [facility] Anion Gap 5 3 - 11 LAB CHEMISTRY METHOD 02/07/2024 5:07 PM [facility] Glucose 208(H) 70 - 100 mg/dL LAB CHEMISTRY METHOD 02/07/2024 5:07 PM [facility] BUN 10 5 - 25 mg/dL LAB CHEMISTRY METHOD 02/07/2024 5:07 PM [facility] Creatinine 0.73 0.70 - 1.30 mg/dL LAB CHEMISTRY METHOD 02/07/2024 5:07 PM [facility] eGFR 97 >=60 mL/min/1. 73m2 LAB CHEMISTRY METHOD 02/07/2024 5:07 PM [facility] Comment:Calculation based on the??Chronic Kidney Disease Epidemiology Collaboration (CKD-EPI) equation refit??without adjustment for race. BUN/Creatinine Ratio 13.7 LAB CHEMISTRY METHOD 02/07/2024 5:07 PM [facility] Calcium 9.1 8.5 - 10.5 mg/dL LAB CHEMISTRY METHOD 02/07/2024 5:07 PM [facility] Blood Venous blood specimen / Unknown Venipuncture / Unknown 02/07/2024 12:18 PM EST 02/07/2024 12:18 PM EST us Kylee VU LAB BLOOD ORDERABLES Final Resul t [facility] [address] [place] [address], [place] [phone] * Colonoscopy (10/26/2023) Colonoscopy no interpretation , abstracted Anatomical Region Laterality Modality Other us Historical Provider HEALTH MAINTENANCE Final Result * (ABNORMAL) Lipid panel (09/16/2022) LDL/HDL Ratio 5(A) 0 - 4 Triglycerides 134 0 - 150 mg/dL Cholesterol 139 0 - 200 mg/dL HDL 28(A) >=40 mg/dL LDL Cholesterol 85 0 - 100 mg/dL Blood Venous blood specimen / Unknown us Historical Provider LAB BLOOD ORDERABLES Yani l Result from Last 3 Months or Most Recently Relevant to Health Maintenance Insurance [employer] Advance Directives Documents on File Type Date Recorded 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
--- OUTSIDE RECORDS SUMMARY | 2024-04-13 19:09 | XMS_ITS | Encounter Summary ---
Author Organization [facility] Address [address] [place] [address] Care Team Providers Care Interior Assemblies Installer Name Role Phone Jos Pineda MD Primary Care Provider [phone] Reason for Visit * Reason Onset Date Comments Request For Order(s) 03/27/2024 [facility] - L3F7 Encounter Details Date Type Department Care Team (Late st Contact Info) Description 03/27/2024 Telephone Internal Medicine - [place] [address] [place] [address] Nohelia Melo MA Request For Order(s) ([facility] - L3F7/) Social History Tobacco Use Types [...] EST Scanned into chart and faxed to [facility] [phone] * Nohelia Melo MA - 03/27/2024 8:08 AM EST [facility] - L3F7 Please sign & fax [phone] documented in this encounter Plan of Treatment Upcoming Encounters Date Type Department Care Team (Late st Contact Info) Description 04/27/2024 8:45 AM EDT Office Visit Orthopedic Surgery - [place] 250 175 [facility] 250 [place] [address] Sravan Jimenez DPElisha 175 [facility] 250 [place] [address] 05/05/2024 3:40 PM EDT Office Visit Endocrinology - [place] [address] [place] [address] Kylee Rueda PA [address] [place] [address] 08/30/2024 8:30 AM EDT Office Visit Internal Medicine - [place] [address] [address] Jos Pineda MD [address] [address] 10/11/2024 10:30 AM EDT Ancillary Procedure [facility] - [facility] 154 300 [facility] 154 [place] [address] documented as of this encounter Visit Diagnoses Not on filedocumented in this encounter Additional Health Concerns Assessment Noted Time PHQ-9 Depression Total Score: 2 03/01/19 25 9:22 AM EST A fall risk assessment has been complete d for the patient 03/01/2024 9:19 AM EST documented as of this encounter Care Teams Interior Assemblies Installer Relationship Specialty Start Date End Date Jos Pineda MD 175 [facility] 200 [place] [address] PCP - General Internal Medicine 12/17/17 documented as of this encounter
--- OUTSIDE RECORDS SUMMARY | 2024-04-13 19:09 | XMS_ITS | Encounter Summary ---
Author Organization [facility] Address [address] [place] [address] Care Team Providers Care Coil Winder Name Role Phone Jos Pineda MD Primary Care Provider [phone] Reason for Visit * Reason Onset Date Comments Scheduling Recall 02/18/2024 Encounter Details Date Type Department Care Team (Late st Contact Info) Description 02/18/[address] [place] [address] Eliseo Morejon MD [address] [place] [address] [address] [place] [address] Scheduling Recall Social History Tobacco Use Types [...] AM EDT Office Visit Orthopedic Surgery - [place] 250 175 [facility] [address] [place] [phone] Sravan Jimenez DPElisha 175 [facility] 250 [place] [address] 05/05/2024 3:40 PM EDT Office Visit Endocrinology - [place] [address] [place] [address] Kylee Rueda PA [address] [place] [address] 08/30/2024 8:30 AM EDT Office Visit Internal Medicine - [place] 175 [facility] 200 [place] [phone] Jos Pineda MD 175 [facility] [address] [place] [address] 10/11/2024 10:30 AM EDT Ancillary Procedure [facility] - [facility] 154 300 [facility] [address] [place] [phone] documented as of this encounter Visit Diagnoses Not on filedocumented in this encounter Care Teams Coil Winder Relationship Specialty Start Date End Date Jos Pineda MD 175 [facility] [address] [place] [address] PCP - General Internal Medicine 12/17/17 documented as of this encounter
--- OUTSIDE RECORDS SUMMARY | 2024-04-13 19:09 | XMS_ITS | Clinical Summary ---
Author Organization [facility] Address [address] [place] [address] Care Team Providers Care Education Professional Name Role Phone Unavailable Primary Care Provider [...] injectionIndicati ons:Diabetes mellitus type 2 in nonobese ([facility]) Inject 80 Units into the skin once daily. 10 mL 6 Active liraglutide (VICTOZA) 0.6 mg/0.1 mL (18 mg/3 mL) injection penIndications:Di abetes mellitus type 2 in nonobese ([facility]) Inject 1.2 mg into the skin once [...]
--- OUTSIDE RECORDS SUMMARY | 2024-04-13 19:09 | XMS_ITS | Encounter Summary ---
Author Organization [facility] Address [address] [place] [address] Care Team Providers Care Bpm Developer Name Role Phone Jos Pineda MD Primary Care Provider [phone] Reason for Visit * Reason Onset Date Comments Request For Order(s) 03/30/2024 [facility] Care - 6CLN Encounter Details Date Type Department Care Team (Late st Contact Info) Description 03/30/2024 Telephone Internal Medicine - [place] [address] [facility] [address] Nohelia Melo MA Request For Order(s) ([facility] - 6CLN/) Social History Tobacco Use Types Packs/Day Years [...] Progress Notes * Nohelia Melo MA - 03/31/2024 8:46 AM EST Scanned into chart and faxed to [facility] [phone] * Nohelia Melo MA - 03/30/2024 9:45 AM EST [facility] - 6CLN Please sign & fax [phone] documented in this encounter Plan of Treatment Upcoming Encounters Date Type Department Care Team (Late st Contact Info) Description 04/27/2024 8:45 AM EDT Office Visit Orthopedic Surgery - [place] 250 175 [facility] 250 [place] [address] Sravan Jimenez, DPM 175 [facility] 250 [place] [address] 05/05/2024 3:40 PM EDT Office Visit Endocrinology - [place] 444 [place] [address] Kylee Rueda PA [address] [place] [address] 08/30/2024 8:30 AM EDT Office Visit Internal Medicine - [place] [address] [address] Jos Pineda MD [address] [address] 10/11/2024 10:30 AM EDT Ancillary Procedure [facility] - [facility] 154 300 [facility] 154 [place] [address] documented as of this encounter Visit Diagnoses Not on filedocumented in this encounter Additional Health Concerns Assessment Noted Time PHQ-9 Depression Total Score: 2 03/01/19 9:22 AM EST A fall risk assessment has been complete d for the patient 03/01/2024 9:19 AM EST documented as of this encounter Care Teams Bpm Developer Relationship Specialty Start Date End Date Jos Pineda MD 175 [facility] 200 [place] [address] PCP - General Internal Medicine 12/17/17 documented as of this encounter
--- OUTSIDE RECORDS SUMMARY | 2024-04-13 19:09 | XMS_ITS | Encounter Summary ---
Author Organization [facility] Address [address] [place] [address] Care Team Providers Care Scaffolding Helper Name Role Phone Jos Pineda MD Primary Care Provider [phone] Reason for Visit * Reason Onset Date Comments Request For Order(s) 03/27/2024 [facility] Care - LXGY Encounter Details Date Type Department Care Team (Late st Contact Info) Description 03/27/2024 Telephone Internal Medicine - [place] [address] [place] [address] Nohelia Melo MA Request For Order(s) ([facility] Care - LXGY) Social History Tobacco Use [...] EST Scanned into chart and faxed to [facility] [phone] * Nohelia Melo MA - 03/27/2024 7:36 AM EST [facility] Care - LXGY Please sign & fax [phone] documented in this encounter Plan of Treatment Upcoming Encounters Date Type Department Care Team (Late st Contact Info) Description 04/27/2024 8:45 AM EDT Office Visit Orthopedic Surgery - [place] 250 175 [facility] 250 [place] [address] Sravan Jimenez, DPM 175 [facility] 250 [place] [address] 05/05/2024 3:40 PM EDT Office Visit Endocrinology - [place] 444 [place] [address] Kylee Rueda PA 444 [place] [address] 08/30/2024 8:30 AM EDT Office Visit Internal Medicine - [place] 175 [facility] 200 [place] [address] Jos Pineda MD [address] [address] 10/11/2024 10:30 AM EDT Ancillary Procedure [facility] - [facility] 154 300 [facility] 154 [place] [address] documented as of this encounter Visit Diagnoses Not on filedocumented in this encounter Additional Health Concerns Assessment Noted Time PHQ-9 Depression Total Score: 2 03/01/19 25 9:22 AM EST A fall risk assessment has been complete d for the patient 03/01/2024 9:19 AM EST documented as of this encounter Care Teams Scaffolding Helper Relationship Specialty Start Date End Date Jos Pineda MD 175 [facility] 200 [place] [address] PCP - General Internal Medicine 12/17/17 documented as of this encounter
--- OUTSIDE RECORDS SUMMARY | 2024-04-13 19:09 | XMS_ITS | Encounter Summary ---
Author Organization [facility] Address [address] [place] [address] Care Team Providers Care Gamma Operator Name Role Phone Jos Pineda MD Primary Care Provider [phone] Reason for Visit * Reason Onset Date Comments Request For Order(s) 03/27/2024 [facility] Care Cert 02/27/24-04/26/24 Encounter Details Date Type Department Care Team (Late st Contact Info) Description 03/27/2024 Telephone Internal Medicine - [place] [address] [place] [address] Nohelia Melo MA Request For Order(s) ([facility] Health Care Cert 02/27/24-04/26/24/) Social History Tobacco [...] EST Scanned into chart and faxed to [facility] [phone] * Nohelia Melo MA - 03/27/2024 8:[address] [facility] Care Cert 1/12/25-04/26/24 Please sign & fax [phone] documented in this encounter Plan of Treatment Upcoming Encounters Date Type Department Care Team (Late st Contact Info) Description 04/27/2024 8:45 AM EDT Office Visit Orthopedic Surgery - [place] [address] [facility] 250 [place] [address] Sravan Jimenez, DPM [address] [address] 05/05/2024 3:40 PM EDT Office Visit Endocrinology [facility] [address] [place] [address] Kylee Rueda PA [address] [place] [address] 08/30/2024 8:30 AM EDT Office Visit Internal Medicine - [place] 175 [facility] 200 [place] [address] Jos Pineda MD 175 [facility] 200 [place] [address] 10/11/2024 10:30 AM EDT Ancillary Procedure [facility] - [facility] 154 300 [facility] 154 [place] [address] documented as of this encounter Visit Diagnoses Not on filedocumented in this encounter Additional Health Concerns Assessment Noted Time PHQ-9 Depression Total Score: 2 03/01/19 9:22 AM EST A fall risk assessment has been complete d for the patient 03/01/2024 9:19 AM EST documented as of this encounter Care Teams Gamma Operator Relationship Specialty Start Date End Date Jos Pineda MD 175 [facility] 200 [place] [address] PCP - General Internal Medicine 12/17/17 documented as of this encounter
--- OUTSIDE RECORDS SUMMARY | 2024-04-13 19:09 | XMS_ITS | Encounter Summary ---
Author Organization [facility] Address [address] [place] [address] Care Team Providers Care Toe Pounder Name Role Phone Jos Pineda MD Primary Care Provider [phone] Reason for Visit * Reason Onset Date Comments MEDICATION 02/29/2024 Encounter Details Date Type Department Care Team (Late st Contact Info) Description 02/29/2024 Telephone Endocrinology - [place] [address] [place], [place] [phone] Kylee Rueda PA 444 [place] [address] MEDICATION Social History Tobacco Use Types Packs/Day [...] [place] - 02/29/2024 2:15 PM EST Lana prieto [facility] is calling, asking provider to consider a statin at next OV for his diabetes. No upcoming OV documented in this encounter Plan of Treatment Upcoming Encounters Date Type Department Care Team (Late st Contact Info) Description 04/27/2024 8:45 AM EDT Office Visit Orthopedic Surgery - [place] 250 175 [facility] 250 [place] [address] Sravan Jimenez, DPM 175 [facility] 250 [place] [address] 05/05/2024 3:40 PM EDT Office Visit Endocrinology - [place] [address] [place] [address] Kylee Rueda PA 444 [place] [address] 08/30/2024 8:30 AM EDT Office Visit Internal Medicine - [place] 175 [facility] 200 [place] [address] Jos Pineda MD [address] [address] 10/11/2024 10:30 AM EDT Ancillary Procedure [facility] - [facility] 154 300 [facility] 154 [place] [phone] documented as of this encounter Visit Diagnoses Not on filedocumented in this encounter Care Teams Toe Pounder Relationship Specialty Start Date End Date Jos Pineda MD 175 [facility] 200 [place] [address] PCP - General Internal Medicine 12/17/17 documented as of this encounter
== END 2024-04-13 16:48 | disposition home or self-care (01) ==
LOC: HO.HUSH 15:53
PROVIDERS: PCP Internal Medicine; Visit Provider Urology
DX: N40.1 Benign prostatic hyperplasia with lower urinary tract symptoms (principal); R31.9 Hematuria, unspecified; N32.89 Other specified disorders of bladder; N13.30 Unspecified hydronephrosis; N13.4 Hydroureter; Z13.9 Encounter for screening, unspecified
CPT/HCPCS: 99214

== ENCOUNTER 2024-04-13 15:53 | Outpatient (REF) | payer OTHER, SELFPAY ==
[2024-04-13 17:26] LABS: Urine Cytology See Pathology rpt
--- OUTSIDE RECORDS SUMMARY | 2024-04-13 19:32 | XMS_ITS | Encounter Summary ---
Author Organization [facility] Address [address] [place] [address] Care Team Providers Care Song And Dance Performer Name Role Phone Jos Pineda MD Primary Care Provider [phone] Reason for Visit * Reason Onset Date Comments Request For Order(s) 03/30/2024 [facility] - 6CLN Encounter Details Date Type Department Care Team (Late st Contact Info) Description 03/30/2024 Telephone Internal Medicine - [place] [address] [place] [address] Nohelia Melo MA Request For Order(s) ([facility] - 6CLN/) Social History Tobacco Use Types [...] and faxed to [facility] [phone] * Nohelia Melo MA - 03/30/2024 9:45 AM EST [facility] Care - 6CLN Please sign & fax [phone] documented in this encounter Plan of Treatment Upcoming Encounters Date Type Department Care Team (Late st Contact Info) Description 04/27/2024 8:45 AM EDT Office Visit Orthopedic Surgery - [place] 250 175 [facility] 250 [place] [address] Sravan Jimenez, DPM 175 [facility] 250 [place] [address] 05/05/2024 3:40 PM EDT Office Visit Endocrinology - [place] 444 [place] [address] Kylee Rueda PA 444 [place] [address] 08/30/2024 8:30 AM EDT Office Visit Internal Medicine - [place] [address] [address] Jos Pineda MD [address] [address] 10/11/2024 10:30 AM EDT Ancillary Procedure [facility] - [facility] 154 300 [facility] 154 [place] [address] documented as of this encounter Visit Diagnoses Not on filedocumented in this encounter Additional Health Concerns Assessment Noted Time PHQ-9 Depression Total Score: 2 03/01/19 9:22 AM EST A fall risk assessment has been complete d for the patient 03/01/2024 9:19 AM EST documented as of this encounter Care Teams Song And Dance Performer Relationship Specialty Start Date End Date Jos Pineda MD 175 [facility] 200 [place] [address] PCP - General Internal Medicine 12/17/17 documented as of this encounter
--- OUTSIDE RECORDS SUMMARY | 2024-04-13 19:32 | XMS_ITS | Encounter Summary ---
Author Organization [facility] Address [address] [place] [address] Care Team Providers Care Glass Enamel Mixer Name Role Phone Jos Pineda MD Primary Care Provider [phone] Reason for Visit * Other Medical (Routine) - Authorized Specialty Diagnoses / Procedures Referred By Rasheeda silverio Referred To Contact Cardiology Diagnoses Encounter for adjustment or management of cardiac device [per device clinic, 1yr.]; 10/06/23 device chk,sched w pt, appt ltr gvn -emilys Procedures CARDIAC DEVICE CHECK - IN CLINIC DEVICE CHECK - IN CLINIC Jos Pineda MD [address] [place] [address] Phone: tel: fax: [facility] - [address] [place] [address] Phone: tel: fax: Referral ID Status Reason Start Date Expiration Date V isits Requested Visits Authorized [id number] Authorized 09/22/2023 09/20/2024 5 5 Encounter Details Date Type Department Care Team (Latest Contact Info) Description 04/11/2024 10:00 AM EST Ancillary Procedure [facility] Cardiology [facility] - [address] [place] [address] Encounter for adjustment or management of cardiac [...] AM EDT Office Visit Orthopedic Surgery - [place] 250 175 [facility] 250 [place] [address] Sravan Jimenez, DPElisha 175 [facility] 250 [place] [address] 05/05/2024 3:40 PM EDT Office Visit Endocrinology [facility] 444 [place] [address] Kylee Rueda PA 444 [place] [address] 08/30/2024 8:30 AM EDT Office Visit Internal Medicine - [place] 175 [facility] 200 [place] [address] Jos Pineda MD 175 [facility] 200 [place] [address] 10/11/2024 10:30 AM EDT Ancillary Procedure [facility] - [facility] 154 300 [facility] 154 [place] [address] documented as of this encounter Procedures Procedure Name Priority Date/Time Associated Diagnosis Comments CARDIAC DEVICE CHECK- IN CLINIC- MURJ Routine 04/11/2024 9:50 AM EST Encounter for adjustment or management of cardiac device documented in this encounter Results * CARDIAC DEVICE CHECK- IN CLINIC- MURJ (04/11/2024 9:50 AM EST) Date Time Interrogation Session [id number] CV DEVICE CHECK Implantable Pulse Generator Gear Keeper [employer] CV DEVICE CHECK Implantable Pulse Generator Type IPG CV DEVICE CHECK Implantable Pulse Generator Model Assurity MRI 2272 CV DEVICE CHECK Implantable Pulse Generator Serial Number [id number] CV DEVICE CHECK Implantable Pulse Generator Implant Date [id number] CV DEVICE CHECK Battery Voltage 2.950 CV D EVICE CHECK Battery Status Middle of Service CV DEVICE CHECK Ananda Statistic RA Percent Paced 23.00 CV DEVICE CHECK Ananda Statistic RV Percent Paced 99.86 CV DEVICE CHECK Atrial Tachy Statistic AT/AF [place] Percent 1.00 CV DEVICE CHECK Lead Channel [...] Maximum Sensor Rate 120 CV DEVICE CHECK [place] Setting PAV Delay 180 CV DEVICE CHECK [...] reviewed and tested * Presenting Rhythm: - LOOP SEWER 60 - 80's * Underlying Rhythm: VS 40's * Heart Rate Histograms reviewed * Pacing and Detection Parameters were evaluated Narrative Procedure Note Rosario Damico MD - 04/12/2024 IMPRESSION: Normal In-Office: No Events * Normal Device Function * Alerts or events: No sustained events noted * Battery: MOS, 3.10 yrs * Sensing, impedance and thresholds reviewed and tested * Presenting Rhythm: - LOOP SEWER 60 - 80's * Underlying Rhythm: VS [...] documented as of this encounter Care Teams Glass Enamel Mixer Relationship Specialty Start Date End Date Jos Pineda MD 175 [facility] 200 [place] [address] PCP - General Internal Medicine 12/17/17 documented as of this encounter
--- OUTSIDE RECORDS SUMMARY | 2024-04-13 19:33 | XMS_ITS | Encounter Summary ---
Author Organization [facility] Address [address] [place] [address] Care Team Providers Care Senior Information Security Analyst Name Role Phone Jos Pineda MD Primary Care Provider [phone] Reason for Visit * Reason Onset Date Comments Request For Order(s) 03/27/2024 [facility] Care - LXGY Encounter Details Date Type Department Care Team (Late st Contact Info) Description 03/27/2024 Telephone Internal Medicine - [place] [address] [place] [address] Nohelia Melo [place] Request For Order(s) ([facility] Care - LXGY) Social History Tobacco Use [...] EST Scanned into chart and faxed to [facility] [phone] * Nohelia Melo MA - 03/27/2024 7:36 AM EST [facility] Care - LXGY Please sign & fax [phone] documented in this encounter Plan of Treatment Upcoming Encounters Date Type Department Care Team (Late st Contact Info) Description 04/27/2024 8:45 AM EDT Office Visit Orthopedic Surgery - [place] 250 175 [facility] 250 [place] [address] Sravan Jimenez, DPM 175 [facility] 250 [place] [address] 05/05/2024 3:40 PM EDT Office Visit Endocrinology - [place] 444 [place] [address] Kylee Rueda PA 444 [place] [address] 08/30/2024 8:30 AM EDT Office Visit Internal Medicine - [place] 175 [facility] 200 [place] [address] Jos Pineda MD [address] [address] 10/11/2024 10:30 AM EDT Ancillary Procedure [facility] - [facility] 154 300 [facility] 154 [place] [address] documented as of this encounter Visit Diagnoses Not on filedocumented in this encounter Additional Health Concerns Assessment Noted Time PHQ-9 Depression Total Score: 2 03/01/19 25 9:22 AM EST A fall risk assessment has been complete d for the patient 03/01/2024 9:19 AM EST documented as of this encounter Care Teams Senior Information Security Analyst Relationship Specialty Start Date End Date Jos Pineda MD 175 [facility] 200 [place] [address] PCP - General Internal Medicine 12/17/17 documented as of this encounter
--- OUTSIDE RECORDS SUMMARY | 2024-04-13 19:33 | XMS_ITS | Encounter Summary ---
Author Organization [facility] Address [address] [place] [address] Care Team Providers Care City Administrator Name Role Phone Jos Pineda MD Primary Care Provider [phone] Reason for Visit * Reason Onset Date Comments MEDICATION 02/29/2024 Encounter Details Date Type Department Care Team (Late st Contact Info) Description 02/29/2024 Telephone Endocrinology - [place] [address] [place], [place] [phone] Kylee Rueda PA [address] [place] [address] MEDICATION Social History Tobacco Use Types Packs/Day [...] - 02/29/2024 2:15 PM EST Lana prieto [facility] is calling, asking provider to consider a statin at next OV for his diabetes. No upcoming OV documented in this encounter Plan of Treatment Upcoming Encounters Date Type Department Care Team (Late st Contact Info) Description 04/27/2024 8:45 AM EDT Office Visit Orthopedic Surgery - [place] 250 175 [facility] 250 [place] [address] Sravan Jimenez, DPM 175 [facility] 250 [place] [address] 05/05/2024 3:40 PM EDT Office Visit Endocrinology - [place] 444 [place] [address] Kylee Rueda PA 444 [place] [address] 08/30/2024 8:30 AM EDT Office Visit Internal Medicine - [place] 175 [facility] 200 [place] [address] Jso Pineda MD [address] [address] 10/11/2024 10:30 AM EDT Ancillary Procedure [facility] - [facility] 154 300 [facility] 154 [place] [address] documented as of this encounter Visit Diagnoses Not on filedocumented in this encounter Care Teams City Administrator Relationship Specialty Start Date End Date Jos Pineda MD 175 [facility] 200 [place] [address] PCP - General Internal Medicine 12/17/17 documented as of this encounter
--- OUTSIDE RECORDS SUMMARY | 2024-04-13 19:33 | XMS_ITS | Encounter Summary ---
Author Organization [facility] Address [address] [place] [address] Care Team Providers Care Scribing Machine Operator Name Role Phone Jos Pineda MD Primary Care Provider Reason for Visit * Reason Onset Date Comments Request For Order(s) 03/27/2024 [facility] Health Care Cert 02/27/24-04/26/24 Encounter Details Date Type Department Care Team (Late st Contact Info) Description 03/27/2024 Telephone Internal Medicine - [place] [address] [place] [address] Nohelia Melo [place] Request For Order(s) ([facility] Health Care Cert 02/27/24-04/26/24/) Social History [...] chart and faxed to [facility] [phone] * Nohelia Melo MA - 03/27/2024 8:17 AM EST [facility] Care Cert 1/12/25-04/26/24 Please sign & fax [phone] documented in this encounter Plan of Treatment Upcoming Encounters Date Type Department Care Team (Late st Contact Info) Description 04/27/2024 8:45 AM EDT Office Visit Orthopedic Surgery - [place] 250 175 [facility] 250 [place] [address] Sravan Jimenez, DPM [address] [address] 05/05/2024 3:40 PM EDT Office Visit Endocrinology [facility] 444 [place] [address] Kylee Rueda PA 444 [place] [address] 08/30/2024 8:30 AM EDT Office Visit Internal Medicine - [place] 175 [facility] 200 [place] [address] Jos Pineda MD 175 [facility] 200 [place] [address] 10/11/2024 10:30 AM EDT Ancillary Procedure [facility] - [facility] 154 300 [facility] 154 [place] [address] documented as of this encounter Visit Diagnoses Not on filedocumented in this encounter Additional Health Concerns Assessment Noted Time PHQ-9 Depression Total Score: 2 03/01/19 9:22 AM EST A fall risk assessment has been complete d for the patient 03/01/2024 9:19 AM EST documented as of this encounter Care Teams Scribing Machine Operator Relationship Specialty Start Date End Date Jos Pineda MD 175 [facility] 200 [place] [address] PCP - General Internal Medicine 12/17/17 documented as of this encounter
--- OUTSIDE RECORDS SUMMARY | 2024-04-13 19:33 | XMS_ITS | Clinical Summary ---
Author Organization [facility] Address 175 [place] [address] Phone Care Team Providers Care Tack Cutter Name Role Phone Jos Pineda MD Primary Care Provider [phone] Allergies No known active allergies Medications senna-docusate [...] Coronary artery disease 05/23/2019 Overview (11/22/2023): Old [place] 1995 at age 45 Last Assessment & [...] Care Team Description 04/12/2024 Telephone Internal Medicine [facility] 175 [facility] 200 [place] [phone] Nohelia Melo MA Request For Order(s) ([facility] Care - S5T3) 04/11/2024 10:00 AM EST Ancillary Procedure [facility] - [facility] [address] 300 [facility] 154 [place] [address] Encounter for adjustment or management of cardiac device 03/30/2024 Telephone Internal Medicine [facility] 175 [facility] 200 [place] [address] Nohelia Melo MA Request For Order(s) ([facility] Care - 6CLN/) 03/27/2024 Telephone Internal Medicine - [place] 175 [facility] 200 [place] [address] Nohelia Melo MA Request For Order(s) ([facility] Cert 02/27/24-04/26/24/) 03/27/2024 Telephone Internal Medicine - [address] [address] Nohelia Melo MA Request For Order(s) ([facility] - L3F7/) 03/27/2024 Telephone Internal Medicine [address] [address] Nohelia Melo MA Request For Order(s) ([facility] - LXGY) 03/02/2024 Telephone Internal Medicine [address] [address] Jos Pineda MD 03/01/2024 9:30 AM EST Office Visit Internal Medicine [address] [phone] Jos Pineda MD Type 2 diabetes mellitus without complication, with long-term current use of insulin (CMS/HCC) (Primary Dx); Primary hypertension; Dermatophytosis of nail; Smoker 02/29/2024 Telephone Endocrinology - [address] [phone] Kylee Rueda PA MEDICATION 02/29/2024 Telephone Internal Medicine [address] [phone] Felicia Haney MA faxed order ([facility]) 02/18/2024 Telephone [facility] - [address] [place] [address] Eliseo Morejon MD Scheduling Recall 02/17/2024 Telephone Internal Medicine [address] [address] Nohelia Melo MA Request For Order(s) ([facility] - [id number]/) 02/07/2024 11:40 AM EST Office Visit Endocrinology [address] [phone] Kylee Rueda PA Type 2 diabetes mellitus without complication, with long-term current use of insulin (CMS/HCC) (Primary Dx) 02/01/2024 Telephone Internal Medicine [facility] [address] [phone] Nohelia Melo MA Request For Order(s) ([facility] - ALG4/) 01/28/2024 Billing Patient Not Present Internal Medicine [facility] [address] [phone] Jos Pineda MD Type 2 diabetes mellitus with diabetic neuropathy, 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 ship 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 (CMS/[facility]) (Primary Dx); Essential (primary) hypertension; Schizoaffective disorder, unspecified type (CMS/[facility]); Gastro-esophageal reflux disease without esophagitis; 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; Paranoid schizophrenia ([facility]) 01/21/2024 Telephone Internal Medicine [facility] [address] [phone] Nohelia Melo MA Request For Order(s) ([facility] - [id number]/) 01/20/2024 Telephone Internal Medicine - [place] [address] [phone] Nohelia Melo MA Request For Order(s) ([facility] Care - Cert 12/29/23-02/26/24 Plan Of Care /) 01/19/2024 Telephone Internal Medicine [address] [phone] Nohelia Melo MA Request For Order(s) ([facility] - 31CJ/) from Last 3 Months Immunizations [...] HISTORICAL CATARACT REMOVAL OTHER SURGICAL HISTORY PROCEDURE: [place] BIOPSY TESTIS INCISIONAL SEPARATE PROCEDURE Medical History Medical History Date Comments History of encephalopathy 04/14/2017 DX:His tory of encephalopathy History of rhabdomyolysis 04/14/2017 DX:His tory of rhabdomyolysis Hyperlipidemia 05/13/2017 DX:Hyperlipidemi a Hypertension 05/13/2017 DX:Hypertension Dermatophytosis of nail 01/26/2013 DX:[employer] tophytosis of nail S/P placement of cardiac pacemaker 05/13/2017 DX:S/P placement of cardiac pacemaker; COMMENT: Comments: 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 Schizophrenia (CMS/HCC) 05/13/2017 DX:Schiz ophrenia (HCC) Pulmonary nodules/lesions, multiple 09/04/2014 DX:Pulmonary nodules/lesions, multiple Diabetes mellitus type 2, uncomplicated (CMS/HCC) 05/13/2017 DX:Diabetes mellitus type 2, uncomplicated ([facility]) Sacral wound 03/30/2017 DX:Sacral wound Coronary artery disease 05/23/2019 DX:Coron timur artery disease; COMMENT: Old [place] 1995 GERD (gastroesophageal reflux disease) 0 DX:GERD [...] EDT Office Visit Orthopedic Surgery - [place] 250 175 [facility] 250 [place] [phone] Sravan Jimenez DPElisha 175 [facility] 250 [place] [address] 05/05/2024 3:40 PM EDT Office Visit Endocrinology [facility] [address] [place] [address] Kylee Rueda PA [address] [place] [address] 08/30/2024 8:30 AM EDT Office Visit Internal Medicine - [place] 175 [facility] 200 [place] [address] Jos Pineda MD 175 [facility] 200 [place] [address] 10/11/2024 10:30 AM EDT Ancillary Procedure [facility] - [facility] 154 300 [facility] 154 [place] [phone] Health Maintenance Due Date Last Done Comments [...] complication, with long-term current use of insulin ([facility]) BASIC METABOLIC PANEL Routine 02/07/2024 12:18 PM EST Type 2 diabetes mellitus without complication, with long-term current use of insulin ([facility]) MICROALBUMIN CREATININE URINE RATIO Routine 02/07/2024 12:18 PM EST Type 2 diabetes mellitus without complication, with long-term current use of insulin ([facility]) HM COLONOSCOPY Routine 10/26/2023 LIPID PANEL Routine 09/16/2022 from Last 3 Months or Most Recently Relevant to Health Maintenance Results * CARDIAC DEVICE CHECK- [facility] (04/11/2024 9:50 AM EST) Date Time Interrogation Session [id number] CV DEVICE CHECK Implantable Pulse Generator [employer] CV DEVICE CHECK Implantable Pulse Generator Type IPG CV DEVICE CHECK Implantable Pulse Generator Model Assurity MRI 2272 CV DEVICE CHECK Implantable Pulse Generator Serial Number [id number] CV DEVICE CHECK Implantable Pulse Generator Implant Date [id number] CV DEVICE CHECK Battery Voltage 2.950 CV D EVICE CHECK Battery Status Middle of Service CV DEVICE CHECK Ananda Statistic RA Percent Paced 23.00 CV DEVICE CHECK Ananda Statistic RV Percent Paced 99.86 CV DEVICE CHECK Atrial Tachy Statistic AT/AF Grannis Percent 1.00 CV DEVICE CHECK Lead Channel [...] reviewed and tested * Presenting Rhythm: - SEWER PIPE LAYER 60 - 80's * Underlying Rhythm: VS 40's * Heart Rate Histograms reviewed * Pacing and Detection Parameters were evaluated Narrative Procedure Note Rosario Damico MD - 04/12/2024 IMPRESSION: Normal In-Office: No Events * Normal Device Function * Alerts or events: No sustained events noted * Battery: MOS, 3.10 yrs * Sensing, impedance and thresholds reviewed and tested * Presenting Rhythm: - SEWER PIPE LAYER 60 - 80's * Underlying Rhythm: VS 40's * Heart Rate Histograms reviewed * Pacing and Detection Parameters were evaluated us Order Referral Cardiovascular CV IMPLANTABLE CAR DIAC DEVICE PROCEDURES Final Result * (ABNORMAL) Microalbumin creatinine urine ratio (02/07/2024 12:18 PM EST) Creatinine, Urine 41.0 mg/dL LAB CHEMISTRY METHOD 02/07/2024 3:00 PM EST [facility] Microalb, Ur 29.6(H) 0.0 - 29.0 mg/L LAB CHEMISTRY METHOD 02/07/2024 3:00 PM EST [facility] Microalb/Crea t Ratio 72(H) <30 mg/g creat LAB CHEMISTRY METHOD 02/07/2024 3:00 PM EST [facility] Urine Urine specimen obtained by clean catch procedure / Unknown Non-blood Collection / Unknown 02/07/2024 12:18 PM EST 02/07/2024 12:18 PM EST Kylee VU LAB URINE ORDERABLES Final Resul t Performing Organization Address City/[facility]/ZIP Co de Phone Number [facility] [address] [place] [address], [place] [phone] * (ABNORMAL) Hemoglobin A1c (02/07/2024 12:18 PM EST) Hemoglobin A1C 8.0(H) <6.5 % LAB CHEMISTRY METHOD 02/07/2024 2:[address] [facility] Mean Bld Glu Estim. 183 mg/dL LAB CHEMISTRY METHOD 02/07/2024 2:[address] [facility] Blood Venous blood specimen / Unknown Venipuncture / Unknown 02/07/2024 12:18 PM EST 02/07/2024 12:18 PM EST Kylee VU LAB BLOOD ORDERABLES Final Resul t [facility] [address] [place] [address], [place] [phone] * (ABNORMAL) Basic metabolic panel (02/07/2024 12:18 PM EST) Sodium 137 133 - 145 mmol/L LAB CHEMISTRY METHOD 02/07/2024 5:[address] [facility] Potassium 4.3 3.5 - 5.5 mmol/L LAB CHEMISTRY METHOD 02/07/2024 5:[address] [facility] Chloride 101 96 - 110 mmol/L LAB CHEMISTRY METHOD 02/07/2024 5:[address] [facility] CO2 31 21 - 32 mmol/L LAB CHEMISTRY METHOD 02/07/2024 5:[address] [facility] Anion Gap 5 3 - 11 LAB CHEMISTRY METHOD 02/07/2024 5:[address] [facility] Glucose 208(H) 70 - 100 mg/dL LAB CHEMISTRY METHOD 02/07/2024 5:[address] [facility] BUN 10 5 - 25 mg/dL LAB CHEMISTRY METHOD 02/07/2024 5:[address] [facility] Creatinine 0.73 0.70 - 1.30 mg/dL LAB CHEMISTRY METHOD 02/07/2024 5:[address] [facility] eGFR 97 >=60 mL/min/1. 73m2 LAB CHEMISTRY METHOD 02/07/2024 5:[address] [facility] Comment:Calculation based on the??Chronic Kidney Disease Epidemiology Collaboration (CKD-EPI) equation refit??without adjustment for race. BUN/Creatinine Ratio 13.7 LAB CHEMISTRY METHOD 02/07/2024 5:[address] [facility] Calcium 9.1 8.5 - 10.5 mg/dL LAB CHEMISTRY METHOD 02/07/2024 5:[address] 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
--- OUTSIDE RECORDS SUMMARY | 2024-04-13 19:33 | XMS_ITS | Encounter Summary ---
Author Organization [facility] Address [address] [place] [address] Care Team Providers Care Saw Edge Fuser Circular Name Role Phone Jos Pineda MD Primary Care Provider [phone] Reason for Visit * Reason Onset Date Comments Request For Order(s) 04/12/2024 [facility] Care - S5T3 Encounter Details Date Type Department Care Team (Late Contact Info) Description 04/12/2024 Telephone Internal Medicine - [place] 175 [facility] [address] [place] [address] Nohelia Melo MA Request For Order(s) ([facility] Care - S5T3) Social History Tobacco Use [...] Melo MA - 04/12/2024 7:30 AM EST [facility] - S5T3 Please sign & fax [phone] documented in this encounter Plan of Treatment Upcoming Encounters Date Type Department Care Team (Late Contact Info) Description 04/27/2024 8:45 AM EDT Office Visit Orthopedic Surgery - [place] 250 175 [facility] [address] [place] [phone] Sravan Jimenez, DPM 175 [facility] [address] [place] [address] 05/05/2024 3:40 PM EDT Office Visit Endocrinology - [place] [address] [place] [address] Kylee Rueda PA 444 [place] [address] 08/30/2024 8:30 AM EDT Office Visit Internal Medicine - [place] 175 [facility] [address] [place] [phone] Jos Pineda MD [address] [address] 10/11/2024 10:30 AM EDT Ancillary Procedure [facility] - [facility] 154 300 [facility] [address] [place] [address] documented as of this encounter Visit Diagnoses Not on filedocumented in this encounter Additional Health Concerns Assessment Noted Time PHQ-9 Depression Total Score: 2 03/01/19 25 9:22 AM EST A fall risk assessment has been complete d for the patient 03/01/2024 9:19 AM EST documented as of this encounter Care Teams Saw Edge Fuser Circular Relationship Specialty Start Date End Date Jos Pineda MD 175 [facility] 200 [place] [address] PCP - General Internal Medicine 12/17/17 documented as of this encounter
--- OUTSIDE RECORDS SUMMARY | 2024-04-13 19:33 | XMS_ITS | Encounter Summary ---
Author Organization [facility] Address [address] [place] [address] Care Team Providers Care Supervisor Order Takers Name Role Phone Jos Pineda MD Primary Care Provider [phone] Reason for Visit * Reason Onset Date Comments Request For Order(s) 03/27/2024 [facility] - L3F7 Encounter Details Date Type Department Care Team (Late st Contact Info) Description 03/27/2024 Telephone Internal Medicine - [place] [address] [place] [address] Nohelia Melo MA Request For Order(s) ([facility] - L3F7/) Social History Tobacco Use Types [...] EST Scanned into chart and faxed to [facility] [phone] * Nohelia Melo MA - 03/27/2024 8:08 AM EST [facility] - L3F7 Please sign & fax [phone] documented in this encounter Plan of Treatment Upcoming Encounters Date Type Department Care Team (Late st Contact Info) Description 04/27/2024 8:45 AM EDT Office Visit Orthopedic Surgery - [place] 250 175 [facility] [address] [place] [address] Sravan Jimenez DPElisha 175 [facility] [address] [place] [address] 05/05/2024 3:40 PM EDT Office Visit Endocrinology - [place] [address] [place] [address] Kylee Rueda PA [address] [place] [address] 08/30/2024 8:30 AM EDT Office Visit Internal Medicine - [place] [address] [address] Jos Pineda MD [address] [address] 10/11/2024 10:30 AM EDT Ancillary Procedure [facility] - [facility] 154 300 [facility] [address] [place] [address] documented as of this encounter Visit Diagnoses Not on filedocumented in this encounter Additional Health Concerns Assessment Noted Time PHQ-9 Depression Total Score: 2 03/01/19 25 9:22 AM EST A fall risk assessment has been complete d for the patient 03/01/2024 9:19 AM EST documented as of this encounter Care Teams Supervisor Order Takers Relationship Specialty Start Date End Date Jos Pineda MD 175 [facility] 200 [place] [address] PCP - General Internal Medicine 12/17/17 documented as of this encounter
--- OUTSIDE RECORDS SUMMARY | 2024-04-13 19:33 | XMS_ITS | Clinical Summary ---
Author Organization [facility] Address [address] [place] [address] Care Team Providers Care Instrumentation Specialist Name Role Phone Unavailable Primary Care Provider [...] injectionIndicati ons:Diabetes mellitus type 2 in nonobese ([facility]) Inject 80 Units into the skin once daily. 10 mL 6 Active liraglutide (VICTOZA) 0.6 mg/0.1 mL (18 mg/3 mL) injection penIndications:Di abetes mellitus type 2 in nonobese ([facility]) Inject 1.2 mg into the skin [...] Treatment Not on file [place]
--- OUTSIDE RECORDS SUMMARY | 2024-04-13 19:33 | XMS_ITS | Encounter Summary ---
Author Organization [facility] Address [address] [place] [address] Care Team Providers Care Geothermal Heat Pump Machinist Name Role Phone Jos Pineda MD Primary Care Provider [phone] Encounter Details Date Type Department Care Team (Late Contact Info) Description 03/02/2024 Telephone Internal Medicine - [place] 175 [facility] [address] [place] [phone] Jos Pineda MD 175 [facility] [address] [place] [address] Social History Tobacco Use Types Packs/Day Years [...] AM EDT Office Visit Orthopedic Surgery - [place] 250 175 [facility] [address] [place] [phone] Sravan Jimenez, DPM 175 [facility] 250 [place] [address] 05/05/2024 3:40 PM EDT Office Visit Endocrinology - [place] [address] [place] [address] Kylee Rueda PA [address] [place] [address] 08/30/2024 8:30 AM EDT Office Visit Internal Medicine - [place] 175 [facility] 200 [place] [address] Jos Pineda MD [address] [address] 10/11/2024 10:30 AM EDT Ancillary Procedure [facility] - [facility] 154 300 [facility] [address] [place] [address] documented as of this encounter Visit Diagnoses Not on filedocumented in this encounter Additional Health Concerns Assessment Noted Time PHQ-9 Depression Total Score: 2 03/01/19 9:22 AM EST A fall risk assessment has been complete d for the patient 03/01/2024 9:19 AM EST documented as of this encounter Care Teams Geothermal Heat Pump Machinist Relationship Specialty Start Date End Date Jos Pineda MD 175 [facility] 200 [place] [address] PCP - General Internal Medicine 12/17/17 documented as of this encounter
--- OUTSIDE RECORDS SUMMARY | 2024-04-13 19:33 | XMS_ITS | Encounter Summary ---
Author Organization [facility] [place] [facility] Address [address] [place] [address] Care Team Providers Care Ditch Tender Name Role Phone Jos Pineda MD Primary Care Provider [phone] Reason for Visit * Reason Onset Date Comments Scheduling Recall 02/18/2024 Encounter Details Date Type Department Care Team (Late st Contact Info) Description 02/18/[address] [place] [address] Eliseo Morejon MD [address] [place] [address] DRIVE [address] [place] [address] Scheduling Recall Social History Tobacco Use Types [...] EDT Office Visit Orthopedic Surgery - [place] 250 175 [facility] 250 [place] [phone] Sravan Jimenez DPElisha 175 [facility] 250 [place] [address] 05/05/2024 3:40 PM EDT Office Visit Endocrinology - [place] 444 [place] [address] Kylee Rueda PA 444 [place] [address] 08/30/2024 8:30 AM EDT Office Visit Internal Medicine - [place] 175 [facility] 200 [place] [phone] Jos Pineda MD 175 [facility] 200 [place] [address] 10/11/2024 10:30 AM EDT Ancillary Procedure [facility] - [facility] 154 300 [facility] 154 [place] [address] documented as of this encounter Visit Diagnoses Not on filedocumented in this encounter Care Teams Ditch Tender Relationship Specialty Start Date End Date Jos Pineda MD 175 [facility] 200 [place] [address] PCP - General Internal Medicine 12/17/17 documented as of this encounter
== END 2024-04-13 15:54 | disposition home or self-care (01) ==
LOC: HO.LNP 15:53
PROVIDERS: PCP Internal Medicine; Visit Provider Urology
DX: R30.0 Dysuria (principal); N40.1 Benign prostatic hyperplasia with lower urinary tract symptoms; R39.9 Unspecified symptoms and signs involving the genitourinary system; R31.9 Hematuria, unspecified; N32.89 Other specified disorders of bladder; N13.30 Unspecified hydronephrosis; N13.4 Hydroureter; Z13.9 Encounter for screening, unspecified
CPT/HCPCS: 81003; 87086; 88112; 99212

== ENCOUNTER 2024-05-25 07:51 | Outpatient (REF) | payer OTHER, SELFPAY ==
--- OUTSIDE RECORDS SUMMARY | 2024-05-25 07:55 | XMS_ITS | Encounter Summary ---
Author Organization [facility] Address [address] [place] [address] Care Team Providers Care Payment Specialist Name Role Phone Jos Pineda MD Primary Care Provider Reason for Visit * Reason Onset Date Comments Request For Order(s) 05/24/2024 [facility] e Health Care Cert 04/27/24-06/25/24 Encounter Details Date Type Department Care Team (Late st Contact Info) Description 05/24/2024 Telephone Internal Medicine - [place] [address] [place] [address] Nohelia Melo MA Request For Order(s) ([facility] Cert 04/27/24-06/25/24/) Social History Tobacco Use Types Packs/Day Years [...] Progress Notes * Nohelia Melo MA - 05/24/2024 1:31 PM EDT [facility] 04/27/24-06/25/24 Please sign & fax [phone] documented in this encounter Plan of Treatment Upcoming Encounters Date Type Department Care Team (Late st Contact Info) Description 07/27/2024 8:45 AM EDT Office Visit Orthopedic Surgery - [place] 250 175 [facility] 250 [place] [phone] Sravan Jimenez DPElisha 175 [facility] 250 [place] [address] 08/30/2024 8:30 AM EDT Office Visit Internal Medicine - [place] 175 [facility] 200 [place] [address] Jos Pineda MD 175 [facility] 200 [place] [address] 10/11/2024 10:30 AM EDT Ancillary Procedure [facility] - [facility] 154 300 [facility] 154 [place] [address] 12/11/2024 3:40 PM EDT Office Visit Endocrinology - [place] 444 [place] [address] Kylee Rueda PA 444 [place] [address] documented as of this encounter Visit Diagnoses Not on filedocumented in this encounter Additional Health Concerns Assessment Noted Time PHQ-9 Depression Total Score: 2 03/01/19 9:22 AM EST A fall risk assessment has been complete d for the patient 03/01/2024 9:19 AM EST documented as of this encounter Care Teams Payment Specialist Relationship Specialty Start Date End Date Jos Pineda MD 175 [facility] 200 [place] [address] PCP - General Internal Medicine 12/17/17 documented as of this encounter
--- OUTSIDE RECORDS SUMMARY | 2024-05-25 07:56 | XMS_ITS | Clinical Summary ---
Author Organization [facility] Address [address] [place] [address] Care Team Providers Care Construction Craft Laborer Name Role Phone Unavailable Primary Care Provider [...] (DEPAKOTE) [address] tabletIndications :Mood disorder ([facility] V24) Take 1 Tab by mouth once daily. Swallow whole. Do not crush or chew. 6 Active divalproex (DEPAKOTE ER) 500 mg 24 hr tabletIndications :Mood disorder ([facility] V24) Take 1 Tab by mouth nightly at bedtime. Swallow whole. Do not crush or chew. 6 Active risperiDONE (RISPERDAL) 2 mg tabletIndications :Mood disorder ([facility] V24) Take 1 Tab by mouth 2 (two) times daily. 6 Active OLANZapine (ZYPREXA) 15 mg tabletIndications :Mood disorder ([facility] V24) Take 1 Tab by mouth nightly at bedtime. 6 Active diphenhydrAMINE (BENADRYL) 50 mg tabletIndications :Insomnia due to other mental disorder Take 1 Tab by mouth nightly at bedtime as needed for sleep. 6 Active aspirin (ASPIRIN LOW DOSE) [address] tabletIndications :Diabetes mellitus type 2 in nonobese ([facility]) Take 1 Tab by mouth once daily. [...] injectionIndicati ons:Diabetes mellitus type 2 in nonobese ([facility]) Inject 80 Units into the skin once daily. 10 mL 6 Active liraglutide (VICTOZA) 0.6 mg/0.1 mL (18 mg/3 mL) injection penIndications:Di abetes mellitus type 2 in nonobese ([facility]) Inject 1.2 mg [...] Treatment Not on file [place]
--- OUTSIDE RECORDS SUMMARY | 2024-05-25 07:56 | XMS_ITS | Encounter Summary ---
Author Organization [facility] Address [address] [place] [address] Care Team Providers Care Education Officer Name Role Phone Jos Pineda MD Primary Care Provider [phone] Reason for Visit * Reason Onset Date Comments Med Refill 05/08/2024 Encounter Details Date Type Department Care Team (Late Contact Info) Description 05/08/2024 Telephone Orthopedic Surgery - [place] [address] [phone] Sravan Jimenez, DPM [address] [address] Med Refill Social History Tobacco Use Types Packs/Day Years [...] as of this encounter Progress Notes * Florence Grover - 05/08/2024 10:32 AM EDT Koko is calling for a refill of the Clotrimazole 1% cream, [facility] request a larger tude of the cream if possible documented in this encounter Plan of Treatment Upcoming Encounters Date Type Department Care Team (Late Contact Info) Description 07/27/2024 8:45 AM EDT Office Visit Orthopedic Surgery - [place] 250 175 [facility] 250 [place] [phone] Sravan Jimenez DPM 175 [facility] 250 [place] [address] 08/30/2024 8:30 AM EDT Office Visit Internal Medicine - [place] 175 [facility] 200 [place] [address] Jos Pineda MD 175 [facility] 200 [place] [address] 10/11/2024 10:30 AM EDT Ancillary Procedure [facility] 154 300 [facility] 154 [place] [address] 12/11/2024 3:40 PM EDT Office Visit Endocrinology - [place] [address] [place] [address] Kylee Rueda PA [address] [place] [address] documented as of this encounter Visit Diagnoses Not on filedocumented in this encounter Additional Health Concerns Assessment Noted Time PHQ-9 Depression Total Score: 2 03/01/19 25 9:22 AM EST A fall risk assessment has been complete d for the patient 03/01/2024 9:19 AM EST documented as of this encounter Care Teams Education Officer Relationship Specialty Start Date End Date Jos Pineda MD 175 [facility] 200 [place] [address] PCP - General Internal Medicine 12/17/17 documented as of this encounter
--- OUTSIDE RECORDS SUMMARY | 2024-05-25 07:56 | XMS_ITS | Clinical Summary ---
Author Organization 175 [facility] Address 175 [place] [address] Phone Care Team Providers Care Recyclable Materials Sorter Name Role Phone Jos Pineda MD Primary Care Provider [phone] Allergies No known active allergies Medications senna-docusate [...] (one) time each day. 09/24/19 23 Active naproxen sodium (ANAPROX) 220 mg tablet [...] tabletIndications :Type 2 diabetes mellitus without complications (CMS/HCC V24, CMS/HCC V28) TAKE 1 TABLET BY MOUTH TWICE A [...] 350-400: 6 units Greater than 400, call ut. 02/07/20 24 Active Lantus Solostar U-100 Insulin [...] each day. 30 each 5 03/01/19 25 // 025 Active metoprolol succinate (TOPROL-XL) 25 mg 24 hr tablet TAKE 1 TABLET BY MOUTH EVERY DAY 90 tablet 1 04/10/19 25 Active furosemide (LASIX) 20 mg tablet TAKE 1 TABLET BY MOUTH EVERY DAY 30 tablet 5 04/26/19 25 Active clotrimazole (LOTRIMIN) 1 % cream Apply topically 2 (two) times a day. 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 It seems to be more throat that esophagus. We will send the patient for a barium swallow and set up to see ENT Atrioventricular block, complete ([facility] V24, [facility] V28) 06/07/2020 Overview (11/22/2023): Last Assessment & Plan: [...] Coronary artery disease 05/23/2019 Overview (11/22/2023): Old [place] 1994 at age 45 Last Assessment & Plan: Previous history of myocardial infarction. No residual ischemia on stress testing. History nonsustained V. tach in the past no further episodes identified on monitor. Recent episode of weakness no indication of being cardiac. GERD (gastroesophageal reflux disease) 0 Lactose intolerance 05/23/2019 Diabetes mellitus type 2, un complicated ([facility], [facility] V28) 05/13/2017 Assessment & Plan (03/01/2024 10:40 AM EST): [...] under control on lisinopril and amlodipine. Schizophrenia ([facility] V24, [facility] V28) 018 Overview (11/22/2023): [facility] admit 06/2012 Sacral wound 03/30/2017 Pulmonary nodules/lesions, multiple 09/04/2014 Dermatophytosis of nail 01/26/2013 Assessment & Plan (03/01/2024 10:40 AM EST): Orders: Ambulatory referral to Podiatry; Future Encounters Date Type Department Care Team Description 05/24/2024 Telephone Internal Medicine - [place] [address] [address] Jos Pineda MD 05/24/2024 Telephone Internal Medicine [facility] 175 [facility] 200 [place] [address] Nohelia Melo MA Request For Order(s) ([facility] Care Cert 04/27/24-06/25/24/) 05/23/2024 Telephone Internal Medicine [facility] 175 [facility] 200 [place] [address] Noheila Melo MA Request For Order(s) ([facility] Care - 164K/) 05/08/2024 Telephone Orthopedic Surgery [facility] [address] [phone] Sravan Jimenez DPM Med Refill 05/05/2024 3:40 PM EDT Office Visit [address] [address] Kylee Rueda PA Type 2 diabetes mellitus without complication, with long-term current use of insulin ([facility] V24, [facility] V28) (Primary Dx); Primary hypertension; Hyperlipidemia, unspecified hyperlipidemia type 05/01/2024 Telephone Internal Medicine [facility] [address] [phone] Nohelia Melo [place] Request For Order(s) ([facility] - VPUB) 04/27/2024 8:45 AM EDT Office Visit Orthopedic Surgery [facility] [address] [phone] Sravan Jimenez DPM Tinea pedis of both feet (Primary Dx); Dermatophytosis of nail; Pain in toe of right foot; Pain in toe of left foot; Diabetic mononeuropathy simplex ([facility] V24, [facility] V28); Type II diabetes mellitus with peripheral circulatory disorder ([facility] V24, [facility] V28) 04/12/2024 Telephone Internal Medicine [address] [phone] Nohelia Melo [place] Request For Order(s) ([facility] - [id number]) 04/11/2024 10:00 AM EST Ancillary Procedure [facility] 154 300 [facility] 154 [place] [phone] Encounter for adjustment or management of cardiac device 03/30/2024 Telephone Internal Medicine [address] [phone] Nohelia Melo MA Request For Order(s) ([facility] - [id number]/) 03/27/2024 Telephone Internal Medicine [address] [address] Nohelia Melo [place] Request For Order(s) ([facility] Care Cert 02/27/24-04/26/24/) 03/27/2024 Telephone Internal Medicine [address] [address] Nohelia Melo [place] Request For Order(s) ([facility] - [id number]/) 03/27/2024 Telephone Internal Medicine [address] [address] Nohelia Melo [place] Request For Order(s) ([facility] - LXGY) 03/02/2024 Telephone Internal Medicine [address] [address] Jos Pineda MD 03/01/2024 9:30 AM EST Office Visit Internal Medicine [address] [address] Jos Pineda MD Type 2 diabetes mellitus without complication, with long-term current use of insulin ([facility] V24, [facility] V28) (Primary Dx); Primary hypertension; Dermatophytosis of nail; Smoker 02/29/[address] [address] Kylee Rueda PA MEDICATION 02/29/2024 Telephone Internal Medicine [address] [phone] Felicia Haney [place] faxed order ([facility]) from Last 3 Months Immunizations Name Administration [...] HISTORICAL CATARACT REMOVAL OTHER SURGICAL HISTORY PROCEDURE: RI BIOPSY TESTIS INCISIONAL SEPARATE PROCEDURE Medical History Medical History Date Comments History of encephalopathy 04/14/2017 DX:His tory of encephalopathy History of rhabdomyolysis 04/14/2017 DX:His tory of rhabdomyolysis Hyperlipidemia 05/13/2017 DX:Hyperlipidemi a Hypertension 05/13/2017 DX:Hypertension Dermatophytosis of nail 01/26/2013 DX:[place] tophytosis of nail S/P placement of cardiac pacemaker 05/13/2017 DX:S/P placement of cardiac pacemaker; COMMENT: Comments: 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 Schizophrenia ([facility] V24, [facility] V28) 05/13/2017 DX:Schizophrenia (HCC) Pulmonary nodules/lesions, multiple 09/04/2014 DX:Pulmonary nodules/lesions, multiple Diabetes mellitus type 2, uncomplicated (CMS/HCC V24, [facility] V28) 05/13/2017 DX:Diabetes mellitus type 2, uncomplicated ([facility]) Sacral wound 03/30/2017 DX:Sacral wound Coronary artery disease 05/23/2019 DX:Coron timur artery disease; COMMENT: Old [place] 1994 GERD (gastroesophageal reflux disease) 0 DX:GERD [...] Tobacco: Every Day Cigarettes Smokeless Tobacco: Former Tobacco Cessation:Ready to Q uit: Not Asked; Counseling Given: Not Answered Alcohol Use Standard Drinks/Week Comments No 0 (1 standard drink = 0.6 oz pur e alcohol) Sex and Gender Information Value Date Recorded Sex Assigned at Not on file Legal Sex Male 7:40 PM EST Gender Identity Not on file Sexual Orientation Not on file Obstetrics History Last Filed Vital Signs Vital Sign Reading Time Taken Comments Blood Pressure 123/71 05/05/2024 3:33 PM EDT Pulse 68 05/05/2024 3:33 PM EDT Temperature 36.1 ??C (97 ??F) 05/05/2024 3:33 PM EDT Respiratory Rate 16 02/07/2024 11:22 AM EST Oxygen Saturation 98% 05/05/2024 3:33 PM EDT Inhaled Oxygen Concentration - - Weight 91.2 kg (201 lb) 05/05/2024 3:33 PM EDT Height 185.4 cm (6' 1 ) 05/05/2024 3:33 PM EDT Body Mass Index 26.52 05/05/2024 3:33 PM EDT Plan of Treatment Upcoming Encounters Date Type Department Care Team (Late st Contact Info) Description 07/27/2024 8:45 AM EDT Office Visit Orthopedic Surgery - [place] 250 175 [facility] 250 [place] [phone] Sravan Jimenez DPM 175 [facility] 250 [place] [address] 08/30/2024 8:30 AM EDT Office Visit Internal Medicine - [place] 175 [facility] 200 [place] [address] Jos Pineda MD 175 [facility] 200 [place] [address] 10/11/2024 10:30 AM EDT Ancillary Procedure [facility] 154 300 [facility] 154 [place] [address] 12/11/2024 3:40 PM EDT Office Visit Endocrinology - [place] 444 [place] [address] Kylee Rueda PA 444 [place] [address] Health Maintenance Due Date Last Done Comments Diabetes: Annual Foot Exam 04/24/1961 Diabetes: Annual Retina Eye Exam 04/24/1961 DTaP,Tdap,and Td Vaccines (1 - Tdap) 04/24/1970 Hepatitis A Vaccines (1 of 2 - Risk 2-dose series) 04/24/1970 Zoster Vaccines (1 of 2) 04/24/2001 RSV Immunization Adult Patients (1 - Risk 60-74 years 1-dose series) 2011 Abdominal Aortic Aneurysm (AAA) Screen 01/24/2022 Hepatitis C Screening 01/24/2022 Social Influencers of Health Screening 01/24/2022 COVID-19 Vaccine ( season) 2023 04/04/2022, 06/10/2021, 12/05/2020, Additional history exists Diabetes: Blood Sugar Control Test (HGBA1C) 08/07/2024 02/07/2024, 09/30/2023, 09/30/2023, Additional history exists Influenza Vaccine (Season Ended) 2024 12/06/2020, 12/05/2020, 01/15/2004, Additional history exists Diabetes: Annual Urine Albumin-Creatinine [...] age to complete this topic Meningococcal B Vaccine Aged Out No l onger eligible based on patient's age to complete this topic RSV Immunization Patients Under 20 months Aged Out No longer eligible based on patient's age to complete this topic Varicella Vaccines Aged Out No longer eligible based on patient's age to complete this topic Procedures Procedure Name Priority Date/Time Associated Diagnosis Comments EXTERNAL CLINICAL LAB 04/13/2024 [place]ARDIAC [place]ICE [place]- [place] [facility] [facility] Routine 04/11/2024 9:50 AM EST Encounter for adjustment or management of cardiac device EXTERNAL ULTRASOUND REPORT 03/30/2024 EXTERNAL ULTRASOUND REPORT 03/30/2024 MICROALBUMIN CREATININE URINE RATIO Routine 02/07/2024 12:18 PM EST Type 2 diabetes mellitus without complication, with long-term current use of insulin ([facility] V24, [facility] V28) BASIC METABOLIC PANEL Routine 02/07/2024 12:18 PM EST Type 2 diabetes mellitus without complication, with long-term current use of insulin ([facility] V24, [facility] V28) HEMOGLOBIN A1C Routine 02/07/2024 12:18 PM EST Type 2 diabetes mellitus without complication, with long-term current use of insulin ([facility] V24, [facility] V28) HM COLONOSCOPY Routine 10/26/2023 LIPID PANEL Routine 09/16/2022 from Last 3 Months or Most Recently Relevant to Health Maintenance Results * External clinical lab (04/13/2024) us Provider [facility] BLOOD ORDERABLES Fin al Result * CARDIAC DEVICE CHECK- [facility] (04/11/2024 9:50 AM EST) Date Time Interrogation Session [id number] CV DEVICE CHECK Implantable Pulse Generator Shipping Specialist [place] CV DEVICE CHECK Implantable Pulse Generator Type IPG CV DEVICE CHECK Implantable Pulse Generator Model Assurity MRI 2272 CV DEVICE CHECK Implantable Pulse Generator Serial Number [id number] CV DEVICE CHECK Implantable Pulse Generator Implant Date [id number] CV DEVICE CHECK Battery Voltage 2.950 CV D EVICE CHECK Battery Status Middle of Service CV DEVICE CHECK Ananda Statistic RA Percent Paced 23.00 CV DEVICE CHECK Ananda Statistic RV Percent Paced 99.86 CV DEVICE CHECK Atrial Tachy Statistic AT/AF [place] Percent 1.00 CV DEVICE CHECK Lead Channel [...] reviewed and tested * Presenting Rhythm: - KEY OPERATOR 60 - 80's * Underlying Rhythm: VS 40's * Heart Rate Histograms reviewed * Pacing and Detection Parameters were evaluated Narrative Procedure Note Rosario Damico MD - 04/12/2024 IMPRESSION: Normal In-Office: No Events * Normal Device Function * Alerts or events: No sustained events noted * Battery: MOS, 3.10 yrs * Sensing, impedance and thresholds reviewed and tested * Presenting Rhythm: - KEY OPERATOR 60 - 80's * Underlying Rhythm: VS 40's * Heart Rate Histograms reviewed * Pacing and Detection Parameters were evaluated us Order Referral Cardiovascular CV IMPLANTABLE CAR DIAC DEVICE PROCEDURES Final Result * External Ultrasound Report (03/30/2024) Only the most recent of2 resultswithin the time period is included. Anatomical Region Laterality Modality Ultrasound us Provider [facility] IMG US PROCEDURES Final Result * (ABNORMAL) Microalbumin creatinine urine ratio (02/07/2024 12:18 PM EST) Creatinine, Urine 41.0 mg/dL LAB CHEMISTRY METHOD 02/07/2024 3:00 PM EST [facility] Microalb, Ur 29.6(H) 0.0 - 29.0 mg/L LAB CHEMISTRY METHOD 02/07/2024 3:00 PM EST [facility] Microalb/Crea t Ratio 72(H) <30 mg/g creat LAB CHEMISTRY METHOD 02/07/2024 3:00 PM EST [facility] Urine Urine specimen obtained by clean catch procedure / Unknown Non-blood Collection / Unknown 02/07/2024 12:18 PM EST 02/07/2024 12:18 PM EST us Kylee VU LAB URINE ORDERABLES Final Resul t [facility] [address] [place] [address], * (ABNORMAL) Hemoglobin A1c (02/07/2024 12:18 PM EST) Hemoglobin A1C 8.0(H) <6.5 % LAB CHEMISTRY METHOD 02/07/2024 2:27 PM EST [facility] Mean Bld Glu Estim. 183 mg/dL LAB CHEMISTRY METHOD 02/07/2024 2:27 PM EST [facility] Blood Venous blood specimen / Unknown Venipuncture / Unknown 02/07/2024 12:18 PM EST 02/07/2024 12:18 PM EST us Kylee VU LAB BLOOD ORDERABLES Final Resul t [facility] [address] [place] [address], * (ABNORMAL) Basic metabolic panel (02/07/2024 12:18 [...] 13.7 LAB CHEMISTRY METHOD 02/07/2024 5:07 PM EST [facility] Calcium 9.1 8.5 - 10.5 mg/dL LAB CHEMISTRY METHOD 02/07/2024 5:07 PM EST [facility] Blood Venous blood specimen / Unknown Venipuncture / Unknown 02/07/2024 12:18 PM EST 02/07/2024 12:18 PM EST Kylee VU LAB BLOOD ORDERABLES Final Resul t [facility] [address] [place] [address], * Colonoscopy (10/26/2023) Pathologist [facility] Colonoscopy no interpretation , abstracted Anatomical Region Laterality Modality Other Historical Provider HEALTH MAINTENANCE Final Result * (ABNORMAL) Lipid panel (09/16/2022) [facility] LDL/HDL Ratio 5(A) 0 - 4 Triglycerides [...] Documents on File Type Date Recorded 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
--- OUTSIDE RECORDS SUMMARY | 2024-05-25 07:56 | XMS_ITS | Encounter Summary ---
Author Organization [facility] Address [address] [place] [address] Care Team Providers Care General Hardware Salesperson Name Role Phone Jos Pineda MD Primary Care Provider [phone] Reason for Visit * Reason Onset Date Comments Request For Order(s) 05/23/2024 [facility] - [facility] Encounter Details Date Type Department Care Team (Late Contact Info) Description 05/23/2024 Telephone Internal Medicine [facility] 175 [facility] 200 [place] [phone] Nohelia Melo MA Request For Order(s) ([facility] Care - 164K/) Social History Tobacco Use Types Packs/Day Years [...] Progress Notes * Nohelia Melo MA - 05/23/2024 7:44 AM EDT [facility] - 164[facility] Please sign & fax [phone] documented in this encounter Plan of Treatment Upcoming Encounters Date Type Department Care Team (Late Contact Info) Description 07/27/2024 8:45 AM EDT Office Visit Orthopedic Surgery - [place] 250 175 [facility] 250 [place] [address] Sravan Jimenez, DPM 175 [facility] 250 [place] [address] 08/30/2024 8:30 AM EDT Office Visit Internal Medicine - [place] 175 [facility] 200 [place] [address] Jos Pineda MD 175 [facility] 200 [place] [address] 10/11/2024 10:30 AM EDT Ancillary Procedure [facility] - [facility] 154 300 [facility] 154 [place] [phone] 12/11/2024 3:40 PM EDT Office Visit Endocrinology - [place] [address] [place] [address] Kylee Rueda PA [address] [place] [address] documented as of this encounter Visit Diagnoses Not on filedocumented in this encounter Additional Health Concerns Assessment Noted Time PHQ-9 Depression Total Score: 2 03/01/19 25 9:22 AM EST A fall risk assessment has been complete d for the patient 03/01/2024 9:19 AM EST documented as of this encounter Care Teams General Hardware Salesperson Relationship Specialty Start Date End Date Jos Pineda MD 175 [facility] 200 [place] [address] PCP - General Internal Medicine 12/17/17 documented as of this encounter
--- OUTSIDE RECORDS SUMMARY | 2024-05-25 07:56 | XMS_ITS | Encounter Summary ---
Author Organization [facility] Address [address] [place] [address] Care Team Providers Care Self Propelled Mining Machine Operator Name Role Phone Jos Pineda MD Primary Care Provider Encounter Details Date Type Department Care Team (Late st Contact Info) Description 05/24/2024 Telephone Internal Medicine [facility] [address] [place] [phone] Jos Pineda MD [address] [place] [address] Social History Tobacco Use Types Packs/Day Years [...] as of this encounter Progress Notes * Mable Conrad - 05/24/2024 2:47 PM EDT [facility] is calling [phone] Requesting a One Touch glucometer w/supplies for pt? Please send to [facility] on [address] Ty KAJAL 03/01/24 documented in this encounter Plan of Treatment Upcoming Encounters Date Type Department Care Team (Late st Contact Info) Description 07/27/2024 8:45 AM EDT Office Visit Orthopedic Surgery - [place] [address] [place] [address] Sravan Jimenez DPM 175 [facility] 250 [place] [address] 08/30/2024 8:30 AM EDT Office Visit Internal Medicine - [place] 175 [facility] 200 [place] [address] Jos Pineda MD 175 [facility] 200 [place] [address] 10/11/2024 10:30 AM EDT Ancillary Procedure [facility] - [facility] 154 300 [facility] 154 [place] [address] 12/11/2024 3:40 PM EDT Office Visit Endocrinology - [place] [address] [place] [address] Kylee Rueda PA 444 [place] [address] documented as of this encounter Visit Diagnoses Not on filedocumented in this encounter Additional Health Concerns Assessment Noted Time PHQ-9 Depression Total Score: 2 03/01/19 9:22 AM EST A fall risk assessment has been complete d for the patient 03/01/2024 9:19 AM EST documented as of this encounter Care Teams Self Propelled Mining Machine Operator Relationship Specialty Start Date End Date Jos Pineda MD [address] [address] PCP - General Internal Medicine 12/17/17 documented as of this encounter
[2024-05-25 09:05] LABS: Blood Urea Nitrogen 5 mg/dL (9-16); Estimated Glomerular Filt Rate > 60
== END 2024-05-25 07:52 | disposition home or self-care (01) ==
LOC: HO.LAB 07:51
PROVIDERS: PCP Internal Medicine; Visit Provider Urology
DX: R31.9 Hematuria, unspecified (principal)
CPT/HCPCS: 36415; 82565; 84520

== ENCOUNTER 2024-06-14 08:08 | Outpatient (REF) | payer OTHER, SELFPAY ==
--- NOTE | ~2024-06-14 | CT_ITS ---
CLINICAL HISTORY: R31.9 - Hematuria, unspecified CT abdomen and pelvis without/with contrast Comparison: None Findings: Lung bases clear. No acute bony abnormalities. Degenerative change lumbar spine and hips. Liver and spleen within normal limits. Pancreas and adrenal glands unremarkable. Cholelithiasis without gallbladder distention. Heterogeneous irregular trabeculated bladder wall. Bladder wall thickening noted, greater on the left. Bladder wall thickening also more prominent anteriorly. Differential includes acute cystitis as well as mass. Left hydronephrosis and ureteral dilation noted. No left ureteral stone noted. No focal bilateral renal abnormality. No right hydronephrosis or renal stone. Abdominal aorta is normal in caliber. No free fluid or adenopathy in the pelvis. No diverticulitis. Appendix unremarkable. Impression: Left hydronephrosis and ureteral dilation without stone Heterogeneous bladder wall thickening with adjacent stranding Bladder mass is not excludable Pattern may indicate acute cystitis as well This document has been electronically signed by: Tariq Mora MD on 06/14/2024 19:23:42
--- OUTSIDE RECORDS SUMMARY | 2024-06-14 08:17 | XMS_ITS | Clinical Summary ---
Author Organization [facility] Address [address] [place] [address] Care Team Providers Care Frit Mixer Name Role Phone Unavailable Primary Care Provider [...] (DEPAKOTE) [address] tabletIndications :Mood disorder ([facility] V24) Take 1 Tab by mouth once daily. Swallow whole. Do not crush or chew. 6 Active divalproex (DEPAKOTE ER) 500 mg 24 hr tabletIndications :Mood disorder ([facility] V24) Take 1 Tab by mouth nightly at bedtime. Swallow whole. Do not crush or chew. 6 Active risperiDONE (RISPERDAL) 2 mg tabletIndications :Mood disorder ([facility] V24) Take 1 Tab by mouth 2 (two) times daily. 6 Active OLANZapine (ZYPREXA) 15 mg tabletIndications :Mood disorder ([facility] V24) Take 1 Tab by mouth nightly at bedtime. 6 Active diphenhydrAMINE (BENADRYL) 50 mg tabletIndications :Insomnia due to other mental disorder Take 1 Tab by mouth nightly at bedtime as needed for sleep. 6 Active aspirin (ASPIRIN LOW DOSE) [address] tabletIndications :Diabetes mellitus type 2 in nonobese ([facility]) Take 1 Tab by mouth [...] injectionIndicati ons:Diabetes mellitus type 2 in nonobese ([facility]) Inject 80 Units into the skin once daily. 10 mL 6 Active liraglutide (VICTOZA) 0.6 mg/0.1 mL (18 mg/3 mL) injection penIndications:Di abetes mellitus type 2 in nonobese ([facility]) Inject 1.2 mg into the skin once [...] Treatment Not on file Insurance [place]
--- OUTSIDE RECORDS SUMMARY | 2024-06-14 08:17 | XMS_ITS | Encounter Summary ---
Author Organization [facility] Address [address] [place] [address] Care Team Providers Care Pediatric Social Worker Name Role Phone Jos Pineda MD Primary Care Provider [phone] Encounter Details Date Type Department Care Team ([facility] st Contact Info) Description 05/24/2024 Telephone Internal Medicine - [place] 175 [facility] [address] [place] [phone] Jos Pineda MD [address] [place] [address] Social History Tobacco Use Types Packs/Day Years [...] as of this encounter Progress Notes * Vijay Mckeon MA - 05/25/2024 9:17 AM EDT Please advise * Mable Conrad - 05/24/2024 2:47 PM EDT [facility] is calling [phone] Requesting a One Touch glucometer w/supplies for pt? Please send to [facility] on [facility] [address] Ty KAJAL 1/15/25 documented in this encounter Plan of Treatment Upcoming Encounters Date Type Department Care Team (Late st Contact Info) Description 07/27/2024 8:45 AM EDT Office Visit Orthopedic Surgery - [place] 250 175 [facility] 250 [place] [address] Sravan Jimenez, DPM 175 [facility] 250 [place] [address] 08/30/2024 8:30 AM EDT Office Visit Internal Medicine - [place] 175 [facility] 200 [place] [address] Jos Pineda MD 175 [facility] 200 [place] [address] 10/11/2024 10:30 AM EDT Ancillary Procedure [facility]iology Associates - [facility] 154 300 [facility] 154 [place] [address] 12/11/2024 3:40 PM EDT Office Visit Endocrinology - [place] 444 [place] [address] Kylee Rueda PA 444 [place] [address] documented as of this encounter Visit Diagnoses Not on filedocumented in this encounter Additional Health Concerns Assessment Noted Time PHQ-9 Depression Total Score: 2 03/01/19 25 9:22 AM EST A fall risk assessment has been complete d for the patient 03/01/2024 9:19 AM EST documented as of this encounter Care Teams Pediatric Social Worker Relationship Specialty Start Date End Date Jos Pineda MD 175 [facility] 200 [place] [address] PCP - General Internal Medicine 12/17/17 documented as of this encounter
--- OUTSIDE RECORDS SUMMARY | 2024-06-14 08:17 | XMS_ITS | Clinical Summary ---
Author Organization 175 [facility] Address 175 [place] [address] Phone Care Team Providers Care Heater Operator Helper Name Role Phone Jos Pineda MD Primary Care Provider [phone] Allergies No known active allergies Medications senna-docusate [...] 350-400: 6 units Greater than 400, call nh. 02/07/20 24 Active Lantus Solostar U-100 Insulin [...] DAY 30 tablet 5 04/26/19 25 Active blood-glucose meter kit 1 each 2 (two) times a day before meals. One touch 1 kit 1 05/26/19 25 Active clotrimazole (LOTRIMIN) 1 % cream Apply topically 2 (two) times a day. 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 It seems to be more throat that esophagus. We will send the patient for a barium swallow and set up to see ENT Atrioventricular block, complete ([facility] V24, [facility] V28) 06/07/2020 Overview (11/22/2023): Last Assessment & [...] 05/23/2019 Diabetes mellitus type 2, un complicated ([facility], [facility] V28) 05/13/2017 Assessment & Plan (03/01/2024 10:40 [...] under control on lisinopril and amlodipine. Schizophrenia ([facility] V24, [facility] V28) 018 Overview (11/22/2023): [facility] admit 06/2012 Sacral wound 03/30/2017 Pulmonary nodules/lesions, multiple 09/04/2014 Dermatophytosis of nail 01/26/2013 Assessment & Plan (03/01/2024 10:40 AM EST): Orders: Ambulatory referral to Podiatry; Future Encounters Date Type Department Care Team Description 05/24/2024 Telephone Internal Medicine - [place] [address] [phone] Jos Pineda MD 05/24/2024 Telephone Internal Medicine [facility] [address] [phone] Nohelia Melo [place] Request For Order(s) ([facility] Health Care Cert 04/27/24-06/25/24/) 05/23/2024 Telephone Internal Medicine [facility] [address] [phone] Nohelia Melo [place] Request For Order(s) ([facility] - 164K/) 05/08/2024 Telephone Orthopedic Surgery [facility] [address] [phone] Sravan Jimenez, ANNALISA Med Refill 05/05/2024 3:40 PM EDT Office Visit [address] [address] Kylee Rueda PA Type 2 diabetes mellitus without complication, with long-term current use of insulin ([facility] V24, [facility] V28) (Primary Dx); Primary hypertension; Hyperlipidemia, unspecified hyperlipidemia type 05/01/2024 Telephone Internal Medicine [facility] [address] [phone] Nohelia Melo [place] Request For Order(s) ([facility] - VPUB) 04/27/2024 8:45 AM EDT Office Visit Orthopedic Surgery [facility] [address] [phone] Sravan Jimenez, ANNALISA Tinea pedis of both feet (Primary Dx); Dermatophytosis of nail; Pain in toe of right foot; Pain in toe of left foot; Diabetic mononeuropathy simplex ([facility] V24, [facility] V28); Type II diabetes mellitus with peripheral circulatory disorder ([facility] V24, [facility] V28) 04/12/2024 Telephone Internal Medicine [facility] [address] [phone] Nohelia Melo [place] Request For Order(s) ([facility] - [id number]) 04/11/2024 10:00 AM EST Ancillary Procedure [facility]iology Associates - [facility] 154 300 [facility] 154 [place] [phone] Encounter for adjustment or management of cardiac device 03/30/2024 Telephone Internal Medicine [facility] 175 [facility] 200 [place] [phone] Nohelia Melo [place] Request For Order(s) ([facility] Care - 6CLN/) 03/27/2024 Telephone Internal Medicine - [place] [address] [address] Nohelia Melo [place] Request For Order(s) ([facility] 02/27/24-04/26/24/) 03/27/2024 Telephone Internal Medicine - [place] 175 [facility] 200 [place] [address] Nohelia Melo [place] Request For Order(s) ([facility] - [id number]/) 03/27/2024 Telephone Internal Medicine - [address] [address] Nohelia Melo [place] Request For Order(s) ([facility] Care - LXGY) from Last 3 Months Immunizations Name Administration Dates Next Due Influenza, Unspecified 12/05/2020 Pfizer SARS-CoV-2 COVID-19, mRNA, LNP-S, preservative free 12/05/2020 Pneumococcal conjugate 20 [facility] (Prevnar 20, PCV 20) 2mo and older 03/19/2022 Surgical History Surgery Date Site/Laterality Comments COLONOSCOPY 12/19/2001 PROCEDURE: HISTORICAL COLONOSCOPY COLONOSCOPY 06/18/2016 PROCEDURE: HISTORICAL COLONOSCOPY; COMMENT: repeat 3 years CATARACT EXTRACTION 10/2014 Bilateral PROCEDURE: HISTORICAL CATARACT REMOVAL OTHER SURGICAL HISTORY PROCEDURE: MS BIOPSY TESTIS INCISIONAL SEPARATE PROCEDURE Medical History Medical History Date Comments History of encephalopathy 04/14/2017 DX:His tory of encephalopathy History of rhabdomyolysis 04/14/2017 DX:His tory of rhabdomyolysis Hyperlipidemia 05/13/2017 DX:Hyperlipidemi a Hypertension 05/13/2017 DX:Hypertension Dermatophytosis of nail 01/26/2013 DX:[place] tophytosis of nail S/P placement of cardiac pacemaker 05/13/2017 DX:S/P placement of cardiac pacemaker; COMMENT: Comments: 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 Schizophrenia (CMS/HCC V24, CMS/HCC V28) 05/13/2017 DX:Schizophrenia (HCC) Pulmonary nodules/lesions, multiple 09/04/2014 DX:Pulmonary nodules/lesions, multiple Diabetes mellitus type 2, uncomplicated ([facility]/HCC V24, [facility] V28) 05/13/2017 DX:Diabetes mellitus type 2, uncomplicated ([facility]) Sacral wound 03/30/2017 DX:Sacral wound Coronary artery [...] AM EDT Office Visit Orthopedic Surgery - [place] [address] [phone] Sravan Jimenez, DPM [address] [address] 08/30/2024 8:30 AM EDT Office Visit Internal Medicine - [place] 175 [facility] 200 [place] [phone] Jos Pineda MD 175 [facility] [address] [place] [address] 10/11/2024 10:30 AM EDT Ancillary Procedure [facility] - [facility] 154 300 [facility] 154 [place] [phone] 12/11/2024 3:40 PM EDT Office Visit Endocrinology - [place] 444 [place] [address] Kylee Rueda PA 444 [place] [address] Health Maintenance Due Date Last Done Comments [...] Date/Time Associated Diagnosis Comments EXTERNAL CLINICAL LAB 05/25/2024 EXTERNAL CLINICAL LAB 04/13/2024 CARDIAC DEVICE CHECK- IN [facility]- [facility] [place] [place] Routine 04/11/2024 9:50 AM EST Encounter for adjustment or management of cardiac device EXTERNAL ULTRASOUND REPORT 03/30/2024 EXTERNAL ULTRASOUND REPORT 03/30/2024 MICROALBUMIN CREATININE URINE RATIO Routine 02/07/2024 12:18 PM EST Type 2 diabetes mellitus without complication, with long-term current use of insulin ([facility] V24, [facility] V28) BASIC METABOLIC PANEL Routine 02/07/2024 12:18 PM EST Type 2 diabetes mellitus without complication, with long-term current use of insulin (CMS/HCC V24, CMS/HCC V28) HEMOGLOBIN A1C Routine 02/07/2024 12:18 PM EST Type 2 diabetes mellitus without complication, with long-term current use of insulin (CMS/HCC V24, CMS/HCC V28) HM COLONOSCOPY Routine 10/26/2023 LIPID PANEL Routine 09/16/2022 from Last 3 Months or Most Recently Relevant to Health Maintenance Results * External clinical lab (05/25/2024) Only the most recent of2 resultswithin the time period is included. us Provider [facility] LAB BLOOD ORDERABLES Fin al Result * CARDIAC DEVICE CHECK- [facility]- [facility] [place] (04/11/2024 9:50 AM EST) Date Time Interrogation Session [id number] CV DEVICE CHECK Implantable Pulse Generator Assurance Manager Insurance [employer] CV DEVICE CHECK Implantable Pulse Generator Type IPG CV DEVICE CHECK Implantable Pulse Generator Model Assurity MRI 2272 CV DEVICE CHECK Implantable Pulse Generator Serial Number [id number] CV DEVICE CHECK Implantable Pulse Generator Implant Date [id number] CV DEVICE CHECK Battery Voltage 2.950 CV D EVICE CHECK Battery Status Middle of Service CV DEVICE CHECK Ananda Statistic RA Percent Paced 23.00 CV DEVICE CHECK Ananda Statistic RV Percent Paced 99.86 CV DEVICE CHECK Atrial Tachy Statistic AT/AF [place] Percent 1.00 CV DEVICE CHECK Lead Channel [...] reviewed and tested * Presenting Rhythm: - STRAW BOSS 60 - 80's * Underlying Rhythm: VS 40's * Heart Rate Histograms reviewed * Pacing and Detection Parameters were evaluated Narrative Procedure Note Rosario Damico MD - 04/12/2024 IMPRESSION: Normal In-Office: No Events * Normal Device Function * Alerts or events: No sustained events noted * Battery: MOS, 3.10 yrs * Sensing, impedance and thresholds reviewed and tested * Presenting Rhythm: - STRAW BOSS 60 - 80's * Underlying Rhythm: VS [...] mg/dL LAB CHEMISTRY METHOD 02/07/2024 3:00 PM [facility] Microalb, Ur 29.6(H) 0.0 - 29.0 mg/L LAB CHEMISTRY METHOD 02/07/2024 3:00 PM [facility] Microalb/Crea t Ratio 72(H) <30 mg/g creat LAB CHEMISTRY METHOD 02/07/2024 3:00 PM [facility] Urine Urine specimen obtained by clean catch procedure / Unknown Non-blood Collection / Unknown 02/07/2024 12:18 PM EST 02/07/2024 12:18 PM EST us Kylee VU LAB URINE ORDERABLES Final Resul t Performing Organization Address [facility]/ZIP Co de Phone Number [facility] [address] [place] [address], [place] [phone] * (ABNORMAL) Hemoglobin A1c (02/07/2024 12:18 PM EST) Hemoglobin A1C 8.0(H) <6.5 % LAB CHEMISTRY METHOD 02/07/2024 2:27 PM [facility] Mean Bld Glu Estim. 183 mg/dL LAB CHEMISTRY METHOD 02/07/2024 2:27 PM [facility] Blood Venous blood specimen / Unknown Venipuncture / Unknown 02/07/2024 12:18 PM EST 02/07/2024 12:18 PM EST us Kylee VU LAB BLOOD ORDERABLES Final Resul t [facility] [address] [place] [address], [place] [phone] * (ABNORMAL) Basic metabolic panel (02/07/2024 12:18 PM EST) Sodium 137 133 - 145 mmol/L LAB CHEMISTRY METHOD 02/07/2024 5:07 PM [facility] Potassium 4.3 3.5 - 5.5 mmol/L LAB CHEMISTRY METHOD 02/07/2024 5:07 PM [facility] Chloride 101 96 - 110 mmol/L LAB CHEMISTRY METHOD 02/07/2024 5:07 PM [facility] CO2 31 21 - 32 mmol/L LAB CHEMISTRY METHOD 02/07/2024 5:07 PM [facility] Anion Gap 5 3 - 11 LAB CHEMISTRY METHOD 02/07/2024 5:07 PM [facility] Glucose 208(H) 70 - 100 mg/dL LAB CHEMISTRY METHOD 02/07/2024 5:07 PM [facility] BUN 10 5 - 25 mg/dL LAB CHEMISTRY METHOD 02/07/2024 5:07 PM [facility] Creatinine 0.73 0.70 - 1.30 mg/dL LAB CHEMISTRY METHOD 02/07/2024 5:07 PM [facility] eGFR 97 >=60 mL/min/1. 73m2 LAB CHEMISTRY METHOD 02/07/2024 5:07 PM [facility] Comment:Calculation based on the??Chronic Kidney Disease Epidemiology Collaboration (CKD-EPI) equation refit??without adjustment for race. 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
[2024-06-14] MEDS: iohexoL 350 MG/ML 100 ML INFUS..BTL IV (09:44)
== END 2024-06-14 08:09 | disposition home or self-care (01) ==
LOC: HO.CT 08:08
PROVIDERS: PCP Internal Medicine; Visit Provider Urology
DX: R31.9 Hematuria, unspecified (principal); N13.4 Hydroureter; N13.30 Unspecified hydronephrosis
CPT/HCPCS: 74178; Q9967

== ENCOUNTER → 2024-06-14 08:10 | Outpatient (BNV) | payer OTHER, SELFPAY | PROVIDERS: PCP Internal Medicine; Visit Provider Radiology Diagnostic Radiology | DX: R31.9 Hematuria, unspecified (principal) | CPT/HCPCS: 74178 ==

== ENCOUNTER 2024-08-03 08:58 | Outpatient (REF) | payer OTHER, SELFPAY | END 2024-08-03 08:59 | disposition home or self-care (01) | LOC: HO.LAB 08:58 | PROVIDERS: PCP Internal Medicine; Visit Provider Urology | DX: N40.1 Benign prostatic hyperplasia with lower urinary tract symptoms (principal); R31.9 Hematuria, unspecified; N32.89 Other specified disorders of bladder; N13.30 Unspecified hydronephrosis; N13.4 Hydroureter | CPT/HCPCS: 52000; 81003; 87086; 99212 ==

== ENCOUNTER 2024-08-03 08:58 | Outpatient (AMB) | payer OTHER, SELFPAY ==
--- NOTE | 2024-08-03 09:17 | A.OFFVIS_ITS ---
Intake Visit Reasons: Cysto/ CT follow up Intake Note: Pt presents to the office today for a cystoscopy/CT follow up. Urology meds:Finasteride Blood thinners:Aspirin Cystoscope: Lot:[id number] Exp:06/23/26 Allergies No Known Allergies Allergy (Verified 08/03/24 09:17) Medication List - Last Reconciled 08/03/24 by Sonia Rojas MD amlodipine 5 mg PO DAILY aspirin 1 tab PO DAILY divalproex 250 mg PO BID divalproex 500 mg PO BID finasteride (Proscar) 5 mg PO DAILY insulin glargine (Lantus Solostar U-100 Insulin) units subcut lisinopril 2.5 mg PO DAILY magnesium oxide 400 mg PO DAILY metformin 1,000 mg PO BID metoprolol succinate ER 25 mg PO DAILY olanzapine 10 mg PO BEDTIME risperidone 2 mg PO BID sennosides-docusate sodium 8.6-50 mg (Senexon-S) 1 tab PO DAILY tamsulosin (Flomax) 0.4 mg PO BEDTIME HPI Comments Details: 08/03/24--Here for office cystoscopy. Cystoscopy findings: prostatic urethra trilobar enlargement, bulbous urethra WNL, limited evaluation further evaluation with outpatient cysto, and bladder biopsy. History of Present Illness - The patient is a 74-year-old male presenting for follow-up due to microscopic hematuria and left hydronephrosis. - Microscopic hematuria was identified during a previous evaluation, prompting further investigation. - Left hydronephrosis was noted, and a CT urogram was performed on 06/14/24 to assess the condition. - The CT urogram revealed persistent left hydronephrosis without evidence of ureteral stones. - Bladder wall thickening was observed, necessitating further evaluation and potential biopsy. Results - CT urogram on 06/14/24 showed persistent left hydronephrosis without ureteral stones. - Bladder wall thickening noted on imaging. Discussion Notes I discussed with the patient the findings of the CT urogram, which showed persistent left hydronephrosis and bladder wall thickening. We talked about the need for further evaluation, including a potential biopsy to assess the bladder wall thickening. I explained the procedure would be done in the hospital to ensure thorough examination and safety. We also reviewed the patient's current medications and discussed starting Flomax and finasteride for prostate management. 04/13/24--Koko is a 73-year-old male presenting for the follow-up of urinary system evaluations. An ultrasound has identified left kidney hydronephrosis, hydroureter and bladder wall thickening, suggestive of potential complication from Benign Prostatic Hyperplasia (BPH). His treatment history includes Finasteride, he states he stopped the tamsulosin because it caused him diarrhea. A PSA blood test showed normal results, 0.41 ng/mL. Today- hematuria on urinalysis, discussed further diagnostic plans including a CT urogram. Urinary Symptoms Review - Hematuria has been noted. Results - Labs: PSA level at 0.41 on March 07, 2024 - Imaging: Ultrasound results indicating hydronephrosis in the left kidney and thickening of the bladder wall. 02/24/24--Koko is a 73 year old male who is here for testicular pain and scrotal swelling. He states he had colonscopy, and then about 2-3 days later, there was swelling in the testicle he states he received a cream which improved the swelling and now his symptoms are resolved. He states it ibanez sometimes when he urinates. He wears pull ups. Exam--bilateral testicles, no swelling, nontender Office Procedures Cystoscopy Consent Discussed risk and benefit or proposed procedure with the patient. Information consent for procedure given to the patient. Discussed technical aspects, risks, benefits and alternatives in full. Addressed all of the patient's questions and concerns regarding the procedure. The patient demonstrated knowledge and understanding. They wish to proceed with this procedure. Preparation The patient was prepped in the usual manner. A wood crew supervisor was present and in the room. Genitalia was prepped with betadine solution in a sterile manner. Lidocaine Jelly 2% was placed into the urethra and 16Fr flexible Olympus cystoscope was inserted into the meatus after adequate lubrication. Procedure Time out per protocol performed. The flexible cystoscope is passed transurethrally: The bladder was inspected in its entirety with utilization retroflexion displaying: Tumor(s): limited evaluation further evaluation with outpatient cysto, and bladder biopsy. Trabeculation: Moderate with cellule changes, and diverticuli Mucosal Erthema: Orifices: normal shape and position Urethra: normal Cystoscopy findings: prostatic urethra trilobar enlargement, bulbous urethra WNL, limited evaluation further evaluation with outpatient cysto, and bladder biopsy. [id number] DISPOSABLE SCOPE URO-G FLEXIBLE SCOPE Procedure code (CPT) selection complete Office Meds lidocaine HCl 2 % mucosal jelly in applicator Performing Provider: Sonia Rojas MD Performing [facility] Administered by: Luis Enrique Meraz LPN on 08/03/24 09:37 Dose Route Admin Location Dispensed Lot Number Expiration Date ND Roll Tender 10 mL intra-urethral 20 mL nitrofurantoin monohydrate/macrocrystals 100 mg capsule Performing Provider: Sonia Rojas MD Performing Location: [facility] Administered by: Luis Enrique Meraz LPN on 08/03/24 09:37 Dose Route Admin Location Dispensed Lot Number Expiration Date ND Roll Tender 100 mg PO 1 cap Results AMB Urinalysis, Automated UA Leukoctes 500 Ezra/uL Last Edit by Angeline Cardoso CMA on 08/03/24 09:37 UA Nitrite Negative Last Edit by Angeline Cardoso CMA on 08/03/24 09:37 UA Urobilinogen 3.5 mg/dL Last Edit by Angeline Cardoso CMA on 08/03/24 09:37 UA Protein 0.3 mg/dL Last Edit by Angeline Cardoso CMA on 08/03/24 09:37 UA pH 6.0 Last Edit by Angeline Cardoso CMA on 08/03/24 09:37 UA Blood 80 Demetrius/uL Last Edit by Angeline Cardoso CMA on 08/03/24 09:37 UA Specific [place] 1.015 Last Edit by Angeline Cardoso CMA on 08/03/24 09:37 UA Ketone Negative Last Edit by Angeline Cardoso CMA on 08/03/24 09:37 UA Bilirubin 0 mg/dL Last Edit by Angeline Cardoso CMA on 08/03/24 09:37 UA Glucose 30 mg/dL Last Edit by Angeline Cardoso CMA on 08/03/24 09:37 Results Reviewed Results Reviewed: Laboratory Last Values Urine pH (Auto) 6.0 08/03/24 09:22 Specific [place] (Auto) 1.015 08/03/24 09:22 Urine Protein (Auto) 0.3 mg/dL 08/03/24 09:22 Glucose (UA)(Auto) 30 mg/dL 08/03/24 09:22 Urine Ketones (Auto) Negative 08/03/24 09:22 Urine Blood (Auto) 80 Demetrius/uL 08/03/24 09:22 Urine Nitrite (Auto) Negative 08/03/24 09:22 Urine Bilirubin (Auto) 0 mg/dL 08/03/24 09:22 Urine Urobilinogen (Auto) 3.5 mg/dL 08/03/24 09:22 Leukocyte Esterase (Auto) 500 Ezra/uL 08/03/24 09:22 Date of Service: 06/14/24 CLINICAL HISTORY: R31.9 - Hematuria, unspecified CT abdomen and pelvis without/with contrast Comparison: None Findings: Lung bases clear. No acute bony abnormalities. Degenerative change lumbar spine and hips. Liver and spleen within normal limits. Pancreas and adrenal glands unremarkable. Cholelithiasis without gallbladder distention. Heterogeneous irregular trabeculated bladder wall. Bladder wall thickening noted, greater on the left. Bladder wall thickening also more prominent anteriorly. Differential includes acute cystitis as well as mass. Left hydronephrosis and ureteral dilation noted. No left ureteral stone noted. No focal bilateral renal abnormality. No right hydronephrosis or renal stone. Abdominal aorta is normal in caliber. No free fluid or adenopathy in the pelvis. No diverticulitis. Appendix unremarkable. Impression: Left hydronephrosis and ureteral dilation without stone Heterogeneous bladder wall thickening with adjacent stranding Bladder mass is not excludable Pattern may indicate acute cystitis as well Assessment & Plan Assessment & Plan (1) BPH loc w urin obs/LUTS: Code(s): N40.1 - Benign prostatic hyperplasia with lower urinary tract symptoms Category: Medical (2) Hematuria: Code(s): R31.9 - Hematuria, unspecified Category: Medical (3) Bladder wall thickening: Code(s): N32.89 - Other specified disorders of bladder Category: Medical (4) Hydronephrosis, left: Code(s): N13.30 - Unspecified hydronephrosis Category: Medical (5) Hydroureter, left: Code(s): N13.4 - Hydroureter Category: Medical Plan Plan - Schedule a cystoscopy bladder biopsy left retrograde, possible left ureteral stent - Initiate Flomax in the evening and finasteride in the daytime for prostate man agement. - Continue monitoring for any changes in urinary symptoms and follow up as needed. Orders: Orders AMB Urinalysis Automated 08/03/24 R31.9 - Hematuria, unspecified Urine Culture 08/03/24 R31.9 - Hematuria, unspecified AMB Cystoscopy 08/03/24 R31.9 - Hematuria, unspecified, R32 - Unspecified urinary incontinence, R30.0 - Dysuria, N32.89 - Other specified disorders of bladder, N40.1 - Benign prostatic hyperplasia with lower urinary tract symptoms Medications: New finasteride (Proscar) 5 mg PO DAILY 30 tabs 3RF tamsulosin (Flomax) 0.4 mg PO BEDTIME 30 caps 3RF Patient Instructions: The patient had an opportunity to ask questions regarding treatment plan. The patient expressed understanding and agreement with the above treatment plan. The patient is aware they should contact our office by phone for worsening of their current condition or the appearance of new symptoms. Compliance is encouraged with any medications and followup testing that is ordered. It is a privilege to be allowed the opportunity to participate in the urologic care of your patient. If you have any questions or concerns regarding treatment for the above conditions please do not hesitate to contact me. The office telephone contact is [phone]. This note is constructed in part using voice recognition software. While every effort has been made to ensure accuracy wrapping machine operator errors may have been included. Yours sincerely, Sonia Rojas MD Scribe Plan - Not visible on output: Patient was informed and verbally consented to the use of an ambient scribe for clinic note documentation during this visit. Coding Level of Care Code Est Pt Level 4 (58470) Diagnoses BPH loc w urin obs/LUTS N40.1 Hematuria R31.9 Bladder wall thickening N32.89 Hydronephrosis, left N13.30 Hydroureter, left N13.4 CPT Codes Cystoscopy - CPT: 49378-[id number] ([id number])
--- OUTSIDE RECORDS SUMMARY | 2024-08-03 09:33 | XMS_ITS | Clinical Summary ---
Author Organization 175 [facility] Address [address] [place] [address] Phone Care Team Providers Care Video Game Developer Name Role Phone Jos Pineda MD Primary Care Provider [phone] Allergies No known active allergies Medications senna-docusate [...] 350-400: 6 units Greater than 400, call ky. 02/07/20 24 Active Lantus Solostar U-100 Insulin [...] (two) times a day. 30 g 3 07/28/19 25 025 Active Active Problems Problem Noted Date Diagnosed Date Type 2 diabetes mellitus wit h diabetic neuropathy, unspecified ([facility] V24, [facility] V28) 01/28/2024 Essential (primary) hypertension 01/28/2024 Schizoaffective disorder, un specified ([facility] V24, [facility] V28) 01/28/2024 Gastro-esophageal reflux disease without esophag itis 01/28/2024 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 It seems to be more throat that esophagus. We will send the patient for a barium swallow and set up to see ENT Atrioventricular block, complete ([facility] V24, C [place]/[facility] V28) 06/07/2020 Overview (11/22/2023): Last [...] Coronary artery disease 05/23/2019 Overview (11/22/2023): Old SD 1995 at age 45 Last Assessment & Plan: Previous history of myocardial infarction. No residual ischemia on stress testing. History nonsustained V. tach in the past no further episodes identified on monitor. Recent episode of weakness no indication of being cardiac. GERD (gastroesophageal reflux disease) 0 Lactose intolerance 05/23/2019 Diabetes mellitus type 2, un complicated ([facility] V24, [facility] V28) 05/13/2017 Assessment & Plan (03/01/2024 10:40 [...] under control on lisinopril and amlodipine. Schizophrenia ([facility] V24, [facility] V28) 018 Overview (11/22/2023): [facility] admit 06/2012 Sacral wound 03/30/2017 Pulmonary nodules/lesions, multiple 09/04/2014 Dermatophytosis of nail 01/26/2013 Assessment & Plan (03/01/2024 10:40 AM EST): Orders: Ambulatory referral to Podiatry; Future Encounters Date Type Department Care Team Description 07/27/2024 8:45 AM EDT Office Visit Orthopedic Surgery - [place] [address] [address] Sravan Jimenez, DPM Metatarsalgia of both feet (Primary Dx); Dermatophytosis of nail; Tinea pedis of both feet; Corns and callosities; Pain in toe of right foot; Pain in toe of left foot; Diabetic mononeuropathy simplex ([facility] V24, [facility] V28); Type II diabetes mellitus with peripheral circulatory disorder ([facility] V24, [facility] V28); Acquired hammer toe of right foot; Hammer toe of left foot 06/14/2024 Telephone Internal Medicine [facility] 175 [facility] [address] [place] [phone] Nohelia Melo MA Request For Order(s) ([facility]/) 05/24/2024 Telephone Internal Medicine [facility] [address] [facility] [address] [place] [phone] Jos Pineda MD 05/24/2024 Telephone Internal Medicine [facility] [address] [facility] [address] [place] [phone] Nohelia Melo MA Request For Order(s) ([facility] Care Cert 04/27/24-06/25/24/) 05/23/2024 Telephone Internal Medicine [facility] [address] [facility] [address] [place] [phone] Nohelia Melo MA Request For Order(s) ([facility] - 164K/) 05/08/2024 Telephone Orthopedic Surgery [facility] [address] [facility] [address] [place] [address] Sravan Jimenez, DPM Med Refill 05/05/2024 3:40 PM EDT Office Visit [address] [phone] Kylee Rueda PA Type 2 diabetes mellitus without complication, with long-term current use of insulin ([facility] V24, [facility] V28) (Primary Dx); Primary hypertension; Hyperlipidemia, unspecified hyperlipidemia type from Last 3 Months Immunizations Name Administration [...] HISTORICAL CATARACT REMOVAL OTHER SURGICAL HISTORY PROCEDURE: FL BIOPSY TESTIS INCISIONAL SEPARATE PROCEDURE Medical History Medical History Date Comments History of encephalopathy 04/14/2017 DX:His tory of encephalopathy History of rhabdomyolysis 04/14/2017 DX:His tory of rhabdomyolysis Hyperlipidemia 05/13/2017 DX:Hyperlipidemi a Hypertension 05/13/2017 DX:Hypertension Dermatophytosis of nail 01/26/2013 DX:[place] tophytosis of nail S/P placement of cardiac pacemaker 05/13/2017 DX:S/P placement of cardiac pacemaker; COMMENT: Comments: 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 Schizophrenia ([facility] V24, [facility] V28) 05/13/2017 DX:Schizophrenia ([facility]) Pulmonary nodules/lesions, multiple 09/04/2014 DX:Pulmonary nodules/lesions, multiple Diabetes mellitus type 2, uncomplicated ([facility] V24, [facility] V28) 05/13/2017 DX:Diabetes mellitus type 2, uncomplicated ([facility]) Sacral wound 03/30/2017 DX:Sacral wound Coronary artery disease 05/23/2019 DX:Coron timur artery disease; COMMENT: Old [place] 1995 GERD (gastroesophageal reflux disease) 0 DX:GERD [...] 68 05/05/2024 3:33 PM EDT Temperature 36.1 C (97 F) 05/05/2024 3:33 PM EDT Respiratory Rate 16 [...] Care Team (Late st Contact Info) Description 08/30/2024 8:30 AM EDT Office Visit Internal Medicine - [place] 175 [facility] [address] [place] [address] Jos Pineda MD 175 [facility] [address] [place] [address] 09/26/2024 8:15 AM EDT Office Visit Orthopedic Surgery - [place] [address] [facility] [address] [place] [phone] Sravan Jimenez DPM 175 [facility] [address] [place] [address] 10/11/2024 10:30 AM EDT Ancillary Procedure [facility] [address] [facility] [address] [place] [address] 12/11/2024 3:40 PM EDT Office Visit Endocrinology [facility] [address] [place] [address] Kylee Rueda PA [address] [place] [address] Health Maintenance Due Date Last Done Comments [...] Associated Diagnosis Comments EXTERNAL CLINICAL LAB 05/25/2024 MICROALBUMIN CREATININE URINE RATIO Routine 02/07/2024 12:18 PM EST Type 2 diabetes mellitus without complication, with long-term current use of insulin ([facility] V24, [facility] V28) BASIC METABOLIC PANEL Routine 02/07/2024 12:18 PM EST Type 2 diabetes mellitus without complication, with long-term current use of insulin ([facility] V24, [facility] V28) HEMOGLOBIN A1C Routine 02/07/2024 12:18 PM EST Type 2 diabetes mellitus without complication, with long-term current use of insulin ([facility] V24, [facility] V28) HM COLONOSCOPY Routine 10/26/2023 LIPID PANEL Routine 09/16/2022 from Last 3 Months or Most Recently Relevant to Health Maintenance Results * External clinical lab (05/25/2024) Provider [facility] LAB BLOOD ORDERABLES Fin al Result * (ABNORMAL) Microalbumin creatinine urine ratio (02/07/2024 12:18 PM EST) Creatinine, Urine 41.0 mg/dL LAB CHEMISTRY METHOD 02/07/2024 3:00 PM [facility] Microalb, Ur 29.6(H) 0.0 - 29.0 mg/L LAB CHEMISTRY METHOD 02/07/2024 3:00 PM [facility] Microalb/Crea t Ratio 72(H) <30 mg/g creat LAB CHEMISTRY METHOD 02/07/2024 3:00 PM [facility] Urine Urine specimen obtained by clean catch procedure / Unknown Non-blood Collection / Unknown 02/07/2024 12:18 PM EST 02/07/2024 12:18 PM EST us Kylee [facility] LAB URINE ORDERABLES Final Resul t Performing Organization Address City/[facility]/ZIP Co de Phone Number [facility] [address] [place] [address], [place] [phone] * (ABNORMAL) Hemoglobin A1c (02/07/2024 12:18 PM EST) Pathologist [facility] Hemoglobin A1C 8.0(H) <6.5 % LAB CHEMISTRY METHOD 02/07/2024 2:27 PM [facility] Mean Bld Glu Estim. 183 mg/dL LAB CHEMISTRY METHOD 02/07/2024 2:27 PM [facility] Blood Venous blood specimen / Unknown Venipuncture / Unknown 02/07/2024 12:18 PM EST 02/07/2024 12:18 PM EST us Kylee [facility] LAB BLOOD ORDERABLES Final Resul t Performing Organization Address [facility]/ZIP Co de Phone Number [facility] [address] [place] [address], [place] [phone] * (ABNORMAL) Basic metabolic panel (02/07/2024 12:18 PM EST) Pathologist [facility] Sodium 137 133 - 145 mmol/L LAB CHEMISTRY METHOD 02/07/2024 5:07 PM [facility] Potassium 4.3 3.5 - 5.5 mmol/L LAB CHEMISTRY METHOD 02/07/2024 5:07 PM [facility] Chloride 101 96 - 110 mmol/L LAB CHEMISTRY METHOD 02/07/2024 5:07 PM [facility] CO2 31 21 - 32 mmol/L LAB CHEMISTRY METHOD 02/07/2024 5:07 PM [facility] Anion Gap 5 3 - 11 LAB CHEMISTRY METHOD 02/07/2024 5:07 PM [facility] Glucose 208(H) 70 - 100 mg/dL LAB CHEMISTRY METHOD 02/07/2024 5:07 PM [facility] BUN 10 5 - 25 mg/dL LAB CHEMISTRY METHOD 02/07/2024 5:07 PM [facility] Creatinine 0.73 0.70 - 1.30 mg/dL LAB CHEMISTRY METHOD 02/07/2024 5:07 PM [facility] eGFR 97 >=60 mL/min/1. 73m2 LAB CHEMISTRY METHOD 02/07/2024 5:07 PM [facility] Comment:Calculation based on the Chronic Kidney Disease Epidemiology Collaboration (CKD-EPI) equation refit without adjustment for race. BUN/Creatinine Ratio 13.7 LAB CHEMISTRY METHOD 02/07/2024 5:07 PM [facility] Calcium 9.1 8.5 - 10.5 mg/dL LAB CHEMISTRY METHOD 02/07/2024 5:07 PM [facility] Blood Venous blood specimen / Unknown Venipuncture / Unknown 02/07/2024 12:18 PM EST 02/07/2024 12:18 PM EST Kylee [facility] LAB BLOOD ORDERABLES Final Resul t [facility] [address] [place] [address], * Colonoscopy (10/26/2023) Colonoscopy no interpretation , abstracted Anatomical Region Laterality Modality Other Historical Provider MD HEALTH MAINTENANCE Final Result * (ABNORMAL) Lipid [...] Documents on File Type Date Recorded 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
== END 2024-08-03 10:57 | disposition home or self-care (01) ==
LOC: HO.HUSH 08:58
PROVIDERS: PCP Internal Medicine; Visit Provider Urology
DX: N40.1 Benign prostatic hyperplasia with lower urinary tract symptoms (principal); R31.9 Hematuria, unspecified; R32 Unspecified urinary incontinence; R30.0 Dysuria; N32.89 Other specified disorders of bladder
CPT/HCPCS: 52000; 99214

== ENCOUNTER 2024-09-12 05:35 | Day surgery (SDC) | payer OTHER, SELFPAY ==
--- OUTSIDE RECORDS SUMMARY | 2024-08-09 13:59 | XMS_ITS | Clinical Summary ---
Author Organization 175 [facility] Address [address] [place] [address] Phone Care Team Providers Care Production Planning Supervisor Name Role Phone Jos Pineda MD Primary Care Provider [phone] Allergies No known active allergies Medications senna-docusate [...] 350-400: 6 units Greater than 400, call vt. 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 It seems to be more throat that esophagus. We will send the patient for a barium swallow and set up to see ENT Atrioventricular block, complete ([facility] V24, [facility] V28) 06/07/2020 Overview (11/22/2023): Last Assessment [...] Coronary artery disease 05/23/2019 Overview (11/22/2023): Old SC 1995 at age 45 Last Assessment & Plan: Previous history of myocardial infarction. No residual ischemia on stress testing. History nonsustained V. tach in the past no further episodes identified on monitor. Recent episode of weakness no indication of being cardiac. GERD (gastroesophageal reflux disease) 0 Lactose intolerance 05/23/2019 Diabetes mellitus type 2, un complicated ([facility], [facility] V[facility]) 05/13/2017 Assessment & Plan (03/01/2024 10:40 [...] under control on lisinopril and amlodipine. Schizophrenia ([facility] V[facility], [facility] V28) 018 Overview (11/22/2023): [facility] admit 06/2012 Sacral wound 03/30/2017 Pulmonary nodules/lesions, multiple 09/04/2014 Dermatophytosis of nail 01/26/2013 Assessment & Plan (03/01/2024 10:40 AM EST): Orders: Ambulatory referral to Podiatry; Future Encounters Date Type Department Care Team Description 08/09/2024 [facility] [address] [address] Jos Pineda MD 08/09/2024 [facility] [address] [address] Jos Pineda MD [facility] 08/09/[address] [address] Jos Pineda MD Pre-op Exam 08/08/2024 Telephone Internal [address] [place] [address] Lana Madrid [place] 07/27/2024 8:45 AM EDT Office Visit Orthopedic Surgery [facility] 250 175 [facility] 250 [place] [phone] Sravan Jimenez, DPM Metatarsalgia of both feet (Primary Dx); Dermatophytosis of nail; Tinea pedis of both feet; Corns and callosities; Pain in toe of right foot; Pain in toe of left foot; Diabetic mononeuropathy simplex ([facility] V24, [facility] V28); Type II diabetes mellitus with peripheral circulatory disorder ([facility] V24, [facility] V28); Acquired hammer toe of right foot; Hammer toe of left foot 06/14/[address] [facility] [address] [phone] Nohelia Melo [place] Request For Order(s) ([facility] Care - A1VA/) 05/24/[address] [facility] [address] [address] Jos Pineda MD 05/24/[address] [facility] [address] [address] Nohelia Melo [place] Request For Order(s) ([facility] Health Care Cert 04/27/24-06/25/24/) 05/23/[address] [facility] [address] [address] Nohelia Melo [place] Request For Order(s) ([facility] Care - 164K/) from Last 3 Months Immunizations Name Administration [...] HISTORICAL CATARACT REMOVAL OTHER SURGICAL HISTORY PROCEDURE: IA BIOPSY TESTIS INCISIONAL SEPARATE PROCEDURE Medical History Medical History Date Comments History of encephalopathy 04/14/2017 DX:His tory of encephalopathy History of rhabdomyolysis 04/14/2017 DX:His tory of rhabdomyolysis Hyperlipidemia 05/13/2017 DX:Hyperlipidemi a Hypertension 05/13/2017 DX:Hypertension Dermatophytosis of nail 01/26/2013 DX:[place] tophytosis of nail S/P placement of cardiac pacemaker 05/13/2017 DX:S/P placement of cardiac pacemaker; COMMENT: Comments: 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 Schizophrenia ([facility] V24, [facility] V28) 05/13/2017 DX:Schizophrenia (HCC) Pulmonary nodules/lesions, multiple 09/04/2014 DX:Pulmonary nodules/lesions, multiple Diabetes mellitus type 2, uncomplicated ([facility] V24, [facility] V28) 05/13/2017 DX:Diabetes mellitus type 2, uncomplicated ([facility]) Sacral wound 03/30/2017 DX:Sacral wound Coronary artery disease 05/23/2019 DX:Coron timur artery disease; COMMENT: Old SC 1995 GERD (gastroesophageal reflux disease) 0 DX:GERD [...] Care Team (Late st Contact Info) Description 08/21/2024 1:30 PM EDT Office Visit Internal Medicine - [place] 175 [facility] 200 [place] [phone] Jos Pineda MD 175 [facility] 200 [place] [address] 08/24/2024 10:00 AM EDT Consult Internal Medicine - [place] 175 [facility] 200 [place] [phone] Jos Pineda MD 175 [facility] 200 [place] [address] 09/26/2024 8:15 AM EDT Office Visit Orthopedic Surgery - [place] 250 175 [facility] 250 [place] [phone] Sravan Jimenez, DPElisha 175 [facility] 250 [place] [address] 10/11/2024 10:30 AM EDT Ancillary Procedure [facility] - [facility] 154 300 [facility] 154 [place] [phone] 12/11/2024 3:40 PM EDT Office Visit Endocrinology - [place] [address] [place] [address] Kylee Rueda PA [address] [place] [address] Health Maintenance Due Date Last Done Comments [...] complication, with long-term current use of insulin ([facility] V24, [facility] V28) BASIC METABOLIC PANEL Routine 02/07/2024 12:18 PM EST Type 2 diabetes mellitus without complication, with long-term current use of insulin ([facility] V24, [facility] V28) HEMOGLOBIN A1C Routine 02/07/2024 12:18 PM EST Type 2 diabetes mellitus without complication, with long-term current use of insulin ([facility] V24, [facility] V28) HM COLONOSCOPY Routine 10/26/2023 LIPID PANEL Routine 09/16/2022 from Last 3 Months or Most Recently Relevant to Health Maintenance Results * External clinical lab (05/25/2024) us Provider [facility] LAB BLOOD ORDERABLES Fin al Result * (ABNORMAL) Microalbumin creatinine urine ratio (02/07/2024 12:18 PM EST) Creatinine, Urine 41.0 mg/dL LAB CHEMISTRY METHOD 02/07/2024 3:00 PM EST [facility] Microalb, Ur 29.6(H) 0.0 - 29.0 mg/L LAB CHEMISTRY METHOD 02/07/2024 3:00 PM EST [facility] Microalb/Crea t Ratio 72(H) <30 mg/g creat LAB CHEMISTRY METHOD 02/07/2024 3:00 PM EST [facility] Urine Urine specimen obtained by clean catch procedure / Unknown Non-blood Collection / Unknown 02/07/2024 12:18 PM EST 02/07/2024 12:18 PM EST [facility] LAB URINE ORDERABLES Final Resul t Performing Organization Address [facility]/ZIP Co de Phone Number [facility] [address] [place] [address], [place] [phone] * (ABNORMAL) Hemoglobin A1c (02/07/2024 12:18 PM EST) Hemoglobin A1C 8.0(H) <6.5 % LAB CHEMISTRY METHOD 02/07/2024 2:27 PM EST [facility] Mean Bld Glu Estim. 183 mg/dL LAB CHEMISTRY METHOD 02/07/2024 2:27 PM EST [facility] Blood Venous blood specimen / Unknown Venipuncture / Unknown 02/07/2024 12:18 PM EST 02/07/2024 12:18 PM EST us Kylee [facility] LAB BLOOD ORDERABLES Final Resul t [facility] [address] [place] [address], [place] [phone] * (ABNORMAL) Basic metabolic panel (02/07/2024 12:18 PM EST) Sodium 137 133 - 145 mmol/L LAB CHEMISTRY METHOD 02/07/2024 5:07 PM EST [facility] Potassium 4.3 3.5 - 5.5 [...] Resul t [facility] [address] [place] [address], [place] [phone] * Colonoscopy (10/26/2023) Colonoscopy no interpretation , [...] Documents on File Type Date Recorded 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
--- NOTE | 2024-09-11 10:02 | HO.ANESPROP2 ---
Documented by User: Sybil Pizarro NP 09/11/24 10:23 HPI - Anesthesia Eval Consult details Narrative: 74yo M for Cystoscopy & Bladder Biopsy,possible TURb,Left Retrograde with possible stent [facility] admit 08/24-08/26/24 with dizziness, fall, orthostatic hypotn, UTI (previous admit 07/2024 with UTI, AMS) Medically optimized for Uro procedure per PCP at discharge f/u visit HB s/p PPM: Per [facility] discharge summary, pacer was interrogated during admit without any significant findings. Last outpatient interrogation 03/2024 was nml PMFSH Active Problems Active Problems: All Active Problems Hydroureter, left (Acute) Hydronephrosis, left (Acute) Bladder wall thickening (Acute) Hematuria (Acute) Dysuria (Acute) BPH loc w urin obs/LUTS (Acute) Urinary incontinence (Acute) Scrotal swelling (Acute) Past Medical History Medical History (Updated 09/11/24 @ 10:21 by Sybil Pizarro NP) Complete heart block Schizoaffective disorder Pacemaker Diabetes HLD (hyperlipidemia) HTN (hypertension) Social History Social History Are you a primary manager of care to a significant other at home: No Do you presently have visiting nurse or other home services: No Patient Tobacco Use Status: Current everyday Tobacco user Tobacco use type: Cigarette Cigarette Packs Per Day: 0.5 Cigarettes Per Day: 10.0 Second Hand Smoke Exposure: No Use of substances other than those prescribed or required for medical reasons: No Have you been hit, kicked, punched, or otherwise hurt by someone within the past year? If so, by whom?: No Are you DNR?: No Advance Directives: No Advance Directives Information Provided: Yes Advance Directives on File: No Poor oral hygiene: Yes Meds Allergies Allergy/AdvReac Type Severity Reaction Status Date / Time No Known Allergies Allergy Verified 08/03/24 09:17 Home Medications ?Medication ?Instructions ?Recorded ?Confirmed ?Last Taken ?Type amlodipine 5 mg tablet 5 mg PO DAILY 02/24/24 08/03/24 Unknown History aspirin 81 mg chewable tablet 1 tab PO DAILY 02/24/24 08/03/24 Unknown History divalproex 250 mg tablet,delayed 250 mg PO BID 02/24/24 08/03/24 Unknown History release divalproex 500 mg tablet,delayed 500 mg PO BID 02/24/24 08/03/24 Unknown History release insulin glargine 100 unit/mL (3 unit subcut 02/24/24 08/03/24 Unknown History mL) subcutaneous pen (Lantus Solostar U-100 Insulin) lisinopril 2.5 mg tablet 2.5 mg PO DAILY 02/24/24 08/03/24 Unknown History magnesium oxide 400 mg (241.3 mg 400 mg PO DAILY 02/24/24 08/03/24 Unknown History magnesium) tablet metformin 1,000 mg tablet 1,000 mg PO BID 02/24/24 08/03/24 Unknown History olanzapine 10 mg tablet 10 mg PO BEDTIME 02/24/24 08/03/24 Unknown History risperidone 2 mg disintegrating 2 mg PO BID 02/24/24 08/03/24 Unknown History tablet sennosides 8.6 mg-docusate sodium 1 tab PO DAILY 02/24/24 08/03/24 Unknown History 50 mg tablet (Senexon-S) metoprolol succinate 25 mg 25 mg PO DAILY 08/03/24 08/03/24 Unknown History tablet,extended release 24 hr Exam Narrative Narrative: EKG 08/2024 Ventricular Rate: 88 BPM Atrial Rate: 88 BPM P-R Interval: 176 ms QRS Duration: 148 ms Q-T Interval: 400 ms QTC Calculation(Bazett): 484 ms P [place]: 94 degrees R [place]: 53 degrees T [place]: 102 degrees Normal sinus rhythm with sinus arrhythmia Left bundle branch block Abnormal ECG When compared with ECG of 04-Aug-2024 18:56, Premature atrial complexes are no longer Present QRS duration has decreased Confirmed by Ayaz No ([id number]) on 08/24/2024 2:02:54 PM Pacer interrogation 03/2024 IMPRESSION: Normal In-Office: No Events * Normal Device Function * Alerts or events: No sustained events noted * Battery: MOS, 3.10 yrs * Sensing, impedance and thresholds reviewed and tested * Presenting Rhythm: - COOLING TOWER TECHNICIAN 60 - 80's * Underlying Rhythm: VS 40's * Heart Rate Histograms reviewed * Pacing and Detection Parameters were evaluated Assessment and Plan Assessment Anesthesia Assessment: Chart Reviewed Documented by User: Kain Mcginnis MD 09/12/24 07:27 [facility] Past Medical History Medical History (Updated 09/11/24 @ 10:21 by Sybil Pizarro NP) Complete heart block Schizoaffective disorder Pacemaker Diabetes HLD (hyperlipidemia) HTN (hypertension) Family History Family history of problems with anesthesia: No Surgical History History of Problems with Anesthesia: No Social History Social History Are you a primary manager of care to a significant other at home: No Do you presently have visiting nurse or other home services: No Patient Tobacco Use Status: Current everyday Tobacco user Tobacco use type: Cigarette Cigarette Packs Per Day: 0.5 Cigarettes Per Day: 10.0 Second Hand Smoke Exposure: No Use of substances other than those prescribed or required for medical reasons: No Have you been hit, kicked, punched, or otherwise hurt by someone within the past year? If so, by whom?: No Are you DNR?: No Advance Directives: No Advance Directives Information Provided: Yes Advance Directives on File: No Poor oral hygiene: Yes Meds Allergies Allergy/AdvReac Type Severity Reaction Status Date / Time No Known Allergies Allergy Verified 08/03/24 09:17 Home Medications ?Medication ?Instructions ?Recorded ?Confirmed ?Last Taken ?Type amlodipine 5 mg tablet 5 mg PO DAILY 02/24/24 08/03/24 Unknown History aspirin 81 mg chewable tablet 1 tab PO DAILY 02/24/24 08/03/24 Unknown History divalproex 250 mg tablet,delayed 250 mg PO BID 02/24/24 08/03/24 Unknown History release divalproex 500 mg tablet,delayed 500 mg PO BID 02/24/24 08/03/24 Unknown History release insulin glargine 100 unit/mL (3 unit subcut 02/24/24 08/03/24 Unknown History mL) subcutaneous pen (Lantus Solostar U-100 Insulin) lisinopril 2.5 mg tablet 2.5 mg PO DAILY 02/24/24 08/03/24 Unknown History magnesium oxide 400 mg (241.3 mg 400 mg PO DAILY 02/24/24 08/03/24 Unknown History magnesium) tablet metformin 1,000 mg tablet 1,000 mg PO BID 02/24/24 08/03/24 Unknown History olanzapine 10 mg tablet 10 mg PO BEDTIME 02/24/24 08/03/24 Unknown History risperidone 2 mg disintegrating 2 mg PO BID 02/24/24 08/03/24 Unknown History tablet sennosides 8.6 mg-docusate sodium 1 tab PO DAILY 02/24/24 08/03/24 Unknown History 50 mg tablet (Senexon-S) metoprolol succinate 25 mg 25 mg PO DAILY 08/03/24 08/03/24 Unknown History tablet,extended release 24 hr Exam Airway Mallampati Class: II TM Dist: >3cm Neck ROM: Full Denture: Upper and Lower Heart: Paced. Underlying CHB. Lungs: ok Assessment and Plan Assessment Anesthesia Assessment: Anesthesia Plan Discussed Final Anesthetic Review Family History of Problems with Anesthesia: No History of Problems with Anesthesia: No NPO: Yes ASA Class: III Final Preanesthetic Review: No Changes in Pt Med Stat, Meds/Allgs Chart Reviewed, Consent Obtained/Reviewed and Anes Risks/Benef Reviewed Patient Risk: Intermediate Procedure Risk: Low Anesthetic Plan Anesthetic Plan: GA and Agree w/ Assess. and Plan Disposition: Standard PACU
[2024-09-12] VITALS (7 sets, daily range): BP systolic 118–157; BP diastolic 63–74; PULSE 60–62; RESP 16–18; TEMP 36.1; O2SAT 97; BMI 25.5
--- NOTE | ~2024-09-12 | FL_ITS ---
EXAMINATION: FL GUIDANCE ONLY HISTORY: left retrograde possible stent COMPARISON: Correlation is made with a CT of the abdomen and pelvis without contrast dated 06/14/2024. TECHNIQUE: Fluoroscopy time: 36 seconds. Cumulative Dose: 11.93 mGy. Images: 8. FINDINGS: Fluoroscopic spot films of the left abdomen demonstrate injection of the left ureter which is dilated. There is moderate left hydronephrosis. The final images demonstrate placement of a nephroureteral stent. FL/FL guidance in OR IMPRESSION: Fluoroscopy during procedure. Please see procedure report for additional information. Electronically signed by: Issa Burgos MD 09/12/2024 08:49 AM EDT
[2024-09-12] MEDS: Lactated Ringers 1,000 ML 100 ML IVCONT (06:40)
[2024-09-12 06:41] LABS: Glucose, Whole Blood 109 mg/dL (60-115)
--- NOTE | 2024-09-12 07:23 | MHC.SHP ---
Pre-Procedural Eval Section A - 24 Hr Update-Section A only Date of Service: 09/12/24 The patient is an INPATIENT: No The patient has been examined within 24 hours of the surgical procedure. The History & Physical has been completed within 30 days and I have reviewed it.: Yes Section B - Complete if H&P > 30 days Chief Complaint: Unspecified hydronephrosis, hematuria Allergies: Allergies Allergy/AdvReac Type Severity Reaction Status Date / Time No Known Allergies Allergy Verified 08/03/24 09:17 Plan Diagnosis/Plan: Unchanged I have reviewed the history and physical and performed a pertinent physical examination on my patient. No changes have occurred unless specified. cystoscopy, left retrograde, possible left ureteral stent, bladder biopsies, possible transurethral resection bladder tumor Time Spent With Patient Time: Total time managing care of this patient today ____ minutes.
--- NOTE | 2024-09-12 07:23 | W.PM.OPN ---
Operative Note Operative Note Date of Service: 09/12/24 Narrative: PreOperative Diagnosis:?? Left hydronephrosis, bladder wall thickening Post Operative Diagnosis:?? ?Left hydronephrosis, bladder wall thickening, erythematous lesion Procedure: Cystoscopy, left retrograde left stent insertion, size 6 Syrian by 22-32 Surgeon:?Dr Sonia Rojas Anesthesia:? General Findings: erythematous lesion- <2 cm Procedure: After informed consent was verified the patient was brought to the operating placed on the OR table in supine position.? General Anesthesia was administered per protocol.? The patient was placed in lithotomy position, prepped and draped in the usual sterile fashion.? Safety pause time-out and side of surgery confirmed.? Antibiotics confirmed. A 22 Syrian cystoscope was inserted transurethrally, the bulbous urethra was within normal limits. The prostatic urethra was obstructive, trilobar enlargement. The bladder was visualized.? There was significant bladder wall remodeling with trabeculations and cellule changes. The right ureteral orifice was easily visualized, the left ureteral orifice was noted along the trigone. The? left ureteric orifice was cannulated? a retrograde examination was performed, noting kinking of the distal ureter with significant dilation of the mid and proximal ureter with kinking at the proximal ureter as it joined the pelvis A guidewire was manipulated into the ureter and renal pelvis. A 6 fr by 22-32 cm ureteral stent was passed over the guide wire under fluoroscopic guidance. The guide wire was removed. Bladder biopsy was done from the left lateral wall flattened lesion. The Bugbee was used for hemostasis. The bladder was emptied.? The rigid cystoscope was removed. ? The patient tolerated the procedure well and was brought to the recovery room in stable condition. Complications: None EBL: minimal (<5 mL) Drains: Ureteral stent as dictated above, 20 Syrian Issa catheter
== END 2024-09-12 10:29 | disposition home or self-care (01) ==
PROVIDERS: PCP Internal Medicine; Visit Provider Urology
PROC: (CPT 52332; principal; 2024-09-12 07:30)
DX: N13.30 Unspecified hydronephrosis (principal); N32.9 Bladder disorder, unspecified; N32.89 Other specified disorders of bladder; N40.1 Benign prostatic hyperplasia with lower urinary tract symptoms; R31.9 Hematuria, unspecified; R30.0 Dysuria; N13.4 Hydroureter; R32 Unspecified urinary incontinence; I10 Essential (primary) hypertension; I44.2 Atrioventricular block, complete; Z95.0 Presence of cardiac pacemaker; E78.5 Hyperlipidemia, unspecified; E11.9 Type 2 diabetes mellitus without complications; F25.9 Schizoaffective disorder, unspecified; Z79.4 Long term (current) use of insulin; Z79.84 Long term (current) use of oral hypoglycemic drugs; Z79.82 Long term (current) use of aspirin; Z79.899 Other long term (current) drug therapy; F17.210 Nicotine dependence, cigarettes, uncomplicated
CPT/HCPCS: 52332; 82947; 87086; 87088; 88305; C1769; C2617; J0690; J2003; J2704; J3010; Q9967

== ENCOUNTER → 2024-09-12 05:35 | Outpatient (BNV) | payer OTHER, SELFPAY | PROVIDERS: PCP Internal Medicine; Visit Provider Urology | DX: N13.30 Unspecified hydronephrosis (principal) | CPT/HCPCS: 52332; 74420 ==

== ENCOUNTER 2024-09-18 07:29 | Outpatient (AMB) | payer OTHER, SELFPAY ==
--- OUTSIDE RECORDS SUMMARY | 2024-09-18 07:32 | XMS_ITS | Encounter Summary ---
Author Organization [facility] Address [address] [place] [address] Care Team Providers Care Analog Ic Design Architect Name Role Phone Jos Pineda MD Primary Care Provider Reason for Visit * Reason Onset Date Comments Hyperglycemia 08/30/2024 Encounter Details Date Type Department Care Team (Late st Contact Info) Description 08/30/2024 Telephone Internal Medicine - [place] [address] [place] [phone] Jos Pineda MD [address] [place] [address] Hyperglycemia Social History Tobacco Use Types Packs/Day Years [...] as of this encounter Progress Notes * Ysabel Langford RN - 08/30/2024 9:39 AM EDT Please advise on pt blood sugar. Call to [facility] # [phone], spoke to her Advised PCP asked for them to follow up with endo. * Maria M Gardner - 08/30/2024 9:18 AM EDT [facility] home care called and stated that the pt blood sugar was 388 today fasting and they would like to know if they can increase the lantus back to 40 units and start him back on the metformin. Please advise Cb# [phone] documented in this encounter Plan of Treatment Upcoming Encounters Date Type Department Care Team (Late st Contact Info) Description 09/19/2024 10:30 AM EDT Office Visit Internal Medicine - [place] [address] [address] Jos Pineda MD 175 [facility] 200 [place] [address] 09/20/2024 3:00 PM EDT Office Visit Endocrinology [address] [phone] Dina Guido PA [address] [place] [address] 09/26/2024 8:15 AM EDT Office Visit Orthopedic Surgery - [place] [address] [phone] Sravan Jimenez DPM 175 [facility] 250 [place] [address] 10/11/2024 10:30 AM EDT Ancillary Procedure [facility] - [facility] 154 300 [facility] 154 [place] [phone] 12/11/2024 3:40 PM EDT Office Visit Endocrinology [address] [phone] Kylee Rueda PA [address] [place] [address] documented as of this encounter Visit Diagnoses Not on filedocumented in this encounter Additional Health Concerns Assessment Noted Time PHQ-9 Depression Total Score: 2 03/01/19 25 9:22 AM EST A fall risk assessment has been complete d for the patient 03/01/2024 9:19 AM EST documented as of this encounter Care Teams Analog Ic Design Architect Relationship Specialty Start Date End Date Jos Pineda MD [address] [address] PCP - General Internal Medicine 12/17/17 documented as of this encounter
--- OUTSIDE RECORDS SUMMARY | 2024-09-18 07:32 | XMS_ITS | Clinical Summary ---
Author Organization [facility] Address [address] [place] [phone] Phone Care Team Providers Care Stand Grinder Name Role Phone Pcp, Unknown Primary Care Provider Unavailabl e Social History Tobacco Use Types Packs/Day Years Used Date Smoking Tobacco: Never Assessed Education Answer Date Recorded Are you interested in more education? Not on fidel e 12/18/2022 Are you concerned about learning? Not on file 12/18/2022 No 12/18/2022 No 12/18/2022 Digital Access Answer Date Recorded No 12/18/2022 No 12/18/2022 Reliable internet access at home? Not on file 12/18/2022 Device with a working camera? Not on file Comments Unknown Sex and Gender Information Value Date Recorded Sex Assigned at Not on file Legal Sex Female 8:53 AM EDT Gender Identity Not on file Sexual Orientation Not on file Plan of Treatment Health Maintenance Due Date Last Done Comments Adult Td,Tdap Booster 1951 LIPID PANEL 1951 DEPRESSION SCREENING 1963 SMOKING Hx and SMOKELESS TOB ACCO SCREENING 04/24/1964 HEPATITIS C SCREENING 04/24/1969 MAMMOGRAM 1991 COLOGUARD 04/24/1996 COLONOSCOPY 04/24/1996 COLORECTAL CANCER SCREENING 04/24/1996 FIT TEST 04/24/1996 FOBT 04/24/1996 SIGMOIDOSCOPY 04/24/1996 VIRTUAL COLONOSCOPY 04/24/1996 PNEUMOCOCCAL VACCINES (50+ y ears) (1 of 1 - PCV) 04/24/2001 ZOSTER VACCINES (1 of 2) 04/24/2001 OSTEOPOROSIS SCREENING INITI AL (ONE-TIME) 04/24/2016 COVID-19 VACCINE ( - 2023-2 5 season) 2023 RSV VACCINE (1 - 1-dose 75+ series) 04/24/2026 HEPATITIS A VACCINES Aged Out No long er eligible based on patient's age to complete this topic HIB VACCINES Aged Out No longer eligi ble based on patient's age to complete this topic MENINGOCOCCAL VACCINES (ACWY) Aged Out No longer eligible based on patient's age to complete this topic MENINGOCOCCAL VACCINES (B) Aged Out N o longer eligible based on patient's age to complete this topic Medical Devices Not on file Insurance [facility] MEDICARE REPLACEMENT [facility] MEDICARE REPLACEMENT [facility] MEDICARE REPLACEMENT [facility] MEDICARE REPLACEMENT [facility] MEDICARE REPLACEMENT [facility] MEDICARE REPLACEMENT Care Teams Stand Grinder Relationship Specialty Start Date End Date Pcp, Unknown PCP - General 10/05/22 Additional Source Comments The information contained in this document represents components of the legal health record. It is not the complete legal health record.[facility]
--- OUTSIDE RECORDS SUMMARY | 2024-09-18 07:32 | XMS_ITS | Clinical Summary ---
Author Organization [facility] Address [address] [place] [address] Care Team Providers Care Fireperson Name Role Phone Unavailable Primary Care Provider [...] (DEPAKOTE) [address] tabletIndications :Mood disorder ([facility] V24) Take 1 Tab by mouth once daily. Swallow whole. Do not crush or chew. 6 Active divalproex (DEPAKOTE ER) 500 mg 24 hr tabletIndications :Mood disorder ([facility] V24) Take 1 Tab by mouth nightly at bedtime. Swallow whole. Do not crush or chew. 6 Active risperiDONE (RISPERDAL) 2 mg tabletIndications :Mood disorder ([facility] V24) Take 1 Tab by mouth 2 (two) times daily. 6 Active OLANZapine (ZYPREXA) 15 mg tabletIndications :Mood disorder ([facility] V24) Take 1 Tab by mouth nightly at bedtime. 6 Active diphenhydrAMINE (BENADRYL) 50 mg tabletIndications :Insomnia due to other mental disorder Take 1 Tab by mouth nightly at bedtime as needed for sleep. 6 Active aspirin (ASPIRIN LOW DOSE) [address] tabletIndications :Diabetes mellitus type 2 in nonobese ([facility]) Take 1 Tab by mouth once daily. [...] injectionIndicati ons:Diabetes mellitus type 2 in nonobese ([facility]) Inject 80 Units into the skin once daily. 10 mL 6 Active liraglutide (VICTOZA) 0.6 mg/0.1 mL (18 mg/3 mL) injection penIndications:Di abetes mellitus type 2 in nonobese ([facility]) Inject 1.2 mg into the skin once [...] 80 08/23/2015 10:22 AM EDT Temperature 36.5 C (97.7 F) 08/23/2015 10:22 AM EDT Respiratory Rate 16 08/23/2015 10:22 AM EDT Oxygen Saturation - - Inhaled Oxygen Concentration - - Weight 94.8 kg (209 lb) 08/23/2015 10:22 AM EDT Height 186.7 cm (6' 1.5 ) 08/23/2015 10:22 AM ED T Body Mass Index 27.2 08/23/2015 10:22 AM EDT Plan of Treatment Not on file [place]
--- NOTE | 2024-09-18 07:34 | MHC.OFFVIS ---
Intake Visit Reasons: Bladder biopsy results Intake Note: Pt presents to the office today for biopsy results . 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 Plan FU renal US. 08/03/24--Here for office cystoscopy. Cystoscopy findings: prostatic urethra trilobar enlargement, bulbous urethra WNL, limited evaluation further evaluation with outpatient cysto, and bladder biopsy. Results - CT urogram on 06/14/24 showed persistent left hydronephrosis without ureteral stones. - Bladder wall thickening noted on imaging. Discussion Notes I discussed with the patient the findings of the CT urogram, which showed persistent left hydronephrosis and bladder wall thickening. We talked about the need for further evaluation, including a potential biopsy to assess the bladder wall thickening. I explained the procedure would be done in the hospital to ensure thorough examination and safety. We also reviewed the patient's current medications and discussed starting Flomax and finasteride for prostate management. 04/13/24--Koko is a 73-year-old male presenting for the follow-up of urinary system evaluations. An ultrasound has identified left kidney hydronephrosis, hydroureter and bladder wall thickening, suggestive of potential complication from Benign Prostatic Hyperplasia (BPH). His treatment history includes Finasteride, he states he stopped the tamsulosin because it caused him diarrhea. A PSA blood test showed normal results, 0.41 ng/mL. Today- hematuria on urinalysis, discussed further diagnostic plans including a CT urogram. Urinary Symptoms Review - Hematuria has been noted. Results - Labs: PSA level at 0.41 on March 07, 2024 - Imaging: Ultrasound results indicating hydronephrosis in the left kidney and thickening of the bladder wall. 02/24/24--Koko is a 73 year old male who is here for testicular pain and scrotal swelling. He states he had colonscopy, and then about 2-3 days later, there was swelling in the testicle he states he received a cream which improved the swelling and now his symptoms are resolved. He states it ibanez sometimes when he urinates. He wears pull ups. Exam--bilateral testicles, no swelling, nontender [facility] Medical History (Updated 09/19/24 @ 05:24 by Sonia Rojas MD) Complete heart block Schizoaffective disorder Pacemaker Diabetes HLD (hyperlipidemia) HTN (hypertension) Social History Are you a primary care associate to a significant other at home: No Do you presently have visiting nurse or other home services: No Patient Tobacco Use Status: Current everyday Tobacco user Tobacco use type: Cigarette Cigarette Packs Per Day: 0.5 Cigarettes Per Day: 10.0 Second Hand Smoke Exposure: No Review of Systems Const All systems reviewed & are unremarkable except as noted in HPI and below Reports no additional complaints Eyes Reports no additional complaints ENT Reports no additional complaints Card Reports no additional complaints Resp Reports no additional complaints GI Reports no additional complaints Reports as per HPI Musc Reports no additional complaints Skin/Breast Reports system reviewed and no additional complaints, except as documented Neuro Reports no additional complaints Psych Reports no additional complaints Endo Reports no additional complaints Vivek/Lymph Reports no additional complaints Aller/Immun Reports no additional complaints Office Procedures Bladder/Catheter Procedure Details: Patient presents to office for voiding trial s/p bladder biopsy procedure. 120mls sterile water instilled through catheter, patient tolerated well. Removed 20 fr angel catheter, patient tolerated removal well. Patient able to void approximately 120 mls. Bladder scanned for 98mls. Patient educated to drink plenty of water to ensure urine production throughout day. If patient has any issues with urination or cannot void to call office by 2pm. Patient to make follow up appointment at checkout with Dr. Ryder. 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 -Muscularis propria present. Clinical History Pre-Op Dx: Hydronephrosis Post-Op Dx: Left hydronephrosis, bladder lesion, wall thick Microscopic Description Microscopic sections reviewed. Material Received Left lateral bladder lesion Gross Description Received in formalin labeled ?left lateral bladder lesion? are three hyperemic and congested, ceballos, pink- red irregular tissue fragments ranging from 0.15-0.25 cm, submitted in toto in a cassette labeled Matt QUIROZS Date of Service: 06/14/24 CLINICAL HISTORY: R31.9 - Hematuria, unspecified CT abdomen and pelvis without/with contrast Comparison: None Findings: Lung bases clear. No acute bony abnormalities. Degenerative change lumbar spine and hips. Liver and spleen within normal limits. Pancreas and adrenal glands unremarkable. Cholelithiasis without gallbladder distention. Heterogeneous irregular trabeculated bladder wall. Bladder wall thickening noted, greater on the left. Bladder wall thickening also more prominent anteriorly. Differential includes acute cystitis as well as mass. Left hydronephrosis and ureteral dilation noted. No left ureteral stone noted. No focal bilateral renal abnormality. No right hydronephrosis or renal stone. Abdominal aorta is normal in caliber. No free fluid or adenopathy in the pelvis. No diverticulitis. Appendix unremarkable. Impression: Left hydronephrosis and ureteral dilation without stone Heterogeneous bladder wall thickening with adjacent stranding Bladder mass is not excludable Pattern may indicate acute cystitis as well Assessment & Plan Assessment & Plan (1) BPH loc w urin obs/LUTS: Code(s): N40.1 - Benign prostatic hyperplasia with lower urinary tract symptoms Category: Medical (2) Hematuria: Code(s): R31.9 - Hematuria, unspecified Category: Medical (3) Bladder wall thickening: Code(s): N32.89 - Other specified disorders of bladder Category: Medical (4) Hydronephrosis, left: Code(s): N13.30 - Unspecified hydronephrosis Category: Medical (5) Hydroureter, left: Code(s): N13.4 - Hydroureter Category: Medical (6) Ureteral stent present: Code(s): Z96.0 - Presence of urogenital implants Category: Medical Plan renal US Orders: Orders AMB Post Void Residual by ultrasound 09/18/24 N40.1 - Benign prostatic hyperplasia with lower urinary tract symptoms, N32.89 - Other specified disorders of bladder, R30.0 - Dysuria, R32 - Unspecified urinary incontinence, R31.9 - Hematuria, unspecified AMB Bladder/Catheter Procedure 09/18/24 R32 - Unspecified urinary incontinence, R30.0 - Dysuria, N32.89 - Other specified disorders of bladder, N40.1 - Benign prostatic hyperplasia with lower urinary tract symptoms Patient Instructions: This note is constructed using voice recognition software. While every effort has been made to ensure accuracy school psychologist errors may have been included. Coding Level of Care Code Est Pt Level 3 (31490) Complex EM visit Add On G2211 Diagnoses BPH loc w urin obs/LUTS N40.1 Hematuria R31.9 Bladder wall thickening N32.89 Hydronephrosis, left N13.30 Hydroureter, left N13.4 Ureteral stent present Z96.0 CPT Codes Bladder/Catheter Procedure - CPT: 43680-Abqkdlaeeg of Bladder ([id number]) Post Residual Void - PVR CPT Code: 94274-Cozs Void Residual by ultrasound ([id number])
== END 2024-09-18 08:13 | disposition home or self-care (01) ==
LOC: HO.HUSH 07:29
PROVIDERS: PCP Internal Medicine; Visit Provider Urology
DX: N32.89 Other specified disorders of bladder (principal); N40.1 Benign prostatic hyperplasia with lower urinary tract symptoms; R30.0 Dysuria; R31.9 Hematuria, unspecified; R32 Unspecified urinary incontinence
CPT/HCPCS: 51700; 99213; G2211

== ENCOUNTER → 2024-09-18 07:29 | Outpatient (BNVA) | payer OTHER, SELFPAY | PROVIDERS: PCP Internal Medicine; Visit Provider Urology | DX: Z71.2 Person consulting for explanation of examination or test findings (principal); N40.1 Benign prostatic hyperplasia with lower urinary tract symptoms; N32.89 Other specified disorders of bladder; R30.0 Dysuria; R32 Unspecified urinary incontinence | CPT/HCPCS: 51700; 51798; 99212 ==

== ENCOUNTER 2024-11-13 13:22 | Outpatient (REF) | payer OTHER, SELFPAY ==
--- NOTE | ~2024-11-13 | US_ITS ---
CLINICAL HISTORY: N13.30 - Unspecified hydronephrosis US renal Comparison: 03/30/2024 Findings: Right kidney 11.7 cm length. No significant focal abnormality. Subcentimeter lower pole cyst. Left kidney 11.5 cm length. Nephrocalcinosis of left kidney. No bilateral hydronephrosis. Normal bilateral renal echogenicity. Impression: Unilateral left nephrocalcinosis This document has been electronically signed by: Tariq Mora MD on 11/13/2024 21:18:26
--- OUTSIDE RECORDS SUMMARY | 2024-11-13 14:53 | XMS_ITS | Clinical Summary ---
Author Organization [facility] Address [address] [place] [address] Care Team Providers Care Ethnoarchaeology Professor Name Role Phone Unavailable Primary Care Provider [...] (DEPAKOTE) [address] tabletIndications :Mood disorder ([facility] V24) Take 1 Tab by mouth once daily. Swallow whole. Do not crush or chew. 6 Active divalproex (DEPAKOTE ER) 500 mg 24 hr tabletIndications :Mood disorder ([facility] V24) Take 1 Tab by mouth nightly at bedtime. Swallow whole. Do not crush or chew. 6 Active risperiDONE (RISPERDAL) 2 mg tabletIndications :Mood disorder ([facility] V24) Take 1 Tab by mouth 2 (two) times daily. 6 Active OLANZapine (ZYPREXA) 15 mg tabletIndications :Mood disorder ([facility] V24) Take 1 Tab by mouth nightly at bedtime. 6 Active diphenhydrAMINE (BENADRYL) 50 mg tabletIndications :Insomnia due to other mental disorder Take 1 Tab by mouth nightly at bedtime as needed for sleep. 6 Active aspirin (ASPIRIN LOW DOSE) [address] tabletIndications :Diabetes mellitus type 2 in nonobese ([facility]) Take 1 Tab by mouth once daily. [...] injectionIndicati ons:Diabetes mellitus type 2 in nonobese ([facility]) Inject 80 Units into the skin once daily. 10 mL 6 Active liraglutide (VICTOZA) 0.6 mg/0.1 mL (18 mg/3 mL) injection penIndications:Di abetes mellitus type 2 in nonobese ([facility]) Inject 1.2 mg into the skin [...] Treatment Not on file [place]
--- OUTSIDE RECORDS SUMMARY | 2024-11-13 14:53 | XMS_ITS | Clinical Summary ---
Author Organization [facility] Address [address] [place] [id number] Phone Care Team Providers Care Jewel Supervisor Name Role Phone Pcp, Unknown Primary Care [...] 04/24/2001 OSTEOPOROSIS SCREENING INITI AL (ONE-TIME) 04/24/2016 INFLUENZA VACCINE (#1) 2024 COVID-19 VACCINE (1 - 2023-2 5 season) 2024 RSV VACCINE (1 - 1-dose 75+ series) [...] topic Medical Devices Not on file Insurance [facility] MEDICARE REPLACEMENT [facility]IC[facility]IC[facility]IC[facility]PL[facility]EMENT [facility] MEDICARE REPLACEMENT [facility] MEDICARE REPLACEMENT Care Teams Jewel Supervisor Relationship Specialty Start Date End Date Pcp, Unknown PCP - General 10/05/22 Additional Source Comments The information contained in this document represents components of the legal health record. It is not the complete legal health record.[facility]
== END 2024-11-13 13:23 | disposition home or self-care (01) ==
LOC: HO.HMGCX 13:22
PROVIDERS: PCP Internal Medicine; Visit Provider Urology
DX: N13.30 Unspecified hydronephrosis (principal); Z96.0 Presence of urogenital implants
CPT/HCPCS: 76775

== ENCOUNTER → 2024-11-13 13:38 | Outpatient (BNV) | payer OTHER, SELFPAY | PROVIDERS: PCP Internal Medicine; Visit Provider Radiology Diagnostic Radiology | DX: N13.30 Unspecified hydronephrosis (principal) | CPT/HCPCS: 76775 ==

== ENCOUNTER 2024-11-16 12:29 | Outpatient (AMB) | payer OTHER, SELFPAY ==
--- NOTE | 2024-11-16 13:23 | A.OFFVIS_ITS ---
Intake Visit Reasons: 8w/US Intake Note: Patient presents to the office today for 8w/US * 11/13 Renal US Urology meds:Finastride,Tamsulosin Blood thinners:Aspirin Network And Threat Support Specialist Required: No Accompanied by: Self / Same As Patient Allergies No Known Allergies Allergy (Verified 11/16/24 13:25) HPI Comments Details: 11/16/24--Koko is a 74-year-old male who has been followed due to BPH symptoms. Workup included ultrasound which noted left hydronephrosis he is status post left ureteral stent placement. Follow-up today was 2 re-evaluate the kidneys and he had an ultrasound completed. History of Present Illness The patient is a 74-year-old male presenting with a follow-up for kidney evaluation and ureteral stent status. He has a history of Benign Prostatic Hyperplasia (BPH) with symptoms that have been managed over time. A CT Urogram previously noted left hydronephrosis, leading to the placement of a left ureteral stent on September 12, 2024. A renal ultrasound conducted on November 13, 2024, showed left nephrocalcinosis with no hydronephrosis and normal bilateral echogenicity of the kidneys. The patient reports that the stent was removed by the staff, although there is no documentation of this in the notes. A KUB will be checked to confirm the presence of the ureteral stent, and follow-up will be scheduled for cystoscopy and potential stent removal if necessary. The patient's post-void residual bladder scan today showed 171 mL, and he continues on medications for prostate management, including finasteride and tamsulosin. Comorbid conditions include diabetes mellitus, for which he is on insulin and metformin therapy. Results - CT Urogram: Left hydronephrosis noted, leading to stent placement. - Renal ultrasound (11/13/24): Left nephrocalcinosis, no hydronephrosis - Post-void residual bladder scan: 171 mL. Plan 1. Benign Prostatic Hyperplasia (Bph) - Continue medications: Finasteride 5 mg daily, Tamsulosin 0.4 mg daily. 2. Left Hydronephrosis - KUB to confirm ureteral stent status. - Schedule follow-up for cystoscopy and potential stent removal if stent is in situ. 3. Nephrocalcinosis - Monitor renal function and follow-up as needed. 09/18/24-- Left hydro, S/p stent, bladder bx. 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 Plan FU renal US. 08/03/24--Here for office cystoscopy. Cystoscopy findings: prostatic urethra trilobar enlargement, bulbous urethra WNL, limited evaluation further evaluation with outpatient cysto, and bladder biopsy. Results - CT urogram on 06/14/24 showed persistent left hydronephrosis without ureteral stones. - Bladder wall thickening noted on imaging. Discussion Notes I discussed with the patient the findings of the CT urogram, which showed persistent left hydronephrosis and bladder wall thickening. We talked about the need for further evaluation, including a potential biopsy to assess the bladder wall thickening. I explained the procedure would be done in the hospital to ensure thorough examination and safety. We also reviewed the patient's current medications and discussed starting Flomax and finasteride for prostate management. 04/13/24--Koko is a 73-year-old male presenting for the follow-up of urinary system evaluations. An ultrasound has identified left kidney hydronephrosis, hydroureter and bladder wall thickening, suggestive of potential complication from Benign Prostatic Hyperplasia (BPH). His treatment history includes Finasteride, he states he stopped the tamsulosin because it caused him diarrhea. A PSA blood test showed normal results, 0.41 ng/mL. Today- hematuria on urinalysis, discussed further diagnostic plans including a CT urogram. Urinary Symptoms Review - Hematuria has been noted. Results - Labs: PSA level at 0.41 on March 07, 2024 - Imaging: Ultrasound results indicating hydronephrosis in the left kidney and thickening of the bladder wall. 02/24/24--Koko is a 73 year old male who is here for testicular pain and scrotal swelling. He states he had colonscopy, and then about 2-3 days later, there was swelling in the testicle he states he received a cream which improved the swelling and now his symptoms are resolved. He states it ibanez sometimes when he urinates. He wears pull ups. Exam--bilateral testicles, no swelling, nontender [facility] Medical History Complete heart block Schizoaffective disorder Pacemaker Diabetes HLD (hyperlipidemia) HTN (hypertension) Social History Are you a primary director long term care to a significant other at home: No Do you presently have visiting nurse or other home services: No Patient Tobacco Use Status: Current everyday Tobacco user Tobacco use type: Cigarette Cigarette Packs Per Day: 0.5 Cigarettes Per Day: 10.0 Second Hand Smoke Exposure: No Review of Systems Const All systems reviewed & are unremarkable except as noted in HPI and below Reports no additional complaints Eyes Reports no additional complaints ENT Reports no additional complaints Card Reports no additional complaints Resp Reports no additional complaints GI Reports no additional complaints Reports as per HPI Musc Reports no additional complaints Skin/Breast Reports system reviewed and no additional complaints, except as documented Neuro Reports no additional complaints Psych Reports no additional complaints Endo Reports no additional complaints Vivek/Lymph Reports no additional complaints Aller/Immun Reports no additional complaints Results Reviewed Results Reviewed: Date of Service: 11/13/24 Reason for Exam: N13.30 - Unspecified hydronephrosis US renal Comparison: 03/30/2024 Findings: Right kidney 11.7 cm length. No significant focal abnormality. Subcentimeter lower pole cyst. Left kidney 11.5 cm length. Nephrocalcinosis of left kidney. No bilateral hydronephrosis. Normal bilateral renal echogenicity. 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 -Muscularis propria present. Clinical History Pre-Op Dx: Hydronephrosis Post-Op Dx: Left hydronephrosis, bladder lesion, wall thick Microscopic Description Microscopic sections reviewed. Material Received Left lateral bladder lesion Gross Description Received in formalin labeled ?left lateral bladder lesion? are three hyperemic and congested, ceballos, pink- red irregular tissue fragments ranging from 0.15-0.25 cm, submitted in toto in a cassette labeled Matt QUIROZS Date of Service: 06/14/24 CLINICAL HISTORY: R31.9 - Hematuria, unspecified CT abdomen and pelvis without/with contrast Comparison: None Findings: Lung bases clear. No acute bony abnormalities. Degenerative change lumbar spine and hips. Liver and spleen within normal limits. Pancreas and adrenal glands unremarkable. Cholelithiasis without gallbladder distention. Heterogeneous irregular trabeculated bladder wall. Bladder wall thickening noted, greater on the left. Bladder wall thickening also more prominent anteriorly. Differential includes acute cystitis as well as mass. Left hydronephrosis and ureteral dilation noted. No left ureteral stone noted. No focal bilateral renal abnormality. No right hydronephrosis or renal stone. Abdominal aorta is normal in caliber. No free fluid or adenopathy in the pelvis. No diverticulitis. Appendix unremarkable. Impression: Left hydronephrosis and ureteral dilation without stone Heterogeneous bladder wall thickening with adjacent stranding Bladder mass is not excludable Pattern may indicate acute cystitis as well Assessment & Plan Assessment & Plan (1) Hydroureter, left: Code(s): N13.4 - Hydroureter Category: Medical (2) Nephrocalcinosis: Code(s): E83.59 - Other disorders of calcium metabolism; N29 - Other disorders of kidney and ureter in diseases classified elsewhere Category: Medical (3) BPH loc w urin obs/LUTS: Code(s): N40.1 - Benign prostatic hyperplasia with lower urinary tract symptoms Category: Medical (4) Hematuria: Code(s): R31.9 - Hematuria, unspecified Category: Medical (5) Bladder wall thickening: Code(s): N32.89 - Other specified disorders of bladder Category: Medical (6) Hydronephrosis, left: Code(s): N13.30 - Unspecified hydronephrosis Category: Medical (7) Ureteral stent present: Code(s): Z96.0 - Presence of urogenital implants Category: Medical Plan Plan 1. Benign Prostatic Hyperplasia (Bph) - Continue medications: Finasteride 5 mg daily, Tamsulosin 0.4 mg daily. 2. Left Hydronephrosis - KUB to confirm ureteral stent status. - Schedule follow-up for cystoscopy and potential stent removal if stent is in situ. 3. Nephrocalcinosis - Monitor renal function and follow-up as needed. Orders: Orders XR KUB Today E83.59 - Other disorders of calcium metabolism, N13.4 - Hydroureter, N29 - Other disorders of kidney and ureter in diseases classified elsewhere Patient Instructions: The patient had an opportunity to ask questions regarding treatment plan. The patient expressed understanding and agreement with the above treatment plan. The patient is aware they should contact our office by phone for worsening of their current condition or the appearance of new symptoms. Compliance is encouraged with any medications and followup testing that is ordered. It is a privilege to be allowed the opportunity to participate in the urologic care of your patient. If you have any questions or concerns regarding treatment for the above conditions please do not hesitate to contact me. The office telephone contact is [phone]. This note is constructed in part using voice recognition software. While every effort has been made to ensure accuracy order picker errors may have been included. Yours sincerely, Sonia Rojas MD Scribe Plan - Not visible on output: Patient was informed and verbally consented to the use of an ambient scribe for clinic note documentation during this visit. Coding Level of Care Code Est Pt Level 4 (58328) Diagnoses Hydroureter, left N13.4 Nephrocalcinosis E83.59; N29 BPH loc w urin obs/LUTS N40.1 Hematuria R31.9 Bladder wall thickening N32.89 Hydronephrosis, left N13.30 Ureteral stent present Z96.0
--- OUTSIDE RECORDS SUMMARY | 2024-11-16 13:59 | XMS_ITS | Encounter Summary ---
Author Organization [facility] Address [address] [place] [address] Care Team Providers Care Optometric Technician Name Role Phone Jos Pineda MD Primary Care Provider [phone] Reason for Visit * Reason Onset Date Comments Request For Order(s) 11/08/2024 [facility] Encounter Details Date Type Department Care Team (Late st Contact Info) Description 11/08/2024 Telephone Internal Medicine - [place] [address] [place] [address] Nohelia Melo MA Social History Tobacco Use Types Packs/Day Years [...] Progress Notes * Nohelia Melo MA - 11/13/2024 9:24 AM EDT Scanned into chart and faxed to [facility] [phone] * Nohelia Melo MA - 11/08/2024 9:26 AM EDT [facility] - C23X Please sign & fax [phone] documented in this encounter Plan of Treatment Upcoming Encounters Date Type Department Care Team (Late st Contact Info) Description 11/30/2024 8:45 AM EDT Office Visit Orthopedic Surgery - [place] [address] [facility] [address] [place] [address] Sravan Jimenez, DPM 175 [facility] [address] [place] [phone] 12/11/2024 3:30 PM EDT Office Visit Endocrinology [facility] [address] [place] [address] Kylee Rueda PA [address] [place] [address] 03/27/2025 3:00 PM EST Office Visit Internal Medicine - [place] 175 [facility] [address] [place] [address] Jos Pineda MD [address] [address] 04/23/2025 10:00 AM EDT Ancillary Procedure [facility] [address] [facility] [address] [place] [phone] documented as of this encounter Visit Diagnoses Not on filedocumented in this encounter Additional Health Concerns Assessment Noted Time PHQ-9 Depression Total Score: 2 03/01/19 9:22 AM EST A fall risk assessment has been complete d for the patient 03/01/2024 9:19 AM EST documented as of this encounter Care Teams Optometric Technician Relationship Specialty Start Date End Date Jos Pineda MD 175 [facility] 200 [place] [address] PCP - General Internal Medicine 12/17/17 documented as of this encounter
--- OUTSIDE RECORDS SUMMARY | 2024-11-16 13:59 | XMS_ITS | Encounter Summary ---
Author Organization [facility] Address [address] [place] [address] Care Team Providers Care Rn Lactation Name Role Phone Jos Pineda MD Primary Care Provider [phone] Reason for Visit * Reason Onset Date Comments Request For Order(s) 11/15/2024 Count includes the [facility] - D6 Encounter Details Date Type Department Care Team (Late st Contact Info) Description 11/15/2024 Telephone Internal Medicine - [place] [address] [place] [address] Nohelia Melo MA Social History [...] Progress Notes * Nohelia Melo MA - 11/16/2024 8:40 AM EDT Scanned into chart and faxed to [facility] [phone] * Nohelia Melo MA - 11/15/2024 6:12 AM EDT [facility] - D6 Please sign & fax [phone] documented in this encounter Plan of Treatment Upcoming Encounters Date Type Department Care Team (Late st Contact Info) Description 11/30/2024 8:45 AM EDT Office Visit Orthopedic Surgery - [place] [address] [facility] [address] [place] [address] Sravan Jimenez, DPElisha 175 [facility] [address] [place] [phone] 12/11/2024 3:30 PM EDT Office Visit Endocrinology - [place] [address] [place] [address] Kylee Rueda PA [address] [place] [address] 03/27/2025 3:00 PM EST Office Visit Internal Medicine - [place] 175 [facility] [address] [place] [address] Jos Pineda MD [address] [address] 04/23/2025 10:00 AM EDT Ancillary Procedure [facility] [address] [facility] [address] [place] [address] documented as of this encounter Visit Diagnoses Not on filedocumented in this encounter Additional Health Concerns Assessment Noted Time PHQ-9 Depression Total Score: 2 03/01/19 9:22 AM EST A fall risk assessment has been complete d for the patient 03/01/2024 9:19 AM EST documented as of this encounter Care Teams Rn Lactation Relationship Specialty Start Date End Date Jos Pineda MD 175 [facility] 200 [place] [address] PCP - General Internal Medicine 12/17/17 documented as of this encounter
--- OUTSIDE RECORDS SUMMARY | 2024-11-16 13:59 | XMS_ITS | Encounter Summary ---
Author Organization [facility] Address [address] [place] [address] Care Team Providers Care Engineering Designer Name Role Phone Jos Pineda MD Primary Care Provider [phone] Reason for Visit * Reason Onset Date Comments Request For Order(s) 11/15/2024 [facility] Care Cert 10/24/24-12/22/24 Encounter Details Date Type Department Care Team (Late st Contact Info) Description 11/15/2024 Telephone Internal Medicine - [place] [address] [place] [address] Nohelia Melo MA Social History [...] Notes * Nohelia Melo MA - 11/16/2024 9:06 AM EDT Scanned into chart and faxed to [facility] [phone] * Nohelia Melo MA - 11/15/2024 11:59 AM EDT [facility] Care Cert 10/24/24-12/22/24 Please sign & fax [phone] documented in this encounter Plan of Treatment Upcoming Encounters Date Type Department Care Team (Late st Contact Info) Description 11/30/2024 8:45 AM EDT Office Visit Orthopedic Surgery - [place] [address] [facility] 250 [place] [address] Sravan Jimenez DPElisha 175 [facility] [address] [place] [address] 12/11/2024 3:30 PM EDT Office Visit Endocrinology - [place] [address] [place] [address] Kylee Rueda PA 444 [place] [address] 03/27/2025 3:00 PM EST Office Visit Internal Medicine - [place] 175 [facility] 200 [place] [address] Jos Pineda MD 175 [facility] 200 [place] [address] 04/23/2025 10:00 AM EDT Ancillary Procedure [facility] [address] [facility] 154 [place] [address] documented as of this encounter Visit Diagnoses Not on filedocumented in this encounter Additional Health Concerns Assessment Noted Time PHQ-9 Depression Total Score: 2 03/01/19 9:22 AM EST A fall risk assessment has been complete d for the patient 03/01/2024 9:19 AM EST documented as of this encounter Care Teams Engineering Designer Relationship Specialty Start Date End Date Jos Pineda MD 175 [facility] 200 [place] [address] PCP - General Internal Medicine 12/17/17 documented as of this encounter
--- OUTSIDE RECORDS SUMMARY | 2024-11-16 13:59 | XMS_ITS | Clinical Summary ---
Author Organization [facility] Address [address] [facility] [address] [place] [address] Phone Care Team Providers Care House Manager Name Role Phone Pcp, Unknown Primary Care [...] 04/24/2016 INFLUENZA VACCINE (#1) 2024 COVID-19 VACCINE ( - 2023-2 5 season) 2024 RSV VACCINE [...] topic Medical Devices Not on file Insurance [facility] MEDICARE REPLACEMENT [facility] MEDICARE REPLACEMENT [facility] MEDICARE REPLACEMENT [facility] MEDICARE REPLACEMENT [facility] MEDICARE REPLACEMENT [facility] MEDICARE REPLACEMENT Care Teams House Manager Relationship Specialty Start Date End Date Pcp, Unknown PCP - General 10/05/22 Additional Source Comments The information contained in this document represents components of the legal health record. It is not the complete legal health record.[facility]
--- OUTSIDE RECORDS SUMMARY | 2024-11-16 14:00 | XMS_ITS | Clinical Summary ---
Author Organization [facility] Address [address] [place] [address] Care Team Providers Care Ethanol Operations Manager Name Role Phone Unavailable Primary Care [...] (DEPAKOTE) [address] tabletIndications :Mood disorder Take 1 Tab by mouth once daily. Swallow whole. Do not crush or chew. 6 Active divalproex (DEPAKOTE ER) 500 mg 24 hr tabletIndications :Mood disorder Take 1 Tab by mouth nightly at bedtime. Swallow whole. Do not crush or chew. 6 Active risperiDONE (RISPERDAL) 2 mg tabletIndications :Mood disorder Take 1 Tab by mouth 2 (two) times daily. 6 Active OLANZapine (ZYPREXA) 15 mg tabletIndications :Mood disorder Take 1 Tab by mouth nightly at bedtime. 6 Active diphenhydrAMINE (BENADRYL) 50 mg tabletIndications :Insomnia due to other mental disorder Take 1 Tab by mouth nightly at bedtime as needed for sleep. 6 Active aspirin (ASPIRIN LOW DOSE) [address] tabletIndications :Diabetes mellitus type 2 in nonobese Take 1 Tab by mouth once daily. [...] injectionIndicati ons:Diabetes mellitus type 2 in nonobese Inject 80 Units into the skin once daily. 10 mL 6 Active liraglutide (VICTOZA) 0.6 mg/0.1 mL (18 mg/3 mL) injection penIndications:Di abetes mellitus type 2 in nonobese Inject 1.2 mg into the skin once [...] Treatment Not on file Insurance [place]
--- OUTSIDE RECORDS SUMMARY | 2024-11-16 14:00 | XMS_ITS | Clinical Summary ---
Author Organization [facility] Address [address] [place] [address] Phone Care Team Providers Care Transfer Machine Operator Name Role Phone Jos Pineda MD Primary Care Provider [phone] Allergies Active Allergy Reactions Criticality Noted Date Comments Tamsulosin Hallucinations,Weakness Medium 09/01/2024 Medications senna-docusate (Senna with Docusate Sodium) 8.6-50 mg per tablet Take 1 Tablet by mouth daily for 360 days Active pen needle, diabetic (BD Ultra-Fine Short Pen Needle) 31 gauge x 5/16 needle USE WITH INSULIN PEN ONCE DAILY. 024 Active naproxen sodium (ANAPROX) 220 mg tablet Take 1 Tablet by mouth 2 times daily (with meals). Active finasteride (PROSCAR) 5 mg tablet Take [...] as needed for Pain. Take with food. 021 Active risperiDONE (RisperDAL) 2 mg tablet Take 2 mg by mouth 2 times daily. Active alcohol swabs pads, medicated 009 Active diphenhydrAMINE (BENADRYL) 25 mg tablet 25 mg as needed. 015 Active bisacodyL (DULCOLAX) 5 mg EC tablet [...] own pace until rectals run clear Active aspirin 81 mg chewable tablet TAKE 1 TABLET BY MOUTH EVERY DAY 90 tablet 1 024 Active Lantus Solostar U-100 Insulin 100 unit/mL (3 mL) injection pen INJECT 48-50 UNITS INTO THE SKIN AT BEDTIME. 48-50 U PER NIGHT 45 mL 2 024 Active amLODIPine (NORVASC) 5 mg tabletIndication s:Essential (primary) hypertension TAKE 1 TABLET BY MOUTH EVERY DAY 90 tablet 2 024 Active atorvastatin (LIPITOR) 10 mg tablet TAKE 1 TABLET BY MOUTH 1 TIME EACH DAY. 90 tablet 2 025 Active blood-glucose meter kit 1 each 2 (two) times a day before meals. One touch 1 kit 1 025 Active metFORMIN (GLUCOPHAGE) 1,000 mg tabletIndication s:Type 2 diabetes mellitus without complications ([facility] V24, [facility] V28) Take 1 tablet (1,000 mg total) by mouth 2 (two) times a day with meals. 180 tablet 1 025 Active insulin lispro (HumaLOG KwikPen Insulin) 100 unit/mL injection pen Use before each meal, up to 2 times a day, sliding scale 100-149: 0 units 150-199: 2 units 200-249: 3 units 250-299: 4 units 300-349:5 units 350-400: 6 units Greater than 400, call me. 15 mL 11 025 Active glucose blood test strip 1 each by Other route 3 (three) times a day. Use as instructed 270 each 1 025 2025 Active fluconazole (DIFLUCAN) 200 mg tablet Take 1 tablet (200 mg total) by mouth 1 (one) time each day. Take one tablet daily for 14 days. 025 Active furosemide (LASIX) 20 mg tablet TAKE 1 TABLET BY MOUTH EVERY DAY 30 tablet 5 025 Active metoprolol succinate (TOPROL-XL) 25 mg 24 hr tablet TAKE 1 TABLET BY MOUTH EVERY DAY 90 tablet 1 025 Active lisinopriL (PRINIVIL,ZESTRI L) 2.5 mg tablet TAKE 1 TABLET BY MOUTH EVERY DAY 30 tablet 11 025 Active lisinopriL (PRINIVIL,ZESTRI L) 2.5 mg tablet Take 1 tablet (2.5 mg total) by mouth 1 (one) time each day. 023 2024 Discontinued metoprolol succinate (TOPROL-XL) 25 mg 24 hr tablet TAKE 1 TABLET BY MOUTH EVERY DAY 90 tablet 1 025 2024 Discontinued Active Problems Problem Noted Date Diagnosed Date Type 2 diabetes mellitus wit h diabetic neuropathy, unspecified ([facility] V24, [facility] V28) 01/28/2024 Essential (primary) hypertension 01/28/2024 Schizoaffective disorder, un specified ([facility] V24, [facility] V28) 01/28/2024 Gastro-esophageal reflux disease without esophag itis 01/28/2024 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 It seems to be more throat that esophagus. We will send the patient for a barium swallow and set up to see ENT Atrioventricular block, complete ([facility] V24, [facility] V28) 06/07/2020 Overview (11/22/2023): Last [...] Coronary artery disease 05/23/2019 Overview (11/22/2023): Old [place] 1995 at age 45 Last Assessment & Plan: Previous history of myocardial infarction. No residual ischemia on stress testing. History nonsustained V. tach in the past no further episodes identified on monitor. Recent episode of weakness no indication of being cardiac. GERD (gastroesophageal reflux disease) 0 Lactose intolerance 05/23/2019 Diabetes mellitus type 2, un complicated ([facility] V24, [facility] V28) 05/13/2017 Assessment & Plan (03/01/2024 10:40 [...] under control on lisinopril and amlodipine. Schizophrenia ([facility] V24, [facility] V28) 018 Overview (11/22/2023): [facility] admit 06/2012 Sacral wound 03/30/2017 Pulmonary nodules/lesions, multiple 09/04/2014 Dermatophytosis of nail 01/26/2013 Assessment & Plan (03/01/2024 10:40 AM EST): Orders: Ambulatory referral to Podiatry; Future Encounters Date Type Department Care Team Description 11/15/2024 Telephone Internal Medicine - [address] [place] [address] Kameron Nohelia [place] 11/15/2024 Telephone Internal Medicine [facility] [address] [phone] [place] 11/08/2024 Telephone Internal Medicine [facility] [address] [phone] [place]on [place]helia [place] 10/11/2024 10:30 AM EDT Ancillary Procedure [facility] [address] [facility] [address] [place] [address] Encounter for adjustment or management of cardiac device; CAD (coronary artery disease) 10/04/2024 [facility] [address] [phone] Chelsea Ferreira [place] 10/02/2024 Telephone Internal Medicine [address] [phone] [place]on [place]helia [place] 09/29/2024 9:30 AM EDT Office Visit Internal Medicine [address] [phone] Jos Pineda MD Acute pyelonephritis (Primary Dx); Systemic inflammatory response syndrome (SIRS) (CMS/[facility] V24, CMS/[facility] V28); Weakness; Benign prostatic hyperplasia, unspecified whether lower urinary tract symptoms present; Type 2 diabetes mellitus without complication, with long-term current use of insulin ([facility] V24, [facility] V28) 09/27/2024 Telephone Internal Medicine [facility] [address] [phone] Jos Pineda MD 09/26/2024 8:15 AM EDT Office Visit Orthopedic Surgery - [place] 250 175 [facility] 250 [place] [phone] Sravan Jimenez, DPM Dermatophytosis of nail (Primary Dx); Tinea pedis of both feet; Metatarsalgia of both feet; Hammer toe of left foot; Acquired hammer toe of right foot; Type II diabetes mellitus with peripheral circulatory disorder ([facility] V24, [facility] V28); Diabetic mononeuropathy simplex ([facility] V24, [facility] V28) 09/26/2024 Telephone Internal Medicine [address] [phone] Jos Pineda MD 09/26/2024 [facility] [address] [phone] Jos Pineda MD 09/22/2024 [facility] [address] [phone] Nohelia Melo [place] 09/22/2024 [facility] [address] [phone] [place]helia Melo [place] 09/20/2024 [facility] [address] [phone] Nohelia Melo [place] 09/19/2024 10:30 AM EDT Office Visit Internal [address] [phone] Jos Pineda MD Hospital discharge follow-up (Primary Dx); Primary hypertension; Type 2 diabetes mellitus without complication, unspecified whether alf insulin use ([facility] V24, [facility] V28); Benign prostatic hyperplasia, unspecified whether lower urinary tract symptoms present 09/19/2024 [facility] [address] [phone] Nohelia Melo [place] 09/19/2024 [facility] [address] [phone] Nohelia Melo [place] 09/12/2024 Telephone Internal Medicine [address] [phone] Jos Pineda MD 09/06/2024 Telephone Internal Medicine [address] [phone] [place], [place] 09/06/2024 Telephone Internal Medicine [address] [address] Jos Pineda MD 09/05/2024 Telephone Internal Medicine [address] [phone] Jos Pineda MD 09/04/2024 Telephone Internal Medicine [address] [phone] [place], [place] 09/04/2024 Telephone Internal Medicine [address] [phone] [place] 09/04/2024 [facility] [address] [phone] Kylee Rueda PA 09/01/2024 10:00 AM EDT Consult Internal Medicine [address] [phone] Jos Pineda MD Preop examination (Primary Dx); Primary hypertension; Type 2 diabetes mellitus without complication, with long-term current use of insulin (CMS/HCC V24, CMS/HCC V28) 08/30/2024 [facility] [address] [phone] Kylee Rueda, PA 08/30/2024 Telephone Internal Medicine [address] [phone] Jos Pineda MD 08/29/2024 Telephone Internal Medicine [address] [phone] Jos Pineda MD 08/29/2024 Telephone Endocrinology - [address] [phone] Kylee Rueda PA 08/29/2024 Telephone Internal Medicine [address] [phone] Jos Pineda MD 08/28/2024 Telephone Internal Medicine [facility] [address] [phone] Colon, Nohelia [place] 08/28/2024 Telephone Internal Medicine [facility] [address] [phone] Jos Pineda MD 08/25/2024 Telephone Internal Medicine [address] [phone] Jos Pineda MD 08/25/2024 Telephone Internal Medicine [address] [phone] Colon, Nohelia [place] 08/24/2024 [facility] [address] [phone] Colon, Nohelia [place] 08/23/2024 Telephone Internal Medicine [address] [address] Jos Pineda MD 08/22/2024 [facility] [address] [phone] Jos Pineda MD 08/21/2024 1:30 PM EDT Office Visit Internal [address] [phone] Jos Pineda MD Hospital discharge follow-up (Primary Dx); Acute cystitis without hematuria; Fall, initial encounter 08/16/2024 Telephone Internal Medicine [address] [phone] Lana Madrid [place] from Last 3 Months Immunizations Immunization Administration Dates Next Due Influenza, Unspecified 12/05/2020 Pfizer SARS-CoV-2 COVID-19, mRNA, LNP-S, preservative free 12/05/2020 Pneumococcal conjugate 20 va lent (Prevnar 20, PCV 20) 2mo and older 03/19/2022 Surgical History Surgery Date Site/Laterality Comments COLONOSCOPY 12/19/2001 PROCEDURE: HISTORICAL COLONOSCOPY COLONOSCOPY 06/18/2016 PROCEDURE: HISTORICAL COLONOSCOPY; COMMENT: repeat 3 years CATARACT EXTRACTION 10/2014 Bilateral PROCEDURE: HISTORICAL CATARACT REMOVAL OTHER SURGICAL HISTORY PROCEDURE: [place] BIOPSY TESTIS INCISIONAL SEPARATE PROCEDURE Medical History Medical History Date Comments History of encephalopathy 04/14/2017 DX:His tory of encephalopathy History of rhabdomyolysis 04/14/2017 DX:His tory of rhabdomyolysis Hyperlipidemia 05/13/2017 DX:Hyperlipidemi a Hypertension 05/13/2017 DX:Hypertension Dermatophytosis of nail 01/26/2013 DX:[facility] tophytosis of nail S/P placement of cardiac pacemaker 05/13/2017 DX:S/P placement of cardiac pacemaker; COMMENT: Comments: 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 Schizophrenia ([facility] V24, [facility] V28) 05/13/2017 DX:Schizophrenia (HCC) Pulmonary nodules/lesions, multiple 09/04/2014 DX:Pulmonary nodules/lesions, multiple Diabetes mellitus type 2, uncomplicated (CMS/HCC V24, [facility] V28) 05/13/2017 DX:Diabetes mellitus type 2, uncomplicated ([facility]) Sacral wound 03/30/2017 DX:Sacral wound Coronary artery disease 05/23/2019 DX:Coron timur artery disease; COMMENT: Old [place] 1995 GERD (gastroesophageal reflux disease) 0 DX:GERD [...] Sign Reading Time Taken Comments Blood Pressure 138/80 09/19/2024 10:48 AM EDT Pulse 77 09/19/2024 10:48 AM EDT Temperature 36.2 C (97.2 F) 09/19/2024 10:48 AM EDT Respiratory Rate 16 02/07/2024 11:22 AM EST Oxygen Saturation 96% 09/19/2024 10:48 AM EDT Inhaled Oxygen Concentration - - Weight 86.3 kg (190 lb 3.2 oz) 09/19/2024 10:48 AM EDT Height 185.4 cm (6' 1 ) 09/19/2024 10:48 AM EDT Body Mass Index 25.09 09/19/2024 10:48 AM EDT Plan of Treatment Upcoming Encounters Date Type Department Care Team (Late st Contact Info) Description 11/30/2024 8:45 AM EDT Office Visit Orthopedic Surgery - [place] 250 175 [facility] [address] [place] [phone] Sravan Jimenez DPM 175 [facility] 250 [place] [address] 12/11/2024 3:30 PM EDT Office Visit Endocrinology [facility] [address] [place] [address] Kyele Rueda PA [address] [place] [address] 03/27/2025 3:00 PM EST Office Visit Internal Medicine - [place] 175 [facility] [address] [place] [phone] Jos Pineda MD 175 [facility] 200 [place] [address] 04/23/2025 10:00 AM EDT Ancillary Procedure [facility] - [facility] 154 [address] [facility] [address] [place] [phone] Health Maintenance Due Date Last Done Comments [...] 01/24/2022 Social Influencers of Health Screening 01/24/2022 Diabetes: Blood Sugar Control Test (HGBA1C) 08/07/2024 02/07/2024, 09/30/2023, 09/30/2023, Additional history exists COVID-19 Vaccine ( season) 2024 04/04/2022, 06/10/2021, 12/05/2020, Additional history exists Influenza Vaccine (#1) 2024 , 12/05/2020, 01/15/2004, Additional history exists Diabetes: Annual Urine Albumin-Creatinine Ratio (uACR) 02/06/2025 02/07/2024, 09/16/2022 Diabetes: Annual GFR (Glomerular Filtration Rate) 02/06/2025 02/07/2024, 06/28/2023, 06/28/2023 Hypertension/CHF/CAD Annual BMP Blood Test 02/06/2025 02/07/2024, 06/28/2023, 06/28/2023 Falls Risk Assessment 03/01/2025 03/01/2024 Medicare Annual Wellness Visit 03/01/2025 03/01/2024 Cholesterol Screening (Lipid Panel) 09/17/2027 09/16/2022, 08/23/2015 Colorectal Cancer Screening: Colonoscopy 10/25/2033 10/26/2023 Pneumococcal Vaccine: 50+ Years Completed 03/19/2022, 07/15/2001 Depression Screening Completed 03/01/2024 HIB Vaccines Aged Out No longer eligi [...] Diagnosis Comments CARDIAC DEVICE CHECK- IN CLINIC- [facility] Routine 10/11/2024 12:59 PM EDT Encounter for adjustment or management of cardiac device CULTURE URINE Routine 09/29/2024 10:18 AM EDT Acute pyelonephritis Weakness Benign prostatic hyperplasia, unspecified whether lower urinary tract symptoms present MICROALBUMIN CREATININE URINE RATIO Routine 02/07/2024 12:18 PM EST Type 2 diabetes mellitus without complication, with long-term current use of insulin (CMS/HCC V24, CMS/HCC V28) BASIC METABOLIC PANEL Routine 02/07/2024 12:18 [...] Results * CARDIAC DEVICE CHECK- IN CLINIC- 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 [employer] CV DEVICE CHECK Implantable Pulse Generator Type IPG CV DEVICE CHECK Implantable Pulse Generator Model Assurity MRI 2272 CV DEVICE CHECK Implantable Pulse Generator Serial Number [id number] CV DEVICE CHECK Implantable Pulse Generator Implant Date [id number] CV DEVICE CHECK Battery Voltage 2.930 CV D EVICE CHECK Battery Status Middle of Service CV DEVICE CHECK Ananda Statistic RA Percent Paced 23.00 CV DEVICE CHECK Ananda Statistic RV Percent Paced 99.80 CV DEVICE CHECK Lead Channel Sensing Intrinsic Amplitude 3.300 CV DEVICE CHECK Lead Channel Setting Sensing Sensitivity 0.50 CV DEVICE CHECK Lead Channel Impedance Value 388 CV DEVICE CHECK Lead Channel Pacing Threshold Amplitude 0.750 CV DEVICE CHECK Lead Channel Pacing Threshold Pulse Width 0.5 CV DEVICE CHECK Lead Channel RA Pacing Threshold Date 2024-10-11 CV DEVICE CHECK Lead Channel Setting Pacing Amplitude 1.750 CV DEVICE CHECK Lead Channel Setting Pacing Pulse Width 0.5 CV DEVICE CHECK Lead Channel Sensing Intrinsic Amplitude 5.800 CV DEVICE CHECK Lead Channel Setting Sensing Sensitivity 2.00 CV DEVICE CHECK Lead Channel Impedance Value 450 CV DEVICE CHECK Lead Channel Pacing Threshold Amplitude 0.500 CV DEVICE CHECK Lead Channel Pacing Threshold Pulse Width 0.5 CV DEVICE CHECK Lead Channel RV Pacing Threshold Date 2024-10-11 CV DEVICE CHECK Lead Channel Setting Pacing [...] 150 CV DEVICE CHECK Date of Service 2025-04-04 CV DEVICE CHECK Anatomical Region Laterality Modality Device Interroga tion 10/11/2024 Impressions 10/17/2024 10:03 AM EDT Normal In-Office: No Events * Normal Device Function * Alerts or events: None * Battery: MOS, 2.60 yrs * Sensing, impedance and thresholds reviewed and tested * Presenting Rhythm: -RADIATION PROTECTION SPECIALIST 60s * Underlying Rhythm: CHB VS 40s * Heart Rate Histograms reviewed * Pacing and Detection Parameters were evaluated Narrative Procedure Note Rosario Damico MD - 10/17/2024 IMPRESSION: Normal In-Office: No Events * Normal Device Function * Alerts or events: None * Battery: MOS, 2.60 yrs * Sensing, impedance and thresholds reviewed and tested * Presenting Rhythm: -RADIATION PROTECTION SPECIALIST 60s * Underlying Rhythm: CHB VS 40s * Heart Rate Histograms reviewed * Pacing and Detection Parameters were evaluated us Order Referral Cardiovascular CV IMPLANTABLE CAR DIAC DEVICE PROCEDURES Final Result * (ABNORMAL) Culture urine (09/29/2024 10:18 AM EDT) Culture, Urine >=100,000 CFU/mL Enterobacter cloacae complex(A) DONNA 10/01/2024 11:[address] [facility] Comment: This is an edited result. Previous organism was Gram negative bacilli on 09/30/2024 at 0728 EDT. Urine Urine specimen obtained by clean catch procedure / Unknown Non-blood Collection / Unknown 09/29/2024 10:18 AM EDT 09/29/2024 10:18 AM EDT Narrative Organism Antibiotic Method Susceptibility Enterobacter cloacae complex Amoxicillin/Clavulanate DONNA >=32 ug/ml: Resistant Enterobacter cloacae complex Cefoxitin DONNA >=64 ug/ml: Resistant Enterobacter cloacae complex Ceftazidime DONNA <=0.5 ug/ml: Susceptible Enterobacter cloacae complex Cefepime DONNA <=0.12 ug/ml: Susceptible Enterobacter cloacae complex Meropenem DONNA <=0.25 ug/ml: Susceptible Enterobacter cloacae complex Amikacin DONNA 2 ug/ml: Susceptible Enterobacter cloacae complex Gentamicin DONNA <=1 ug/ml: Susceptible Enterobacter cloacae complex Ciprofloxacin DONNA <=0.06 ug/ml: Susceptible Enterobacter cloacae complex Levofloxacin DONNA <=0.12 ug/ml: Susceptible Enterobacter cloacae complex Nitrofurantoin DONNA 64 ug/ml: Intermediate Enterobacter cloacae complex Trimethoprim/Sulfamethoxazo le DONNA <=20 ug/ml: Susceptible Jos Pineda MD LAB MICROBIOLOGY - GENERAL ORDER GARRETT Final Result [facility] [address] [place] [address], * (ABNORMAL) Microalbumin creatinine urine ratio (02/07/2024 12:18 PM EST) Creatinine, Urine 41.0 mg/dL LAB CHEMISTRY METHOD 02/07/2024 3:[address] [facility] Microalb, Ur 29.6(H) 0.0 - 29.0 mg/L LAB CHEMISTRY METHOD 02/07/2024 3:[address] [facility] Microalb/Crea t Ratio 72(H) <30 mg/g creat LAB CHEMISTRY METHOD 02/07/2024 3:[address] [facility] Urine Urine specimen obtained by clean catch procedure / Unknown Non-blood Collection / Unknown 02/07/2024 12:18 PM EST 02/07/2024 12:18 PM EST us Kylee VU LAB URINE ORDERABLES Final Resul t Performing Organization Address [facility] de Phone Number [facility] [address] [place] [address], [place] [phone] * (ABNORMAL) Hemoglobin A1c (02/07/2024 12:18 PM EST) Hemoglobin A1C 8.0(H) <6.5 % LAB CHEMISTRY METHOD 02/07/2024 2:[address] [facility] Mean Bld Glu Estim. 183 mg/dL LAB CHEMISTRY METHOD 02/07/2024 2:[address] [facility] Blood Venous blood specimen / Unknown Venipuncture / Unknown 02/07/2024 12:18 PM EST 02/07/2024 12:18 PM EST us Kylee VU LAB BLOOD ORDERABLES Final Resul t Performing Organization Address [facility]/ZIP Co de Phone Number [facility] [address] [place] [address], [place] [phone] * (ABNORMAL) Basic metabolic panel (02/07/2024 12:18 PM EST) Sodium 137 133 - 145 mmol/L LAB CHEMISTRY METHOD 02/07/2024 5:[address] [facility] Potassium 4.3 3.5 - 5.5 [...] VU LAB BLOOD ORDERABLES Final Resul t [facility] [address] [place] [address], * Hm Colonoscopy (10/26/2023) HM Colonoscopy no interpretation , abstracted Anatomical Region [...] Health Maintenance Insurance [employer] [place] [address] Advance Directives Documents on File Type Date Recorded Patient Supervisor Ride Assembly Expl anation Health Care Decision (hx) 04/11/2020 AD ARMANDO DIRECTIVE Health Care Decision (hx) 04/11/2020 AD ARMANDO DIRECTIVE Health Care Decision (hx) 04/10/2020 AD ARMANDO DIRECTIVE Care Teams Transfer Machine Operator Relationship Specialty Start Date End Date Jos Pineda MD 175 [facility] [address] [place] [address] PCP - General Internal Medicine 12/17/17
== END 2024-11-16 13:43 | disposition home or self-care (01) ==
LOC: HO.HUSH 12:29
PROVIDERS: PCP Internal Medicine; Visit Provider Urology
DX: N13.4 Hydroureter (principal); E83.59 Other disorders of calcium metabolism; N29 Other disorders of kidney and ureter in diseases classified elsewhere; N40.1 Benign prostatic hyperplasia with lower urinary tract symptoms; R31.9 Hematuria, unspecified; N32.89 Other specified disorders of bladder; N13.30 Unspecified hydronephrosis; Z96.0 Presence of urogenital implants; R32 Unspecified urinary incontinence; R30.0 Dysuria
CPT/HCPCS: 99214

== ENCOUNTER → 2024-11-16 12:29 | Outpatient (BNVA) | payer OTHER, SELFPAY | PROVIDERS: PCP Internal Medicine; Visit Provider Urology | DX: N13.4 Hydroureter (principal); N13.30 Unspecified hydronephrosis; N29 Other disorders of kidney and ureter in diseases classified elsewhere; E83.59 Other disorders of calcium metabolism; N40.1 Benign prostatic hyperplasia with lower urinary tract symptoms; R31.9 Hematuria, unspecified; N32.89 Other specified disorders of bladder; Z96.0 Presence of urogenital implants | CPT/HCPCS: 51798; 81003; 99212 ==

== ENCOUNTER 2024-12-26 07:38 | Outpatient (REF) | payer OTHER, SELFPAY ==
--- NOTE | ~2024-12-26 | XR_ITS ---
EXAMINATION: XR ABDOMEN KUB CLINICAL INDICATION: N13.4 - Hydroureter COMPARISON: Correlated to CT dated June 14, 2024. TECHNIQUE: AP view of the abdomen. FINDINGS: There is a left-sided ureteral stent with pigtail formed seen in the left upper abdomen and left lower pelvis. No intestinal obstruction pattern. Multilevel spondylosis, thoracolumbar spine. Degenerative changes in sacroiliac joints, coxofemoral joints and to a lesser extent symphysis pubis. XR/XR KUB IMPRESSION: Left-sided ureteral stent placement. Electronically signed by: Noé See MD 12/26/2024 08:09 AM IPPPA
--- OUTSIDE RECORDS SUMMARY | 2024-12-26 07:43 | XMS_ITS | Clinical Summary ---
Author Organization [facility] Address [address] [facility] [address] [place] [id number] Phone Care Team Providers Care Bookmaker'S Clerk Name Role Phone Pcp, Unknown Primary Care [...] VACCINE (#1) 2024 COVID-19 VACCINE (1 - 2024-2 6 season) 2024 RSV VACCINE (1 - 1-dose [...] topic Medical Devices Not on file [place] [address] [place] [address] MEDICARE REPLACEMENT [facility] MEDICARE REPLACEMENT [facility] [place] [phone] [place] [phone] [place] [address] MEDICARE REPLACEMENT Care Teams Bookmaker'S Clerk Relationship Specialty Start Date End Date Pcp, Unknown PCP - General 10/05/22 Additional Source Comments The information contained in this document represents components of the legal health record. It is not the complete legal health record.[facility]
--- OUTSIDE RECORDS SUMMARY | 2024-12-26 07:43 | XMS_ITS | Clinical Summary ---
Author Organization 175 [facility] Address 175 [place] [address] Phone Care Team Providers Care Plumbing And Heating Mechanic Name Role Phone Jos Pineda MD Primary Care Provider [phone] Allergies Active Allergy Reactions Criticality Noted Date [...] EVERY DAY 90 tablet 1 024 Active atorvastatin (LIPITOR) 10 mg tablet TAKE 1 TABLET BY MOUTH 1 TIME EACH DAY. 90 tablet 2 025 Active blood-glucose meter kit 1 each 2 (two) times a day before meals. One touch 1 kit 1 025 Active metFORMIN (GLUCOPHAGE) 1,000 mg tabletIndication s:Type 2 diabetes mellitus without complications ([facility] V24, [facility] V28) Take 1 tablet (1,000 mg total) [...] EVERY DAY 30 tablet 11 025 Active clotrimazole (LOTRIMIN) 1 % cream Apply topically 2 (two) times a day. 30 g 3 025 2024 Active amLODIPine (NORVASC) 5 mg tabletIndication s:Essential (primary) hypertension TAKE 1 TABLET BY MOUTH EVERY DAY 90 tablet 1 025 Active insulin glargine (Lantus Solostar U-100 Insulin) 100 unit/mL (3 mL) injection pen Inject 48 Units under the skin at bedtime. 45 mL 2 025 Active Lantus Solostar U-100 Insulin 100 unit/mL (3 mL) injection pen INJECT 48-50 UNITS INTO THE SKIN AT BEDTIME. 48-50 U PER NIGHT 45 mL 2 024 2024 Discontinued amLODIPine (NORVASC) 5 mg tabletIndication s:Essential (primary) hypertension TAKE 1 TABLET BY MOUTH EVERY DAY 90 tablet 2 024 2024 Discontinued Active Problems Problem Noted Date Diagnosed Date Type 2 diabetes mellitus wit h diabetic neuropathy, unspecified ([facility] V24, [facility] V28) 01/28/2024 Essential (primary) hypertension 01/28/2024 Schizoaffective disorder, un specified ([facility] V24, [facility] V28) 01/28/2024 Gastro-esophageal reflux disease without esophag itis 01/28/2024 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 It seems to be more throat that esophagus. We will send the patient for a barium swallow and set up to see ENT Atrioventricular block, complete ([facility] V24, [facility] V28) 06/07/2020 Overview (11/22/2023): Last Assessment & [...] Coronary artery disease 05/23/2019 Overview (11/22/2023): Old [place] 1996 at age 45 Last Assessment & Plan: Previous history of myocardial infarction. No residual ischemia on stress testing. History nonsustained V. tach in the past no further episodes identified on monitor. Recent episode of weakness no indication of being cardiac. GERD (gastroesophageal reflux disease) 0 Lactose intolerance 05/23/2019 Diabetes mellitus type 2, un complicated ([facility] V24, [facility] V28) 05/13/2017 Assessment & Plan (03/01/2024 10:40 [...] under control on lisinopril and amlodipine. Schizophrenia ([facility] V24, [facility] V28) 018 Overview (11/22/2023): [facility] admit 06/2012 Sacral wound 03/30/2017 Pulmonary nodules/lesions, multiple 09/04/2014 Dermatophytosis of nail 01/26/2013 Assessment & Plan (03/01/2024 10:40 AM EST): Orders: Ambulatory referral to Podiatry; Future Encounters Date Type Department Care Team Description 12/12/2024 Telephone Internal Medicine [facility] [address] [phone] Nohelia Melo MA 12/11/2024 3:30 PM EDT Office Visit Endocrinology [address] [phone] Kylee Rueda PA Type 2 diabetes mellitus with diabetic neuropathy, unspecified whether alf insulin use ([facility] V24, [facility] V28) (Primary Dx); Hyperlipidemia, unspecified hyperlipidemia type; Primary hypertension 11/30/2024 8:45 AM EDT Office Visit Orthopedic Surgery - [place] [address] [phone] Sravan Jimenez, ANNALISA Dermatophytosis of nail (Primary Dx); Hammer toe of left foot; Acquired hammer toe of right foot; Pain in toe of left foot; Diabetic mononeuropathy simplex ([facility] V24, [facility] V28); Type II diabetes mellitus with peripheral circulatory disorder ([facility] V24, [facility] V28); Tinea pedis of both feet; Pain in toe of right foot 11/20/2024 Telephone Adult Medicine [address] [phone] Deepak Valdez LPN 11/15/2024 Telephone Internal Medicine [facility] [address] [phone] Nohelia Melo MA 11/15/2024 Telephone Internal Medicine [facility] [address] [phone] Nohelia Melo [place] 11/08/2024 Telephone Internal Medicine [address] [phone] Nohelia Melo [place] 10/11/2024 10:30 AM EDT Ancillary Procedure [facility] - [facility] 154 300 [facility] 154 [place] [phone] Encounter for adjustment or management of cardiac device; CAD (coronary artery disease) 10/04/2024 [facility] [address] [place] [phone] Bipin Ferreirassemmanuelle [place] 10/02/2024 [facility] [address] [phone] Nohelia Melo [place] 09/29/2024 9:30 AM EDT Office Visit Internal [address] [place] [phone] Jos Pineda MD Acute pyelonephritis (Primary Dx); Systemic inflammatory response syndrome (SIRS) ([facility]24, [facility] V28); Weakness; Benign prostatic hyperplasia, unspecified whether lower urinary tract symptoms present; Type 2 diabetes mellitus without complication, with long-term current use of insulin ([facility] V24, [facility] V28) 09/27/2024 [facility] [address] [phone] Jos Pineda MD 09/26/2024 8:15 AM EDT Office Visit Orthopedic Surgery [facility] 250 175 [facility] 250 [place] [phone] Sravan Jimenez, DPM Dermatophytosis of nail (Primary Dx); Tinea pedis of both feet; Metatarsalgia of both feet; Hammer toe of left foot; Acquired hammer toe of right foot; Type II diabetes mellitus with peripheral circulatory disorder ([facility], [facility] V28); Diabetic mononeuropathy simplex ([facility] V24, [facility] V28) 09/26/2024 [facility] [address] [phone] Jos Pineda MD 09/26/2024 [facility] [address] [phone] Jos Pineda MD from Last 3 Months Immunizations Immunization Administration [...] HISTORICAL CATARACT REMOVAL OTHER SURGICAL HISTORY PROCEDURE: [place] BIOPSY TESTIS INCISIONAL SEPARATE PROCEDURE Medical History Medical History Date Comments History of encephalopathy 04/14/2017 DX:His tory of encephalopathy History of rhabdomyolysis 04/14/2017 DX:His tory of rhabdomyolysis Hyperlipidemia 05/13/2017 DX:Hyperlipidemi a Hypertension 05/13/2017 DX:Hypertension Dermatophytosis of nail 01/26/2013 DX:[place] tophytosis of nail S/P placement of cardiac pacemaker 05/13/2017 DX:S/P placement of cardiac pacemaker; COMMENT: Comments: 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 Schizophrenia ([facility] V24, [facility] V28) 05/13/2017 DX:Schizophrenia (HCC) Pulmonary nodules/lesions, multiple 09/04/2014 DX:Pulmonary nodules/lesions, multiple Diabetes mellitus type 2, uncomplicated ([facility] V24, [facility] V28) 05/13/2017 DX:Diabetes mellitus type 2, uncomplicated (HCC) Sacral wound 03/30/2017 DX:Sacral wound Coronary artery disease 05/23/2019 DX:Coron timur artery disease; COMMENT: Old [place] 1995 GERD (gastroesophageal reflux disease) 0 DX:GERD [...] Sign Reading Time Taken Comments Blood Pressure 115/63 12/11/2024 3:35 PM EDT Pulse 60 12/11/2024 3:35 PM EDT Temperature 36.2 C (97.2 F) 09/19/2024 10:48 AM EDT Respiratory Rate 14 12/11/2024 3:35 PM EDT Oxygen Saturation 96% 09/19/2024 10:48 AM EDT Inhaled Oxygen Concentration - - Weight 89.8 kg (198 lb) 12/11/2024 3:35 PM EDT Height 185.4 cm (6' 1 ) 12/11/2024 3:35 PM EDT Body Mass Index 26.12 12/11/2024 3:35 PM EDT Plan of Treatment Upcoming Encounters Date Type Department Care Team (Late st Contact Info) Description 03/05/2025 8:45 AM EST Office Visit Orthopedic Surgery - [place] [address] 175 [facility] 250 [place] [phone] Sravan Jimenez, DPM [address] [phone] 03/14/2025 4:00 PM EST Office Visit Endocrinology [address] [phone] Kylee Rueda PA [address] [place] [address] 03/27/2025 3:00 PM EST Office Visit Internal Medicine - [place] 175 [facility] 200 [place] [phone] Jos Pineda MD [address] [place] [phone] 04/23/2025 10:00 AM EDT Ancillary Procedure [facility] - [facility] 154 300 [facility] 154 [place] [phone] 05/09/2025 8:20 AM EDT Office Visit [facility] - [facility] [address] [place] [address] Eliseo Morejon MD [address] [place] [address] Dr Recinos [address] [place] [address] Health Maintenance Due Date Last Done Comments Diabetes: Annual Foot Exam 04/24/1961 Diabetes: Annual Retina Eye Exam 04/24/1961 DTaP,Tdap,and Td Vaccines (1 - Tdap) 04/24/1970 Hepatitis A Vaccines (1 of 2 - Risk 2-dose series) 04/24/1970 RSV Immunization Adult Patients (1 - Risk 50-74 years 1-dose series) 04/24/2001 Zoster Vaccines (1 of 2) 04/24/2001 Abdominal Aortic Aneurysm (AAA) Screen 01/24/2022 Hepatitis [...] CARDIAC DEVICE CHECK- IN CLINIC- [facility] Routine 10/11/2024 12:59 PM EDT Encounter for adjustment or management of cardiac device CULTURE URINE Routine 09/29/2024 10:18 AM EDT Acute pyelonephritis Weakness Benign prostatic hyperplasia, unspecified whether lower urinary tract symptoms present MICROALBUMIN CREATININE URINE RATIO Routine 02/07/2024 12:18 PM EST Type 2 diabetes mellitus without complication, with long-term current use of insulin ([facility] V24, [facility] V28) BASIC METABOLIC PANEL Routine 02/07/2024 12:18 PM EST Type 2 diabetes mellitus without complication, with long-term current use of insulin ([facility] V24, [facility] V28) HEMOGLOBIN A1C Routine 02/07/2024 12:18 PM EST Type 2 diabetes mellitus without complication, with long-term current use of insulin ([facility] V24, [facility] V28) HM COLONOSCOPY Routine 10/26/2023 LIPID PANEL Routine 09/16/2022 from Last 3 Months or Most Recently Relevant to Health Maintenance Results * CARDIAC [place]ICE [place] [facility] [place]10/11/2024 12:59 PM EDT) Date Time Interrogation Session [id number] CV DEVICE CHECK Implantable Pulse 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 [employer] CV DEVICE CHECK Implantable Pulse Generator Type IPG CV DEVICE CHECK Implantable Pulse Generator Model Assurity MRI 2272 CV DEVICE CHECK Implantable Pulse Generator Serial Number [id number] CV DEVICE CHECK Implantable Pulse Generator Implant [...] thresholds reviewed and tested * Presenting Rhythm: -MANAGER HVAC 60s * Underlying Rhythm: CHB VS 40s * Heart Rate Histograms reviewed * Pacing and Detection Parameters were evaluated Narrative Procedure Note Rosario Damico MD - 10/17/2024 IMPRESSION: Normal In-Office: No Events * Normal Device Function * Alerts or events: None * Battery: MOS, 2.60 yrs * Sensing, impedance and thresholds reviewed and tested * Presenting Rhythm: -MANAGER HVAC 60s * Underlying Rhythm: CHB VS 40s * Heart Rate Histograms reviewed * Pacing and Detection Parameters were evaluated us Order Referral Cardiovascular CV IMPLANTABLE CAR DIAC DEVICE PROCEDURES Final Result * (ABNORMAL) Culture urine (09/29/2024 10:18 AM EDT) [facility] Culture, Urine >=100,000 CFU/mL Enterobacter cloacae complex(A) DONNA 10/01/2024 11:20 AM EDT [facility] Comment: This is an edited result. [...] MICROBIOLOGY - GENERAL ORDER GARRETT Final Result Performing Organization Address [facility] de Phone Number [facility] [address] [place] [address], * (ABNORMAL) Microalbumin creatinine urine ratio (02/07/2024 12:18 PM EST) Creatinine, Urine 41.0 mg/dL LAB CHEMISTRY METHOD 02/07/2024 3:00 PM EST [facility] Microalb, Ur 29.6(H) 0.0 - 29.0 mg/L LAB CHEMISTRY METHOD 02/07/2024 3:00 PM EST [facility] Microalb/Crea t Ratio 72(H) <30 mg/g creat LAB CHEMISTRY METHOD 02/07/2024 3:00 PM EST [facility] Urine Urine specimen obtained by clean catch procedure / Unknown Non-blood Collection / Unknown 02/07/2024 12:18 PM EST 02/07/2024 12:18 PM EST Kylee VU LAB URINE ORDERABLES Final Resul t Performing Organization Address [facility]/ZIP Al de Phone Number [facility] [address] [place] [address], [place] [phone] * (ABNORMAL) Hemoglobin A1c (02/07/2024 12:18 PM EST) Hemoglobin A1C 8.0(H) <6.5 % LAB CHEMISTRY METHOD 02/07/2024 2:27 PM EST [facility] Mean Bld Glu Estim. 183 mg/dL LAB CHEMISTRY METHOD 02/07/2024 2:27 PM EST [facility] Blood Venous blood specimen / Unknown Venipuncture / Unknown 02/07/2024 12:18 PM EST 02/07/2024 12:18 PM EST us Kylee VU LAB BLOOD ORDERABLES Final Resul t [facility] [address] [place] [address], [place] [phone] * (ABNORMAL) Basic metabolic panel (02/07/2024 12:18 PM EST) Pathologist [facility] Sodium 137 133 - 145 mmol/L LAB CHEMISTRY METHOD 02/07/2024 5:07 PM [facility] Potassium 4.3 3.5 - 5.5 mmol/L LAB CHEMISTRY METHOD 02/07/2024 5:07 PM [facility] Chloride 101 96 - 110 mmol/L LAB CHEMISTRY METHOD 02/07/2024 5:07 PM [facility] CO2 31 21 - 32 mmol/L LAB CHEMISTRY METHOD 02/07/2024 5:07 PM [facility] Anion Gap 5 3 - 11 LAB CHEMISTRY METHOD 02/07/2024 5:07 PM [facility] Glucose 208(H) 70 - 100 mg/dL LAB CHEMISTRY METHOD 02/07/2024 5:07 PM [facility] BUN 10 5 - 25 mg/dL LAB CHEMISTRY METHOD 02/07/2024 5:07 PM [facility] Creatinine 0.73 0.70 - 1.30 mg/dL LAB CHEMISTRY METHOD 02/07/2024 5:07 PM [facility] eGFR 97 >=60 mL/min/1. 73m2 LAB CHEMISTRY METHOD 02/07/2024 5:07 PM [facility] Comment:Calculation based on the Chronic Kidney Disease Epidemiology Collaboration (CKD-EPI) equation refit without adjustment for race. BUN/Creatinine Ratio 13.7 LAB CHEMISTRY METHOD 02/07/2024 5:07 PM EST [facility] Calcium 9.1 8.5 - 10.5 mg/dL LAB CHEMISTRY METHOD 02/07/2024 5:07 PM EST [facility] Blood Venous blood specimen / Unknown Venipuncture / Unknown 02/07/2024 12:18 PM EST 02/07/2024 12:18 PM EST Kylee VU LAB BLOOD ORDERABLES Final Resul t [facility] [address] [place] [address], [place] [phone] * Colonoscopy (10/26/2023) Pathologist [facility] Colonoscopy no interpretation , abstracted Anatomical Region Laterality Modality Other Historical Provider HEALTH MAINTENANCE Final Result * (ABNORMAL) Lipid panel (09/16/2022) [facility] LDL/HDL Ratio 5(A) 0 - 4 [...] Documents on File Type Date Recorded 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
--- OUTSIDE RECORDS SUMMARY | 2024-12-26 07:43 | XMS_ITS | Clinical Summary ---
Author Organization [facility] Address [address] [place] [address] Care Team Providers Care Transition Mgr Rn Name Role Phone Unavailable Primary Care Provider [...] Treatment Not on file Insurance [place]
== END 2024-12-26 07:39 | disposition home or self-care (01) ==
LOC: HO.XRAY 07:38
PROVIDERS: PCP Internal Medicine; Visit Provider Urology
DX: N13.4 Hydroureter (principal); E83.59 Other disorders of calcium metabolism; N29 Other disorders of kidney and ureter in diseases classified elsewhere
CPT/HCPCS: 74018

== ENCOUNTER → 2024-12-26 07:43 | Outpatient (BNV) | payer OTHER, SELFPAY | PROVIDERS: PCP Internal Medicine; Visit Provider Radiology Diagnostic Radiology | DX: N13.4 Hydroureter (principal) | CPT/HCPCS: 74018 ==

== ENCOUNTER 2025-01-05 12:53 | Outpatient (AMB) | payer OTHER, SELFPAY ==
--- OUTSIDE RECORDS SUMMARY | 2025-01-05 13:14 | XMS_ITS | Encounter Summary ---
Author Organization [facility] Address [address] [place] [address] Care Team Providers Care Drop Crew Laborer Name Role Phone Jos Pineda MD Primary Care Provider [phone] Reason for Visit * Reason Onset Date Comments Request For Order(s) 01/03/2025 [facility] Encounter Details Date Type Department Care Team (Late st Contact Info) Description 01/03/2025 Telephone Internal Medicine - [place] 175 [facility] [address] [place] [address] Nohelia Melo MA Social History [...] Progress Notes * Nohelia Melo MA - 01/04/2025 7:37 AM EST Scanned into chart and faxed to [facility] [phone] * Nohelia Melo MA - 01/03/2025 9:09 AM EST [facility] Please sign & fax [phone] documented in this encounter Plan of Treatment Upcoming Encounters Date Type Department Care Team (Late st Contact Info) Description 03/05/2025 8:45 AM EST Office Visit Orthopedic Surgery - [place] 250 175 [facility] 250 [place] [phone] Sravan Jimenez DPM 175 [facility] 250 [place] [phone] 03/14/2025 4:00 PM EST Office Visit Endocrinology - [place] [address] [place] [address] Kylee Rueda PA [address] [place] [address] 03/27/2025 3:00 PM EST Office Visit Internal Medicine - [place] 175 [facility] 200 [place] [phone] Jos Pineda MD [address] [place] [phone] 04/23/2025 10:00 AM EDT Ancillary Procedure [facility] [address] [facility] 154 [place] [address] 05/09/2025 8:20 AM EDT Office Visit [facility] - [facility] [place] [address] [place] [address] Eliseo Morejon MD [address] [place] [address] Dr Jorje [address] [place] [phone] documented as of this encounter Visit Diagnoses Not on filedocumented in this encounter Additional Health Concerns Assessment Noted Time PHQ-9 Depression Total Score: 2 03/01/19 9:22 AM EST A fall risk assessment has been complete d for the patient 03/01/2024 9:19 AM EST documented as of this encounter Care Teams Drop Crew Laborer Relationship Specialty Start Date End Date Jos Pineda MD 175 [place] [address] PCP - General Internal Medicine 12/17/17 documented as of this encounter
--- OUTSIDE RECORDS SUMMARY | 2025-01-05 13:14 | XMS_ITS | Clinical Summary ---
Author Organization [facility] Address [address] [place] [address] Phone Care Team Providers Care Golf Sales Associate Name Role Phone Jos Pineda MD Primary Care Provider [phone] Allergies Active Allergy Reactions Criticality Noted Date Comments Tamsulosin Hallucinations,Weakness Medium 09/01/2024 Medications senna-docusate (Senna with Docusate Sodium) 8.6-50 mg per tablet Take 1 Tablet by mouth daily for 360 days Active naproxen sodium (ANAPROX) 220 mg tablet [...] tabletIndication s:Type 2 diabetes mellitus without complications (CMS/[facility] V24, CMS/[facility] V28) Take 1 tablet (1,000 mg total) [...] EVERY DAY 30 tablet 11 025 Active amLODIPine (NORVASC) 5 mg tabletIndication s:Essential (primary) hypertension TAKE 1 TABLET BY MOUTH EVERY DAY 90 tablet 1 025 Active insulin glargine (Lantus Solostar U-100 Insulin) 100 unit/mL (3 mL) injection pen Inject 48 Units under the skin at bedtime. 45 mL 2 025 Active Ultra-Fine Pen Needle 31 gauge x 5/16 needleIndication s:Type 2 diabetes mellitus without complications ([facility] V24, [facility] V28) USE WITH INSULIN PEN THREE TIMES A DAILY. 100 each 2 025 Active pen needle, diabetic (BD Ultra-Fine Short Pen Needle) 31 gauge x 5/16 needle USE WITH INSULIN PEN ONCE DAILY. 024 2024 Discontinued Lantus Solostar U-100 Insulin 100 unit/mL (3 mL) injection pen INJECT 48-50 UNITS INTO THE SKIN AT BEDTIME. 48-50 U PER NIGHT 45 mL 2 024 2024 Discontinued amLODIPine (NORVASC) 5 mg tabletIndication s:Essential (primary) hypertension TAKE 1 TABLET BY MOUTH EVERY DAY 90 tablet 2 024 2024 Discontinued clotrimazole (LOTRIMIN) 1 % cream Apply topically 2 (two) times a day. 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 It seems to be more throat that esophagus. We will send the patient for a barium swallow and set up to see ENT Atrioventricular block, complete ([facility] V24, [place] V28) 06/07/2020 Overview (11/22/2023): Last Assessment & [...] 05/23/2019 Diabetes mellitus type 2, un complicated ([facility] V24, [facility] V28) 05/13/2017 Assessment & Plan (03/01/2024 10:40 [...] under control on lisinopril and amlodipine. Schizophrenia ([facility] V24, [facility] V28) 018 Overview (11/22/2023): [facility] admit 06/2012 Sacral wound 03/30/2017 Pulmonary nodules/lesions, multiple 09/04/2014 Dermatophytosis of nail 01/26/2013 Assessment & Plan (03/01/2024 10:40 AM EST): Orders: Ambulatory referral to Podiatry; Future Encounters Date Type Department Care Team Description 01/03/2025 Telephone Internal Medicine [address] [phone] Nohelia Melo MA 12/12/2024 Telephone Internal Medicine [address] [phone] Nohelia Melo [place] 12/11/2024 3:30 PM EDT Office Visit Endocrinology [address] [phone] Kylee Rueda PA Type 2 diabetes mellitus with diabetic neuropathy, unspecified whether assistant art director insulin use ([facility] V24, [facility] V28) (Primary Dx); Hyperlipidemia, unspecified hyperlipidemia type; Primary hypertension 11/30/2024 8:45 AM EDT Office Visit Orthopedic Surgery [facility] [address] [facility] [address] [place] [phone] Sravan Jimenez, DPM Dermatophytosis of nail (Primary Dx); Hammer toe of left foot; Acquired hammer toe of right foot; Pain in toe of left foot; Diabetic mononeuropathy simplex (CMS/HCC V24, CMS/HCC V28); Type II diabetes mellitus with peripheral circulatory disorder (CMS/HCC V24, [facility] V28); Tinea pedis of both feet; Pain in toe of right foot 11/20/2024 Telephone Adult Medicine [address] [phone] Deepak Valdez LPN 11/15/2024 Telephone Internal Medicine [address] [phone] Nohelia Melo MA 11/15/2024 Telephone Internal Medicine - [place] [address] [facility] [address] [place] [phone] Nohelia Melo MA 11/08/2024 Telephone Internal Medicine - [place] [address] [facility] [address] [place] [phone] Nohelia Melo MA 10/11/2024 10:30 AM EDT Ancillary Procedure [facility] - [facility] [address] [facility] [address] [place] [phone] Encounter for adjustment or management of cardiac device; CAD (coronary artery disease) from Last 3 Months Immunizations Immunization Administration [...] HISTORICAL CATARACT REMOVAL OTHER SURGICAL HISTORY PROCEDURE: CO BIOPSY TESTIS INCISIONAL SEPARATE PROCEDURE Medical History Medical History Date Comments History of encephalopathy 04/14/2017 DX:His tory of encephalopathy History of rhabdomyolysis 04/14/2017 DX:His tory of rhabdomyolysis Hyperlipidemia 05/13/2017 DX:Hyperlipidemi a Hypertension 05/13/2017 DX:Hypertension Dermatophytosis of nail 01/26/2013 DX:[place] tophytosis of nail S/P placement of cardiac pacemaker 05/13/2017 DX:S/P placement of cardiac pacemaker; COMMENT: Comments: 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 Schizophrenia (CMS/HCC V24, CMS/HCC V28) 05/13/2017 DX:Schizophrenia (HCC) Pulmonary nodules/lesions, multiple 09/04/2014 DX:Pulmonary nodules/lesions, multiple Diabetes mellitus type 2, uncomplicated (CMS/HCC V24, CMS/HCC V28) 05/13/2017 DX:Diabetes mellitus type 2, uncomplicated [...] AM EST Office Visit Orthopedic Surgery - [place] [address] [phone] Sravan Jimenez DPElisha [address] [phone] 03/14/2025 4:00 PM EST Office Visit Endocrinology - [place] [address] [place] [phone] Kylee Rueda PA [address] [place] [address] 03/27/2025 3:00 PM EST Office Visit Internal Medicine - [place] [address] [place] [phone] Jos Pineda MD [address] [place] [phone] 04/23/2025 10:00 AM EDT Ancillary Procedure [facility] - [facility] [address] [facility] [address] [place] [phone] 05/09/2025 8:20 AM EDT Office Visit [facility] [address] [place] [address] Eliseo Morejon MD [address] [place] [address] [address] [place] [address] Health Maintenance Due Date Last [...] Name Priority Date/Time Associated Diagnosis Comments EXTERNAL XRAY REPORT 12/26/2024 EXTERNAL XRAY REPORT 12/26/2024 CARDIAC DEVICE CHECK- IN CLINIC- [facility] Routine 10/11/2024 12:59 PM EDT Encounter for adjustment or management of cardiac device MICROALBUMIN CREATININE URINE RATIO Routine 02/07/2024 12:18 PM EST Type 2 diabetes mellitus without complication, with long-term current use of insulin ([facility] V24, [facility] V28) BASIC METABOLIC PANEL Routine 02/07/2024 12:18 [...] Relevant to Health Maintenance Results * External Xray Report (12/26/2024) Only the most recent of2 resultswithin the time period is included. Anatomical Region Laterality Modality Radiographic Norma ging us Provider [facility] IMG XR PROCEDURES Final Result * CARDIAC DEVICE CHECK- [place] [facility] (10/11/2024 12:59 PM EDT) Date Time Interrogation Session [id number] CV DEVICE CHECK Implantable Pulse Generator Due Diligence Coordinator [place] CV DEVICE CHECK Implantable Pulse Generator Type IPG CV DEVICE CHECK Implantable Pulse Generator Model Assurity MRI 2272 CV DEVICE CHECK Implantable Pulse Generator Serial Number [id number] CV DEVICE CHECK Implantable Pulse Generator Implant [...] thresholds reviewed and tested * Presenting Rhythm: -WARP SPLITTER 60s * Underlying Rhythm: CHB VS 40s * Heart Rate Histograms reviewed * Pacing and Detection Parameters were evaluated Narrative Procedure Note Rosario Damico MD - 10/17/2024 IMPRESSION: Normal In-Office: No Events * Normal Device Function * Alerts or events: None * Battery: MOS, 2.60 yrs * Sensing, impedance and thresholds reviewed and tested * Presenting Rhythm: -WARP SPLITTER 60s * Underlying Rhythm: CHB VS 40s * Heart Rate Histograms reviewed * Pacing and Detection Parameters were evaluated us Order Referral Cardiovascular CV IMPLANTABLE CAR DIAC DEVICE PROCEDURES Final Result * (ABNORMAL) Microalbumin creatinine urine ratio (02/07/2024 12:18 PM EST) Creatinine, Urine 41.0 mg/dL LAB CHEMISTRY METHOD 02/07/2024 3:00 PM EST [facility] Microalb, Ur 29.6(H) 0.0 - 29.0 [...] ORDERABLES Final Resul t Performing Organization Address City/[facility]/ZIP Co de Phone Number [facility] [address] [place] [address], [place] [phone] * (ABNORMAL) Hemoglobin A1c (02/07/2024 12:18 PM EST) Hemoglobin A1C 8.0(H) <6.5 % LAB CHEMISTRY METHOD 02/07/2024 2:27 PM EST [facility] Mean Bld Glu Estim. 183 mg/dL LAB CHEMISTRY METHOD 02/07/2024 2:27 PM EST [facility] Blood Venous blood specimen / Unknown Venipuncture / Unknown 02/07/2024 12:18 PM EST 02/07/2024 12:18 PM EST Kylee VU LAB BLOOD ORDERABLES Final Resul t Performing Organization Address [facility]/ZIP Co de Phone Number [facility] [address] [place] [address], [place] [phone] * (ABNORMAL) Basic metabolic panel (02/07/2024 12:18 PM EST) Sodium 137 133 - 145 mmol/L LAB CHEMISTRY METHOD 02/07/2024 5:07 PM EST [facility] Potassium 4.3 3.5 - 5.5 mmol/L LAB CHEMISTRY METHOD 02/07/2024 5:07 PM [facility] Chloride 101 96 - 110 mmol/L LAB CHEMISTRY METHOD 02/07/2024 5:07 PM EST [facility] CO2 31 21 - 32 mmol/L LAB CHEMISTRY METHOD 02/07/2024 5:07 PM [facility] Anion Gap 5 3 - 11 LAB CHEMISTRY METHOD 02/07/2024 5:07 PM [facility] Glucose 208(H) 70 - 100 mg/dL LAB CHEMISTRY METHOD 02/07/2024 5:07 PM [facility] BUN 10 5 - 25 mg/dL LAB CHEMISTRY METHOD 02/07/2024 5:07 PM [facility] Creatinine 0.73 0.70 - 1.30 mg/dL LAB CHEMISTRY METHOD 02/07/2024 5:07 PM [facility] eGFR 97 >=60 mL/min/1. 73m2 LAB CHEMISTRY METHOD 02/07/2024 5:07 PM [facility] Comment:Calculation based on the Chronic Kidney Disease Epidemiology Collaboration (CKD-EPI) equation refit without adjustment for race. BUN/Creatinine Ratio 13.7 LAB CHEMISTRY METHOD 02/07/2024 5:07 PM [facility] Calcium 9.1 8.5 - 10.5 mg/dL LAB CHEMISTRY METHOD 02/07/2024 5:07 PM [facility] Blood Venous blood specimen / Unknown Venipuncture / Unknown 02/07/2024 12:18 PM EST 02/07/2024 12:18 PM EST Kylee VU LAB BLOOD ORDERABLES Final Resul t [facility] [address] [place] [address], [place] [phone] * Colonoscopy (10/26/2023) Pathologist [facility] Colonoscopy no interpretation , abstracted Anatomical Region Laterality Modality Other Historical Provider HEALTH MAINTENANCE Final Result * (ABNORMAL) Lipid panel (09/16/2022) [facility] LDL/HDL Ratio 5(A) 0 - 4 Triglycerides 134 0 - 150 mg/dL Cholesterol 139 0 - 200 mg/dL HDL 28(A) >=40 mg/dL LDL Cholesterol 85 0 - 100 mg/dL Blood Venous blood specimen / Unknown us Historical Provider LAB BLOOD ORDERABLES Yain l Result from Last 3 Months or Most Recently Relevant to Health Maintenance Insurance [employer] Advance Directives Documents on File Type Date Recorded Patient Product Responsibility Liaison Expl anation Health Care Decision (hx) 04/11/2020 AD ARMANDO DIRECTIVE Health Care Decision (hx) 04/11/2020 AD ARMANDO DIRECTIVE Health Care Decision (hx) 04/10/2020 AD ARMANDO DIRECTIVE Care Teams Golf Sales Associate Relationship Specialty Start Date End Date Jos Pineda MD [address] [facility] [address] [place] [address] PCP - General Internal Medicine 12/17/17
--- OUTSIDE RECORDS SUMMARY | 2025-01-05 13:14 | XMS_ITS | Clinical Summary ---
Author Organization [facility] Address [address] [facility] [address] [place] [phone] Phone Care Team Providers Care Cheese Pancake Roller Name Role Phone Pcp, Unknown Primary Care [...] topic Medical Devices Not on file [place] [address] [address] [place] [address] MEDICARE REPLACEMENT [facility] MEDICARE REPLACEMENT [facility] [place] [phone] [place] [phone] [place] [address] [place] [address] MEDICARE REPLACEMENT Care Teams Cheese Pancake Roller Relationship Specialty Start Date End Date Pcp, Unknown PCP - General 10/05/22 Additional Source Comments The information contained in this document represents components of the legal health record. It is not the complete legal health record.[facility]
--- NOTE | 2025-01-05 13:39 | A.OFFVIS_ITS ---
Intake Visit Reasons: 7W/Poss Cysto Stent Removal Intake Note: Patient presents to the office today for 7w cysto possible stent removal Urology meds:Finastride,Tamsulosin Blood thinners:Aspirin Antibiotic Allergy:None Lot #:[id number] EXP:07/25/27 Seasoner Required: No Accompanied by: Self / Same As Patient Allergies No Known Allergies Allergy (Verified 11/16/24 13:25) Medication List - Last Reconciled 01/05/25 by Sonia Rojas MD amlodipine 5 mg PO DAILY aspirin 1 tab PO DAILY cefdinir 300 mg PO BID 7 days ciprofloxacin HCl 500 mg PO BID divalproex 250 mg PO BID divalproex 500 mg PO BID finasteride (Proscar) 5 mg PO DAILY insulin glargine (Lantus Solostar U-100 Insulin) units subcut lisinopril 2.5 mg PO DAILY magnesium oxide 400 mg PO DAILY metformin 1,000 mg PO BID metoprolol succinate ER 25 mg PO DAILY olanzapine 10 mg PO BEDTIME risperidone 2 mg PO BID sennosides-docusate sodium 8.6-50 mg (Senexon-S) 1 tab PO DAILY tamsulosin (Flomax) 0.4 mg PO BEDTIME voriconazole 400 mg (2 x 200 mg) PO Q12H 7 days HPI Comments Details: 01/05/25--The patient is a 74-year-old individual presenting for ureteral stent removal. The patient had left ureteral stent placed previously, and there is a current urinary tract infection that prevents the procedure from being performed today. Also the patient states that prior office cystoscopy referral and have a cystoscopy done in the office again The patient has been experiencing burning sensations during urination, which is a symptom of the urinary tract infection. A KUB x-ray was performed to confirm the presence of the stent, which extends to the bladder. The patient will be treated with antibiotics to address the infection, we will schedule outpatient cystoscopy and stent removal. Results - X-ray confirmed presence of ureteral stent extending to the bladder Plan 1. Urinary Tract Infection - Initiate antibiotic therapy to treat the infection. - Reschedule stent removal after infection resolution. 2. Presence Of Ureteral Stent - Plan for stent removal as an outpatient procedure 11/16/24--Koko is a 74-year-old male who has been followed due to BPH symptoms. Workup included ultrasound which noted left hydronephrosis he is status post left ureteral stent placement. Follow-up today was 2 re-evaluate the kidneys and he had an ultrasound completed. History of Present Illness The patient is a 74-year-old male presenting with a follow-up for kidney evaluation and ureteral stent status. He has a history of Benign Prostatic Hyperplasia (BPH) with symptoms that have been managed over time. A CT Urogram previously noted left hydronephrosis, leading to the placement of a left ureteral stent on September 12, 2024. A renal ultrasound conducted on November 13, 2024, showed left nephrocalcinosis with no hydronephrosis and normal bilateral echogenicity of the kidneys. The patient reports that the stent was removed by the staff, although there is no documentation of this in the notes. A KUB will be checked to confirm the presence of the ureteral stent, and follow-up will be scheduled for cystoscopy and potential stent removal if necessary. The patient's post-void residual bladder scan today showed 171 mL, and he continues on medications for prostate management, including finasteride and tamsulosin. Comorbid conditions include diabetes mellitus, for which he is on insulin and metformin therapy. Results - CT Urogram: Left hydronephrosis noted, leading to stent placement. - Renal ultrasound (11/13/24): Left nephrocalcinosis, no hydronephrosis - Post-void residual bladder scan: 171 mL. Plan 1. Benign Prostatic Hyperplasia (Bph) - Continue medications: Finasteride 5 mg daily, Tamsulosin 0.4 mg daily. 2. Left Hydronephrosis - KUB to confirm ureteral stent status. - Schedule follow-up for cystoscopy and potential stent removal if stent is in situ. 3. Nephrocalcinosis - Monitor renal function and follow-up as needed. 09/18/24-- Left hydro, S/p stent, bladder bx. 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 Plan FU renal US. 08/03/24--Here for office cystoscopy. Cystoscopy findings: prostatic urethra trilobar enlargement, bulbous urethra WNL, limited evaluation further evaluation with outpatient cysto, and bladder biopsy. Results - CT urogram on 06/14/24 showed persistent left hydronephrosis without ureteral stones. - Bladder wall thickening noted on imaging. Discussion Notes I discussed with the patient the findings of the CT urogram, which showed persistent left hydronephrosis and bladder wall thickening. We talked about the need for further evaluation, including a potential biopsy to assess the bladder wall thickening. I explained the procedure would be done in the hospital to ensure thorough examination and safety. We also reviewed the patient's current medications and discussed starting Flomax and finasteride for prostate management. 04/13/24--Koko is a 73-year-old male presenting for the follow-up of urinary system evaluations. An ultrasound has identified left kidney hydronephrosis, hydroureter and bladder wall thickening, suggestive of potential complication from Benign Prostatic Hyperplasia (BPH). His treatment history includes Finasteride, he states he stopped the tamsulosin because it caused him diarrhea. A PSA blood test showed normal results, 0.41 ng/mL. Today- hematuria on urinalysis, discussed further diagnostic plans including a CT urogram. Urinary Symptoms Review - Hematuria has been noted. Results - Labs: PSA level at 0.41 on March 07, 2024 - Imaging: Ultrasound results indicating hydronephrosis in the left kidney and thickening of the bladder wall. 02/24/24--Koko is a 73 year old male who is here for testicular pain and scrotal swelling. He states he had colonscopy, and then about 2-3 days later, there was swelling in the testicle he states he received a cream which improved the swelling and now his symptoms are resolved. He states it ibanez sometimes when he urinates. He wears pull ups. Exam--bilateral testicles, no swelling, [facility] History Complete heart block Schizoaffective disorder Pacemaker Diabetes HLD (hyperlipidemia) HTN (hypertension) Social History Are you a primary childcare director to a significant other at home: No Do you presently have visiting nurse or other home services: No Patient Tobacco Use Status: Current everyday Tobacco user Tobacco use type: Cigarette Cigarette Packs Per Day: 0.5 Cigarettes Per Day: 10.0 Second Hand Smoke Exposure: No Review of Systems Const All systems reviewed & are unremarkable except as noted in HPI and below Reports no additional complaints Eyes Reports no additional complaints ENT Reports no additional complaints Card Reports no additional complaints Resp Reports no additional complaints GI Reports no additional complaints Reports as per HPI Musc Reports no additional complaints Skin/Breast Reports system reviewed and no additional complaints, except as documented Neuro Reports no additional complaints Psych Reports no additional complaints Endo Reports no additional complaints Vivek/Lymph Reports no additional complaints Aller/Immun Reports no additional complaints Results AMB Urinalysis, Automated UA Leukoctes 500 Ezra/uL Last Edit by Crystal Mena on 01/05/25 16:53 UA Nitrite Positive Last Edit by Crystal Mena on 01/05/25 16:53 UA Urobilinogen 0.2 mg/dL Last Edit by Crystal Mena on 01/05/25 16:53 UA Protein 30 mg/dL Last Edit by Crystal Mena on 01/05/25 16:53 UA pH 6.0 Last Edit by Crystal Mena on 01/05/25 16:53 UA Blood 80 Demetrius/uL Last Edit by Crystal Mena on 01/05/25 16:53 UA Specific Beaufort 1.015 Last Edit by Crystal Mena on 01/05/25 16:53 UA Ketone Negative Last Edit by Crystal Mena on 01/05/25 16:53 UA Bilirubin 0 mg/dL Last Edit by Crystal Mena on 01/05/25 16:53 UA Glucose 0 mg/dL Last Edit by Crystal Mena on 01/05/25 16:53 Results Reviewed Results Reviewed: Laboratory Last Values Urine pH (Auto) 6.0 01/05/25 16:19 Specific Beaufort (Auto) 1.015 01/05/25 16:19 Urine Protein (Auto) 30 mg/dL 01/05/25 16:19 Glucose (UA)(Auto) 0 mg/dL 01/05/25 16:19 Urine Ketones (Auto) Negative 01/05/25 16:19 Urine Blood (Auto) 80 Demetrius/uL 01/05/25 16:19 Urine Nitrite (Auto) Positive 01/05/25 16:19 Urine Bilirubin (Auto) 0 mg/dL 01/05/25 16:19 Urine Urobilinogen (Auto) 0.2 mg/dL 01/05/25 16:19 Leukocyte Esterase (Auto) 500 Ezra/uL 01/05/25 16:19 Assessment & Plan Assessment & Plan (1) Hydroureter, left: Code(s): N13.4 - Hydroureter Category: Medical (2) Nephrocalcinosis: Code(s): E83.59 - Other disorders of calcium metabolism; N29 - Other disorders of kidney and ureter in diseases classified elsewhere Category: Medical (3) BPH loc w urin obs/LUTS: Code(s): N40.1 - Benign prostatic hyperplasia with lower urinary tract symptoms Category: Medical (4) Hematuria: Code(s): R31.9 - Hematuria, unspecified Category: Medical (5) Bladder wall thickening: Code(s): N32.89 - Other specified disorders of bladder Category: Medical (6) Hydronephrosis, left: Code(s): N13.30 - Unspecified hydronephrosis Category: Medical (7) Ureteral stent present: Code(s): Z96.0 - Presence of urogenital implants Category: Medical (8) UTI (urinary tract infection): Code(s): N39.0 - Urinary tract infection, site not specified Category: Medical Plan Plan 1. Urinary Tract Infection - Initiate antibiotic therapy to treat the infection. - Reschedule stent removal after infection resolution. 2. Presence Of Ureteral Stent - Plan for stent removal as an outpatient procedure Orders: Orders Urine Culture 01/05/25 R30.0 - Dysuria AMB Urinalysis Automated 01/05/25 Z13.9 - Encounter for screening, unspecified Medications: New ciprofloxacin HCl 500 mg PO BID 14 tabs 0RF Patient Instructions: The patient had an opportunity to ask questions regarding treatment plan. The patient expressed understanding and agreement with the above treatment plan. The patient is aware they should contact our office by phone for worsening of their current condition or the appearance of new symptoms. Compliance is encouraged with any medications and followup testing that is ordered. It is a privilege to be allowed the opportunity to participate in the urologic care of your patient. If you have any questions or concerns regarding treatment for the above conditions please do not hesitate to contact me. The office telephone contact is [phone]. This note is constructed in part using voice recognition software. While every effort has been made to ensure accuracy sales merchandise associate errors may have been included. Yours sincerely, Sonia Rojas MD Scribe Plan - Not visible on output: Patient was informed and verbally consented to the use of an ambient scribe for clinic note documentation during this visit. Coding Level of Care Code Complex visit Add On G2211 Diagnoses Hydroureter, left N13.4 Nephrocalcinosis E83.59; N29 BPH loc w urin obs/LUTS N40.1 Hematuria R31.9 Bladder wall thickening N32.89 Hydronephrosis, left N13.30 Ureteral stent present Z96.0 UTI (urinary tract infection) N39.0
== END 2025-01-05 14:06 | disposition home or self-care (01) ==
LOC: HO.HUSH 12:53
PROVIDERS: PCP Internal Medicine; Visit Provider Urology
DX: Z13.9 Encounter for screening, unspecified (principal)

== ENCOUNTER 2025-01-05 12:53 | Outpatient (REF) | payer OTHER, SELFPAY | END 2025-01-05 12:54 | disposition home or self-care (01) | LOC: HO.LAB 12:53 | PROVIDERS: PCP Internal Medicine; Visit Provider Urology | DX: N13.4 Hydroureter (principal); R30.0 Dysuria; E83.59 Other disorders of calcium metabolism; N40.1 Benign prostatic hyperplasia with lower urinary tract symptoms; R31.9 Hematuria, unspecified; N32.89 Other specified disorders of bladder; N13.30 Unspecified hydronephrosis; Z96.0 Presence of urogenital implants; N39.0 Urinary tract infection, site not specified | CPT/HCPCS: 81003; 87086; 87088; 87186; 99212 ==

== ENCOUNTER 2025-01-23 10:46 | Day surgery (SDC) | payer OTHER, SELFPAY ==
--- OUTSIDE RECORDS SUMMARY | 2025-01-10 11:30 | XMS_ITS | Encounter Summary ---
Author Organization [facility] Address [address] [place] [address] Care Team Providers Care Business Excellence Manager Name Role Phone Jos Pineda MD Primary Care Provider [phone] Reason for Visit * Reason Onset Date Comments Request For Order(s) 01/09/2025 [facility] Care Cert 12/23/24-02/21/24 Encounter Details Date Type Department Care Team (Late st Contact Info) Description 01/09/2025 Telephone Internal Medicine - [place] [address] [place] [address] Nohelia Melo MA Social History [...] Progress Notes * Nohelia Melo MA - 01/10/2025 7:36 AM EST Scanned into chart and faxed to [facility] [phone] * Nohelia Melo MA - 01/09/2025 10:18 AM EST [facility] Care Cert 12/23/24-02/21/24 Please sign & fax [phone] documented in this encounter Plan of Treatment Upcoming Encounters Date Type Department Care Team (Late st Contact Info) Description 03/05/2025 8:45 AM EST Office Visit Orthopedic Surgery - [place] [address] [facility] [address] [place] [phone] Sravan Jimenez DPElisha [address] [facility] [address] [place] [phone] 03/14/2025 4:00 PM EST Office Visit Endocrinology - [place] [address] [place] [address] Kylee Rueda PA [address] [place] [address] 03/27/2025 3:00 PM EST Office Visit Internal Medicine - [place] [address] [facility] [address] [place] [phone] Jos Pineda MD [address] [facility] [address] [place] [address] 04/23/2025 10:00 AM EDT Ancillary Procedure [facility] Cardiology [facility] [address] [facility] [address] [place] [phone] 05/09/2025 8:20 AM EDT Office Visit [facility] [address] [place] [phone] Eliseo Morejon MD [address] [place] [address] [address] [place] [phone] documented as of this encounter Visit Diagnoses Not on filedocumented in this encounter Additional Health Concerns Assessment Noted Time PHQ-9 Depression Total Score: 2 03/01/19 9:22 AM EST A fall risk assessment has been complete d for the patient 03/01/2024 9:19 AM EST documented as of this encounter Care Teams Business Excellence Manager Relationship Specialty Start Date End Date Jos Pineda MD [address] [place] [address] PCP - General Internal Medicine 12/17/17 documented as of this encounter
--- OUTSIDE RECORDS SUMMARY | 2025-01-10 11:30 | XMS_ITS | Clinical Summary ---
Author Organization [facility] Address [address] [place] [address] Phone Care Team Providers Care High School Guidance Counselor Name Role Phone Jos Pineda MD Primary Care Provider [phone] Allergies Active Allergy Reactions Criticality Noted Date [...] own pace until rectals run clear Active atorvastatin (LIPITOR) 10 mg tablet TAKE 1 TABLET BY MOUTH 1 TIME EACH DAY. 90 tablet 2 025 Active blood-glucose meter kit 1 each 2 (two) times a day before meals. One touch 1 kit 1 025 Active metFORMIN (GLUCOPHAGE) 1,000 mg tabletIndication s:Type 2 diabetes mellitus without complications (CMS/HCC V24, CMS/HCC V28) Take 1 tablet (1,000 mg total) [...] Greater than 400, call me. 15 mL 025 Active glucose blood test strip 1 [...] EVERY DAY 90 tablet 1 Active insulin glargine (Lantus Solostar U-100 Insulin) 100 unit/mL (3 mL) injection pen Inject 48 Units under the skin at bedtime. 45 mL 2 025 Active Ultra-Fine Pen Needle 31 gauge x 5/16 needleIndication s:Type 2 diabetes mellitus without complications ([facility] V24, [facility] V28) USE WITH INSULIN PEN THREE TIMES A DAILY. 100 each 2 025 Active aspirin 81 mg chewable tablet TAKE 1 TABLET BY MOUTH EVERY DAY 90 tablet 1 Active pen needle, diabetic (BD Ultra-Fine Short Pen Needle) 31 gauge x 5/16 needle USE WITH INSULIN PEN ONCE DAILY. 024 2024 Discontinued aspirin 81 mg chewable tablet TAKE 1 TABLET BY MOUTH EVERY DAY 90 tablet 1 024 2024 Discontinued Lantus Solostar U-100 Insulin 100 unit/mL (3 mL) injection pen INJECT 48-50 UNITS INTO THE SKIN AT BEDTIME. 48-50 U PER NIGHT 45 mL 2 024 2024 Discontinued clotrimazole (LOTRIMIN) 1 % cream Apply topically 2 (two) times a day. 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 It seems to be more throat that esophagus. We will send the patient for a barium swallow and set up to see ENT Atrioventricular block, complete ([facility] V24, [facility] [place]/[facility] V28) 06/07/2020 Overview (11/22/2023): Last Assessment & [...] Coronary artery disease 05/23/2019 Overview (11/22/2023): Old MO 1995 at age 45 Last Assessment & Plan: Previous history of myocardial infarction. No residual ischemia on stress testing. History nonsustained V. tach in the past no further episodes identified on monitor. Recent episode of weakness no indication of being cardiac. GERD (gastroesophageal reflux disease) 0 Lactose intolerance 05/23/2019 Diabetes mellitus type 2, un complicated ([facility] V24, [facility] V28) 05/13/2017 Assessment & Plan (03/01/2024 10:40 [...] under control on lisinopril and amlodipine. Schizophrenia ([facility] V24, [facility] V28) 018 Overview (11/22/2023): [facility] admit 06/2012 Sacral wound 03/30/2017 Pulmonary nodules/lesions, multiple 09/04/2014 Dermatophytosis of nail 01/26/2013 Assessment & Plan (03/01/2024 10:40 AM EST): Orders: Ambulatory referral to Podiatry; Future Encounters Date Type Department Care Team Description 01/09/2025 Telephone Internal Medicine [facility] 175 [facility] [address] [place] [address] Nohelia Melo [place] 01/03/2025 Telephone Internal Medicine [address] [phone] Nohelia Melo [place] 12/12/2024 Telephone Internal Medicine [address] [phone] Nohelia Melo [place] 12/11/2024 3:30 PM EDT Office Visit Endocrinology [address] [phone] Kylee Rueda PA Type 2 diabetes mellitus with diabetic neuropathy, unspecified whether snf insulin use ([facility] V24, [facility] V28) (Primary Dx); Hyperlipidemia, unspecified hyperlipidemia type; Primary hypertension 11/30/2024 8:45 AM EDT Office Visit Orthopedic Surgery [facility] 250 [address] [facility] [address] [place] [phone] Sravan Jimenez, DPM Dermatophytosis of nail (Primary Dx); Hammer toe of left foot; Acquired hammer toe of right foot; Pain in toe of left foot; Diabetic mononeuropathy simplex (CMS/[facility] V24, CMS/[facility] V28); Type II diabetes mellitus with peripheral circulatory disorder (CMS/[facility] V24, CMS/[facility] V28); Tinea pedis of both feet; Pain in toe of right foot 11/20/2024 Telephone Adult Medicine [address] [phone] Deepak Valdez LPN 11/15/2024 Telephone Internal Medicine [address] [phone] Nohelia Melo [place] 11/15/2024 Telephone Internal Medicine - [place] 175 [facility] [address] [place] [phone] Nohelia Melo [place] 11/08/2024 Telephone Internal Medicine - [place] 175 [facility] [address] [place] [address] Nohelia Melo [place] 10/11/2024 10:30 AM EDT Ancillary Procedure [facility] - [facility] [address] [facility] [address] [place] [phone] Encounter for adjustment or management of cardiac [...] HISTORICAL CATARACT REMOVAL OTHER SURGICAL HISTORY PROCEDURE: [place] BIOPSY TESTIS INCISIONAL SEPARATE PROCEDURE Medical History Medical History Date Comments History of encephalopathy 04/14/2017 DX:His tory of encephalopathy History of rhabdomyolysis 04/14/2017 DX:His tory of rhabdomyolysis Hyperlipidemia 05/13/2017 DX:Hyperlipidemi a Hypertension 05/13/2017 DX:Hypertension Dermatophytosis of nail 01/26/2013 DX:Aguilares tophytosis of nail S/P placement of cardiac [...] 05/23/2019 DX:Coron timur artery disease; COMMENT: Old MO 1995 GERD (gastroesophageal reflux disease) 0 DX:GERD [...] AM EST Office Visit Orthopedic Surgery - [place] [address] [phone] Sravan Jimenez DPM [address] [phone] 03/14/2025 4:00 PM EST Office Visit [address] [phone] Kylee Rueda PA [address] [place] [address] 03/27/2025 3:00 PM EST Office Visit Internal Medicine - [place] [address] [facility] [address] [place] [phone] Jos Pineda MD [address] [facility] [address] [place] [address] 04/23/2025 10:00 AM EDT Ancillary Procedure [facility]iology [facility] - [facility] [address] [place] [phone] 05/09/2025 8:20 AM EDT Office Visit [facility]iology [facility] [address] [place] [address] [address] [place] [phone] Eliseo Morejon MD [address] [place] [address] [address] [phone] Health Maintenance Due Date Last Done Comments [...] complication, with long-term current use of insulin ([facility] V24, CMS/[facility] V28) BASIC METABOLIC PANEL Routine 02/07/2024 12:18 PM EST Type 2 diabetes mellitus without complication, with long-term current use of insulin (CMS/HCC V24, CMS/HCC V28) HEMOGLOBIN A1C Routine 02/07/2024 12:18 PM EST Type 2 diabetes mellitus without complication, with long-term current use of insulin (CMS/[facility] V24, CMS/[facility] V28) HM COLONOSCOPY Routine 10/26/2023 LIPID PANEL Routine 09/16/2022 from Last 3 Months or Most Recently Relevant to Health Maintenance Results * External Xray Report (12/26/2024) Only the most recent of2 resultswithin the time period is included. Anatomical Region Laterality Modality Radiographic Norma ging us Provider [facility] IMG XR PROCEDURES Final Result * CARDIAC DEVICE CHECK- [place] [facility] [facility] (10/11/2024 12:59 PM EDT) Date Time Interrogation Session [id number] CV DEVICE CHECK Implantable Pulse Generator Duty Engineer [employer] CV DEVICE CHECK Implantable Pulse Generator Type IPG CV DEVICE CHECK Implantable Pulse Generator Model Assurity MRI 2272 CV DEVICE CHECK Implantable Pulse Generator Serial Number [id number] CV DEVICE CHECK Implantable Pulse Generator Implant [...] thresholds reviewed and tested * Presenting Rhythm: -FAMILY SERVICES ASSISTANT 60s * Underlying Rhythm: CHB VS 40s * Heart Rate Histograms reviewed * Pacing and Detection Parameters were evaluated Narrative Procedure Note Rosario Damico MD - 10/17/2024 IMPRESSION: Normal In-Office: No Events * Normal Device Function * Alerts or events: None * Battery: MOS, 2.60 yrs * Sensing, impedance and thresholds reviewed and tested * Presenting Rhythm: -FAMILY SERVICES ASSISTANT 60s * Underlying Rhythm: CHB VS 40s * Heart Rate Histograms reviewed * Pacing and Detection Parameters were evaluated us Order Referral Cardiovascular CV IMPLANTABLE CAR DIAC DEVICE PROCEDURES Final Result * (ABNORMAL) Microalbumin creatinine urine ratio (02/07/2024 12:18 PM EST) Creatinine, Urine 41.0 mg/dL LAB CHEMISTRY METHOD 02/07/2024 3:00 PM EST [facility] Microalb, Ur 29.6(H) 0.0 [...] ORDERABLES Final Resul t Performing Organization Address [facility]/ZIP Co de Phone Number [facility] [address] [place] [address], [place] [phone] * (ABNORMAL) Hemoglobin A1c (02/07/2024 12:18 PM [...] ORDERABLES Final Resul t Performing Organization Address City/[facility]/ZIP Co de Phone Number [facility] [address] [place] [address], [place] [phone] * (ABNORMAL) Basic metabolic panel (02/07/2024 12:18 [...] VU LAB BLOOD ORDERABLES Final Resul t [facility] [address] [place] [address], [place] [phone] * Hm Colonoscopy (10/26/2023) Colonoscopy no interpretation [...] Documents on File Type Date Recorded Patient Hearing Screen Coordinator Expl anation Health Care Decision (hx) 04/11/2020 AD ARMANDO DIRECTIVE Health Care Decision (hx) 04/11/2020 AD ARMANDO DIRECTIVE Health Care Decision (hx) 04/10/2020 AD ARMANDO DIRECTIVE Care Teams High School Guidance Counselor Relationship Specialty Start Date End Date Jos Pineda MD 175 [facility] 200 [place] [address] PCP - General Internal Medicine 12/17/17
--- OUTSIDE RECORDS SUMMARY | 2025-01-10 11:30 | XMS_ITS | Encounter Summary ---
Author Organization [facility] Address [address] [place] [address] Care Team Providers Care Optical Model Maker And Tester Name Role Phone Jos Pineda MD Primary Care Provider [phone] Reason for Visit * Reason Onset Date Comments Request For Order(s) 01/03/2025 [facility] Encounter Details Date Type Department Care Team (Late st Contact Info) Description 01/03/2025 Telephone Internal Medicine - [place] [address] [facility] [address] [place] [address] Nohelia Melo MA Social History [...] Scanned into chart and faxed to [facility] [phone] * Nohelia Melo MA - 01/03/2025 9:09 AM EST [facility] Please sign & fax [phone] documented in this encounter Plan of Treatment Upcoming Encounters Date Type Department Care Team (Late st Contact Info) Description 03/05/2025 8:45 AM EST Office Visit Orthopedic Surgery - [place] 250 175 [facility] [address] [place] [phone] Sravan Jimenez DPM 175 [facility] [address] [place] [phone] 03/14/2025 4:00 PM EST Office Visit Endocrinology - [place] [address] [place] [address] Kylee Rueda PA [address] [place] [address] 03/27/2025 3:00 PM EST Office Visit Internal Medicine - [place] 175 [facility] [address] [place] [phone] Jos Pineda MD 175 [facility] 200 [place] [address] 04/23/2025 10:00 AM EDT Ancillary Procedure [facility]iology [facility] [address] [facility] [address] [place] [address] 05/09/2025 8:20 AM EDT Office Visit [facility] - [facility] [address] [place] [address] Eliseo Morejon MD [address] [place] [address] [address] [place] [phone] documented as of this encounter Visit Diagnoses Not on filedocumented in this encounter Additional Health Concerns Assessment Noted Time PHQ-9 Depression Total Score: 2 03/01/19 9:22 AM EST A fall risk assessment has been complete d for the patient 03/01/2024 9:19 AM EST documented as of this encounter Care Teams Optical Model Maker And Tester Relationship Specialty Start Date End Date Jos Pineda MD [address] [place] [address] PCP - General Internal Medicine 12/17/17 documented as of this encounter
--- OUTSIDE RECORDS SUMMARY | 2025-01-10 11:30 | XMS_ITS | Clinical Summary ---
Author Organization [facility] Address [address] [facility] [address] [place] [address] Phone Care Team Providers Care Assistant Corporate Secretary Name Role Phone Pcp, Unknown Primary Care [...] topic Medical Devices Not on [place] [address] [place] [address] MEDICARE REPLACEMENT [facility] MEDICARE REPLACEMENT [facility] [place] [id number] [place] [id number] [place] [place] [address] MEDICARE REPLACEMENT Care Teams Assistant Corporate Secretary Relationship Specialty Start Date End Date Pcp, Unknown PCP - General 10/05/22 Additional Source Comments The information contained in this document represents components of the legal health record. It is not the complete legal health record.[facility]
--- NOTE | 2025-01-19 09:35 | HO.ANESPROP2 ---
Documented by User: Carol Garcia NP 01/19/25 13:22 HPI - Anesthesia Eval Consult details Narrative: 74 yr old male for cystoscopy with stent removal s/p cystoscopy with GA, LMA 5 08/2024 Complete HB: s/p [employer] pacemaker 2018; device check 10/11/24, batter 2.6 yrs, no events, normal device function; RA pacing 23, RV pacing 99.80; lower rate 60, max rate 120. Last saw cardiology ?02/2023. PMF Active Problems Active Problems: All Active Problems (Updated 01/08/25 @ 15:14 by Sonia Rojas MD) UTI (urinary tract infection) (Acute) Nephrocalcinosis (Acute) Ureteral stent present (Acute) Hydroureter, left (Acute) Hydronephrosis, left (Acute) Bladder wall thickening (Acute) Hematuria (Acute) Dysuria (Acute) BPH loc w urin obs/LUTS (Acute) Urinary incontinence (Acute) Scrotal swelling (Acute) Past Medical History Medical History Hx of cardiac pacemaker (~2017) Myocardial infarction (~1995) Hx of testicular biopsy CAD (coronary artery disease) Complete heart block Schizoaffective disorder Pacemaker Diabetes HLD (hyperlipidemia) HTN (hypertension) Family History Family history of problems with anesthesia: No Surgical History Surgical History H/O colonoscopy Hx of cataract extraction History of Problems with Anesthesia: No Social History Social History Are you a primary day care center director to a significant other at home: No Do you presently have visiting nurse or other home services: No Patient Tobacco Use Status: Current everyday Tobacco user Tobacco use type: Cigarette Cigarette Packs Per Day: 1 Cigarettes Per Day: 20.0 Second Hand Smoke Exposure: No Use of substances other than those prescribed or required for medical reasons: No Advance Directives: No Advance Directives Information Provided: Yes Meds Allergies Allergy/AdvReac Type Severity Reaction Status Date / Time tamsulosin Allergy Hallucinati Verified 01/23/25 11:47 ons Home Medications ?Medication ?Instructions ?Recorded ?Confirmed ?Last Taken ?Type amlodipine 5 mg tablet 5 mg PO DAILY 02/24/24 01/23/25 01/23/25 History aspirin 81 mg chewable tablet 1 tab PO DAILY 02/24/24 01/23/25 Unknown History divalproex 250 mg tablet,delayed 250 mg PO BID 02/24/24 01/23/25 Unknown History release divalproex 500 mg tablet,delayed 500 mg PO BID 02/24/24 01/23/25 Unknown History release insulin glargine 100 unit/mL (3 unit subcut 02/24/24 01/05/25 01/21/25 History mL) subcutaneous pen (Lantus Solostar U-100 Insulin) lisinopril 2.5 mg tablet 2.5 mg PO DAILY 02/24/24 01/23/25 Unknown History magnesium oxide 400 mg (241.3 mg 400 mg PO DAILY 02/24/24 01/23/25 Unknown History magnesium) tablet metformin 1,000 mg tablet 1,000 mg PO BID 02/24/24 01/23/25 Unknown History olanzapine 10 mg tablet 10 mg PO BEDTIME 02/24/24 01/23/25 Unknown History risperidone 2 mg disintegrating 2 mg PO BID 02/24/24 01/23/25 Unknown History tablet sennosides 8.6 mg-docusate sodium 1 tab PO DAILY 02/24/24 01/23/25 Unknown History 50 mg tablet (Senexon-S) metoprolol succinate 25 mg 25 mg PO DAILY 08/03/24 01/23/25 01/23/25 History tablet,extended release 24 hr Exam Narrative Narrative: EKG 02/23/23 Normal sinus rhythm, rate 67 Ventricular paced ECHO 07/2021 Mild dilatation left atrium Definity contrast used to delineate endocardial borders. [place] left ventricular chamber size. Mild concentric hypertrophy. Patient has evidence of mid inferior septal hypokinesis. This abnormality may be secondary to presence of bundle branch block which may make it difficult to differentiate between an infarct and an electrical conduction abnormality EF 60% grade I diastolic dysfunction Pacer lead in right ventricle Trace aortic insufficiency Mild mitral and tricuspid insufficiency NO previous echo for comparison Assessment and Plan Final Anesthetic Review Family History of Problems with Anesthesia: No History of Problems with Anesthesia: No Documented by User: Mary Dodge MD 01/23/25 15:06 [facility] Past Medical History Medical History Hx of cardiac pacemaker (~2018) Myocardial infarction (~1995) Hx of testicular biopsy CAD (coronary artery disease) Complete heart block Schizoaffective disorder Pacemaker Diabetes HLD (hyperlipidemia) HTN (hypertension) Surgical History Surgical History H/O colonoscopy Hx of cataract extraction Social History Social History Are you a primary day care center director to a significant other at home: No Do you presently have visiting nurse or other home services: No Patient Tobacco Use Status: Current everyday Tobacco user Tobacco use type: Cigarette Cigarette Packs Per Day: 1 Cigarettes Per Day: 20.0 Second Hand Smoke Exposure: No Use of substances other than those prescribed or required for medical reasons: No Advance Directives: No Advance Directives Information Provided: Yes Meds Allergies Allergy/AdvReac Type Severity Reaction Status Date / Time tamsulosin Allergy Hallucinati Verified 01/23/25 11:47 ons Home Medications ?Medication ?Instructions ?Recorded ?Confirmed ?Last Taken ?Type amlodipine 5 mg tablet 5 mg PO DAILY 02/24/24 01/23/25 01/23/25 History aspirin 81 mg chewable tablet 1 tab PO DAILY 02/24/24 01/23/25 Unknown History divalproex 250 mg tablet,delayed 250 mg PO BID 02/24/24 01/23/25 Unknown History release divalproex 500 mg tablet,delayed 500 mg PO BID 02/24/24 01/23/25 Unknown History release insulin glargine 100 unit/mL (3 unit subcut 02/24/24 01/05/25 01/21/25 History mL) subcutaneous pen (Lantus Solostar U-100 Insulin) lisinopril 2.5 mg tablet 2.5 mg PO DAILY 02/24/24 01/23/25 Unknown History magnesium oxide 400 mg (241.3 mg 400 mg PO DAILY 02/24/24 01/23/25 Unknown History magnesium) tablet metformin 1,000 mg tablet 1,000 mg PO BID 02/24/24 01/23/25 Unknown History olanzapine 10 mg tablet 10 mg PO BEDTIME 02/24/24 01/23/25 Unknown History risperidone 2 mg disintegrating 2 mg PO BID 02/24/24 01/23/25 Unknown History tablet sennosides 8.6 mg-docusate sodium 1 tab PO DAILY 02/24/24 01/23/25 Unknown History 50 mg tablet (Senexon-S) metoprolol succinate 25 mg 25 mg PO DAILY 08/03/24 01/23/25 01/23/25 History tablet,extended release 24 hr Exam Airway Mallampati Class: III (long neck) TM Dist: >3cm Neck ROM: Full Loose/Missing/Broken Teeth: Yes, Upper and Lower Heart: RRR Lungs: CTA Assessment and Plan Assessment Anesthesia Assessment: Anesthesia Plan Discussed and Chart Reviewed Final Anesthetic Review NPO: Yes ASA Class: III Final Preanesthetic Review: Meds/Allgs Chart Reviewed, Consent Obtained/Reviewed and Anes Risks/Benef Reviewed Patient Risk: Intermediate Procedure Risk: Low Anesthetic Plan Anesthetic Plan: GA Disposition: Standard PACU
[2025-01-19 10:47] VITALS: BMI 26.1
--- NOTE | ~2025-01-23 | FL_ITS ---
EXAMINATION: [place] GUIDANCE ONLY HISTORY: CYSTO REMOVAL OF STENT LEFT COMPARISON: None available. TECHNIQUE: Fluoroscopy time: 4 seconds. Cumulative Dose: 1.20 mGy. DAP: 252.20 mGycm2 Images: 2. FINDINGS: Fluoroscopic spot films of the left abdomen demonstrate removal of the previously seen left nephroureteral stent. FL/FL guidance in OR IMPRESSION: Fluoroscopy during procedure. Please see procedure report for additional information. Electronically signed by: Issa Burgos MD 01/23/2025 03:37 PM PIPPA
[2025-01-23 11:45] VITALS: BMI 26.4
[2025-01-23 11:59] LABS: Glucose, Whole Blood 228 mg/dL (60-115)
[2025-01-23 12:12] VITALS: BP 144/68; PULSE 68; RESP 18; TEMP 36.5; O2SAT 99
[2025-01-23] MEDS: Lactated Ringers 1,000 ML 100 ML IVCONT (12:16)
--- NOTE | 2025-01-23 13:57 | MHC.SHP ---
Pre-Procedural Eval Section A - 24 Hr Update-Section A only Date of Service: 01/23/25 The patient is an INPATIENT: No The patient has been examined within 24 hours of the surgical procedure. The History & Physical has been completed within 30 days and I have reviewed it.: Yes Section B - Complete if H&P > 30 days Chief Complaint: Unspecified hydronephrosis Allergies: Allergies Allergy/AdvReac Type Severity Reaction Status Date / Time tamsulosin Allergy Hallucinati Verified 01/23/25 11:47 ons Plan Diagnosis/Plan: Unchanged I have reviewed the history and physical and performed a pertinent physical examination on my patient. No changes have occurred unless specified. Cystoscopy removed ureteral stent. left. Time Spent With Patient Time: Total time managing care of this patient today ____ minutes.
--- NOTE | 2025-01-23 13:58 | P.OP_ITS ---
Operative Note Operative Note Date of Service: 01/23/25 Narrative: PreOperative Diagnosis:?? Left hydronephrosis status post left ureteral stent Post Operative Diagnosis:?? ?Left hydronephrosis status post left ureteral stent Procedure: - cystoscopy, left ureteral stent removal Surgeon:?Dr Sonia Rojas Anesthesia:? general Procedure: After informed consent was verified the patient was brought to the operating placed on the OR table in supine position.? General Anesthesia was administered per protocol.? The patient was placed in lithotomy position, prepped and draped in the usual sterile fashion.? Safety pause time-out and side of surgery confirmed.? Antibiotics confirmed. Ancef, and Gentamycin administered. A 22 Maori cystoscope was inserted transurethrally, the bulbous urethra was within normal limits. The prostatic urethra noted trilobar enlargement. The bladder was visualized.? The urine was cloudy, urine was sent for culture. The bladder was trabeculated with cellule changes, the distal end of ureteral stent visualized. The grasping forceps were used and the stent was removed without difficulty. Flouroscopy used. The bladder was emptied.? The rigid cystoscope was removed. ? The patient tolerated the procedure well and was brought to the recovery room in stable condition. Complications: None EBL: minimal (<5 mL) Drains: none
[2025-01-23 15:00] VITALS: BP 134/62; PULSE 76; RESP 18; TEMP 36.5; O2SAT 94
[2025-01-23 15:05] VITALS: BP 141/71; PULSE 64; O2SAT 95
[2025-01-23 15:15] VITALS: BP 140/69; PULSE 64; RESP 16; O2SAT 95
== END 2025-01-23 16:07 | disposition home or self-care (01) ==
PROVIDERS: PCP Internal Medicine; Visit Provider Urology
PROC: (CPT 52310; principal; 2025-01-23 13:20)
DX: N13.30 Unspecified hydronephrosis (principal); Z96.0 Presence of urogenital implants; N39.0 Urinary tract infection, site not specified; N13.4 Hydroureter; B96.21 Shiga toxin-producing Escherichia coli [E. coli] [STEC] O157 as the cause of diseases classified elsewhere; I44.2 Atrioventricular block, complete; Z95.0 Presence of cardiac pacemaker; I10 Essential (primary) hypertension; E78.5 Hyperlipidemia, unspecified; E11.9 Type 2 diabetes mellitus without complications; F25.9 Schizoaffective disorder, unspecified; Z79.4 Long term (current) use of insulin; Z79.84 Long term (current) use of oral hypoglycemic drugs; Z79.82 Long term (current) use of aspirin; Z79.899 Other long term (current) drug therapy; F17.210 Nicotine dependence, cigarettes, uncomplicated
CPT/HCPCS: 52310; 82947; 87070; 87086; 87088; 87186; 87205; J0690; J1580; J2003; J2704; J3010

== ENCOUNTER → 2025-01-23 10:46 | Outpatient (BNV) | payer OTHER, SELFPAY | PROVIDERS: PCP Internal Medicine; Visit Provider Urology | DX: N13.30 Unspecified hydronephrosis (principal) | CPT/HCPCS: 52310 ==